=== PATIENT | female | born 1980 | race American Indian/Alaskan Native ===

== ENCOUNTER 2017-12-17 09:56 | Inpatient (IN) | payer MEDICAID, OTHER ==
[2017-12-17 09:57] VITALS: BMI 21.2
[2017-12-17] MEDS ORDERED: Sodium Chloride 0.9% 300 ML IV ONE (10:47)
[2017-12-17] MEDS ORDERED: Sodium Chloride 0.9% 500 ML IV ONE (10:58)
[2017-12-17 11:14] LABS: BASO # 0.1 K/uL (0.0-0.2); BASO % 0.4 % (0.0-2.0); EOS # 0.1 K/uL (0.0-0.7); EOS % 0.2 % (0.0-4.0); HEMOGLOBIN 7.4 g/dL (11.0-16.0); LYMPH # 1.2 K/uL (1.0-4.3); MEAN CELL VOLUME 83.6 fL (81.0-99.0); MEAN CORPUSCULAR HEMOGLOBIN 26.2 pg (27.0-31.0); MEAN CORPUSCULAR HGB CONC 31.3 g/dL (33.0-37.0); MEAN PLATELET VOLUME 7.4 fL (7.2-11.7); MONO # 1.5 K/uL (0.0-0.8); MONO % 6.4 % (0.0-10.0); NEUT # 21.1 K/uL (1.8-7.0); NRBC % 0.5 % (0.0-2.0); PLATELET COUNT 395 K/uL (130-400); RBC 2.82 Mil/uL (3.80-5.20); RED CELL DISTRIBUTION WIDTH 17.6 % (11.5-14.5)
[2017-12-17 11:23] LABS: VENOUS BLOOD GAS BASE EXCESS -26.6 mmol/L (0.0-2.0); VENOUS BLOOD GAS PCO2 14 mmHg (40-60); VENOUS BLOOD GAS PO2 75 mm/Hg (30-55); VENOUS BLOOD PH 6.98 (7.32-7.43)
[2017-12-17 11:30] LABS: ALB/GLOB RATIO 0.6 (1.0-2.1); ALBUMIN 3.5 g/dL (3.5-5.0); ALT/SGPT < 6 U/L (9-52); AST/SGOT 14 U/L (14-36); CALCIUM 8.8 mg/dl (8.6-10.4)
--- NOTE | 2017-12-17 11:33 | RAD ---
PROCEDURE: CHEST RADIOGRAPH, 1 VIEW HISTORY: SOB COMPARISON: No prior studies available FINDINGS: In situ dual-lumen dialysis catheter with tips in the SVC/RA junction. LUNGS: Poor inspiration with low lung volumes, crowded bronchovascular markings and minor bibasilar atelectasis. PLEURA: No pneumothorax or pleural fluid seen. CARDIOVASCULAR: Heart appears mildly enlarged OSSEOUS STRUCTURES: No significant abnormalities. VISUALIZED UPPER ABDOMEN: Normal. OTHER FINDINGS: None. IMPRESSION: Poor inspiration with low lung volumes, crowded bronchovascular markings and minor bibasilar atelectasis.
[2017-12-17 11:35] LABS: INR 1.2; PROTHROMBIN TIME 14.1 SECONDS (9.7-12.2)
[2017-12-17] MEDS ORDERED: Sodium Chloride 0.9% 200 ML IV ONE (11:44)
[2017-12-17 11:55] LABS: B-TYPE NATRIURETIC PEPTIDE 19600 pg/mL (0-450)
[2017-12-17 11:56] LABS: LYMPHOCYTE 4 % (20-40); MONOCYTE 3 % (0-10); NEUTROPHIL 93 % (50-75); TOTAL CELLS COUNTED 100
[2017-12-17 11:57] LABS: ANISOCYTOSIS SLIGHT; HYPOCHROMIC SLIGHT; PLATELET ESTIMATE NORMAL (NORMAL); POLYCHROMIC SLIGHT
[2017-12-17 12:13] LABS: BLOOD UREA NITROGEN 132 mg/dL (7-17)
--- NOTE | 2017-12-17 12:20 | C.PDOC ---
History Of Present Illness 37yo female, with history of ESRD currently on hemodialysis, presents to ED with complaints of weakness and states she has not had her dialysis for the past week due to insurance issues. She also states she has pressure ulcers to her buttock and right heel. She denies any chest pain, shortness of breath, fever or chills. She has no other medical complaints. Time Seen by Provider: 12/17/17 10:08 Chief Complaint (Nursing): Weakness/Neurological Deficit History Per: Patient History/Exam Limitations: no limitations Onset/Duration Of Symptoms: Days Current Symptoms Are (Timing): Still Present Past Medical History Vital Signs: Last Vital Signs Temp 97.3 F L 12/17/17 10:11 Pulse 81 12/17/17 12:43 Resp 20 12/17/17 12:43 BP 86/37 L 12/17/17 12:43 Pulse Ox 100 12/17/17 12:43 - Medical History PMH: Anemia, Diabetes, HTN, Chronic Kidney Disease Denies: Depression, Deep Vein Thrombosis Surgical History: Denies: Pacemaker - [facility] Procedures (05/05/17) DRAINAGE OF RIGHT KIDNEY, PERCUTANEOUS APPROACH, DIAGNOSTIC (05/05/17) EXCISION OF L FOOT SUBCU/FASCIA, OPEN APPROACH (05/05/17) EXCISION OF LEFT KIDNEY, PERCUTANEOUS APPROACH, DIAGNOSTIC (05/05/17) INSERT INFUSION DEV IN R INT JUGULAR VEIN, PERC (05/05/17) INSERTION OF INFUSION DEV INTO R SUBCLAV VEIN, PERC APPROACH (05/05/17) TRANSFUSE NONAUT RED BLOOD CELLS IN PERIPH VEIN, PERC (05/05/17) Family History: States: No Known Family Hx - Social History Hx Tobacco Use: No Hx Alcohol Use: No Hx Substance Use: No - Immunization History Hx Tetanus Toxoid Vaccination: No Hx Influenza Vaccination: No Hx Pneumococcal Vaccination: No Review Of Systems Except As Marked, All Systems Reviewed And Found Negative. Constitutional: Positive for: Weakness. Negative for: Fever, Chills Cardiovascular: Negative for: Chest Pain Respiratory: Negative for: Shortness of Breath Physical Exam - Physical Exam Appears: Non-toxic, Chronically Ill (cachectic) Skin: Normal Color, Warm, Dry Head: Atraumatic, Normacephalic Eye(s): bilateral: Normal Inspection, PERRL Neck: Normal ROM, Supple Chest: Symmetrical, Other (permacath right anterior chest) Cardiovascular: Rhythm Regular Respiratory: Normal Breath Sounds, Other (patient able to protect her own airway ) Gastrointestinal/Abdominal: Normal Exam, Soft, No Tenderness Extremity: Normal ROM, No Deformity, Other (5x3cm pressure ulcer to top sacral region with purulent drainage. Ulcer noted to right heel with granulation tissue ) Neurological/Psych: Oriented x3 ED Course And Treatment - Laboratory Results Result Diagrams: 12/17/17 11:01 12/17/17 11:01 ECG: Interpreted By Me, Viewed By Me ECG Rhythm: Sinus Rhythm ECG Interpretation: Normal Interpretation Of ECG: Normal intervals, normal axis, no ST/T changes Rate From EC O2 Sat by Pulse Oximetry: 100 (RA) Pulse Ox Interpretation: Normal - Other Rad CXR X-Ray: Read By Radiologist (11:30) Interpretation: FINDINGS: In situ dual-lumen dialysis catheter with tips in the SVC/RA junction. LUNGS: Poor inspiration with low lung volumes, crowded bronchovascular markings and minor bibasilar atelectasis. PLEURA: No pneumothorax or pleural fluid seen. CARDIOVASCULAR: Heart appears mildly enlarged. OSSEOUS STRUCTURES: No significant abnormalities. VISUALIZED UPPER ABDOMEN: Normal. OTHER FINDINGS: None. IMPRESSION: Poor inspiration with low lung volumes, crowded bronchovascular markings and minor bibasilar atelectasis. Critical Care Time - Critical Care Note Total Time (in mins): 75 Documented critical care: time excludes all time spent performing seperately billable procedures. Medical Decision Making Medical Decision Making: Impression: ESRD, metabolic acidosis Plan: -- Labs -- IV Fluids -- IV Cefepime 1gm in 50ml -- CXR Time: [address] Watt, ICU iron worker Page placed to Dr. Kay (patient's mechanical expert) Time: [address] Arreguin Time: [address] Kay (patient's mechanical expert) Time: [address] Arreguin, and patient to be admitted under him. time: 1154 Repeat vitals indicates improved blood pressure 90/40 Time: 1203 Dr. Ferrera who is covering for Dr. Kay is in the ER and will evaluate patient at bedside. Time: 1215 Patient seen and evaluated by Dr. Watt in the ER Disposition Discussed With DrElizabeth: Ching Arreguin Doctor Will See Patient In The: Hospital Counseled Patient/Family Regarding: Studies Performed, Diagnosis - Disposition Disposition: HOSPITALIZED Disposition Time: 13:16 Condition: FAIR - Clinical Impression Clinical Impression: ESRD (end stage renal disease), Metabolic acidosis - PA / EX ASSISTANT/PROGRAM DIRECTOR / Resident Statement MD/DO has reviewed & agrees with the documentation as recorded. - Scribe Statement The provider has reviewed the documentation as recorded by the Scribe (Erika Liu) Provider Attestation: All medical record entries made by the Scribe were at my direction and personally dictated by me. I have reviewed the chart and agree that the record accurately reflects my personal performance of the history, physical exam, medical decision making, and the department course for this patient. I have also personally directed, reviewed, and agree with the discharge instructions and disposition.
[2017-12-17 12:21] LABS: GFR AFRICAN-AMERICAN 4; GFR NON-AFRICAN AMERICAN 4
--- NOTE | 2017-12-17 12:23 | CP.PCM.CON ---
History of Present Illness - History of Present Illness History of Present Illness: 37 y/o AA female missed dilaysis over 1 week and cane to ER very weak. Found to have increased leukocytosis, severe metabolic acidosis, uremia, severe anemia. Poorly compliant in past with HD PMH: DM 2 DIABETIC NEPHROPATHY PVD PSH: PERMCATH LEFT LE ULCER REPAIR LEFT TOE #1 AMPUTATION Review of Systems - Constitutional Constitutional: Fatigue, Lethargy, Malaise, Weight Loss, Weakness - EENT Eyes: Blurred Vision Ears: absent: As Per HPI, Decreased Hearing, Ear Discharge, Ear Pain, Tinnitus, Abnormal Hearing, Disequilibrium, Dizziness, Other Nose/Mouth/Throat: absent: As Per HPI, Epistaxis, Nasal Congestion, Nasal Discharge, Nasal Obstruction, Nasal Trauma, Nose Pain, Post Nasal Drip, Sinus Pain, Sinus Pressure, Bleeding Gums, Change in Voice, Dental Pain, Dry Mouth, Dysphagia, Halitosis, Hoarsness, Lip Swelling, Mouth Lesions, Mouth Pain, Odynophagia, Sore Throat, Throat Swelling, Tongue Swelling, Facial Pain, Neck Pain, Neck Mass, Other - Cardiovascular Cardiovascular: Dyspnea on Exertion, Lightheadedness - Respiratory Respiratory: Cough, Dyspnea on Exertion - Gastrointestinal Gastrointestinal: Early Satiety, Nausea - Genitourinary Genitourinary: As Per HPI - Musculoskeletal Musculoskeletal: Muscle Cramps, Muscle Weakness, Myalgias - Integumentary Integumentary: Wounds - Neurological Neurological: Weakness Past Patient History - Infectious Disease Hx of Infectious Diseases: None - Tetanus Immunizations Tetanus Immunization: Unknown - Past Medical History & Family History Past Medical History?: Yes Past Family History: Reviewed and not pertinent - Past Social History Smoking Status: Never Smoked Chewing Tobacco Use: No Cigar Use: No Alcohol: None Drugs: Denies Home Situation {Lives}: With Family - CARDIAC Hx Pacemaker: No - PULMONARY Hx Respiratory Disorders: No - NEUROLOGICAL Other/Comment: NEUROPATHY - HEENT Hx HEENT Problems: No - RENAL Hx Chronic Kidney Disease: No - ENDOCRINE/METABOLIC Hx Diabetes Mellitus Type 2: Yes - HEMATOLOGICAL/ONCOLOGICAL Hx Anemia: Yes Hx Cancer: No - INTEGUMENTARY Hx Dermatological Problems: No - MUSCULOSKELETAL/RHEUMATOLOGICAL Hx Falls: No - GASTROINTESTINAL Hx Gastrointestinal Disorders: No - GENITOURINARY/GYNECOLOGICAL Hx Genitourinary Disorders: No - PSYCHIATRIC Hx Depression: No Hx Emotional Abuse: No Hx Physical Abuse: No Hx Substance Use: No - SURGICAL HISTORY Hx Section: Yes Hx Mastectomy: No - ANESTHESIA Hx Anesthesia: Yes Hx Anesthesia Reactions: No Meds Allergies/Adverse Reactions: Allergies Allergy/AdvReac Type Severity Reaction Status Date / Time vancomycin Allergy RASH Verified 12/17/17 10:17 - Medications Medications: Current Medications Cefepime HCl (Maxipime Iv 1 Gm Premix) 1 gm in 50 mls @ 100 mls/hr IVPB Q12H AUSTYN PRN Reason: Protocol Physical Exam - Constitutional Appears: Cachectic, Chronically Ill - Head Exam Head Exam: ATRAUMATIC, NORMAL INSPECTION - Eye Exam Eye Exam: EOMI, Normal appearance - Neck Exam Neck exam: Positive for: Normal Inspection. Negative for: Tenderness - Respiratory Exam Respiratory Exam: Clear to Auscultation Bilateral, NORMAL BREATHING PATTERN - Cardiovascular Exam Cardiovascular Exam: REGULAR RHYTHM, +S1 - GI/Abdominal Exam GI & Abdominal Exam: Soft. absent: Tenderness - Extremities Exam Extremities exam: Positive for: calf tenderness, tenderness - Neurological Exam Neurological exam: Abnormal Gait, CN II-XII Intact - Skin Skin Exam: Erythema, Pallor, Warm Results - Vital Signs Recent Vital Signs: Last Vital Signs Temp 97.3 F L 12/17/17 10:11 Pulse 83 12/17/17 11:35 Resp 20 12/17/17 11:35 BP 78/41 L 12/17/17 11:35 Pulse Ox 100 12/17/17 11:35 - Labs Result Diagrams: 12/17/17 11:01 12/17/17 11:01 Labs: Laboratory Results - last 24 hr 12/17/17 12/17/17 12/17/17 10:16 11:01 11:01 WBC 24.0 H RBC 2.82 L Hgb 7.4 L Hct 23.6 L MCV 83.6 MCH 26.2 L MCHC 31.3 L RDW 17.6 H Plt Count 395 MPV 7.4 Neut % (Auto) 88.0 H Lymph % (Auto) 5.0 L [place] % (Auto) 6.4 Eos % (Auto) 0.2 Baso % (Auto) 0.4 Neut # (Auto) 21.1 H Lymph # (Auto) 1.2 [place] # (Auto) 1.5 H Eos # (Auto) 0.1 Baso # (Auto) 0.1 Neutrophils % (Manual) 93 H Lymphocytes % (Manual) 4 L Monocytes % (Manual) 3 Platelet Estimate Normal Polychromasia Slight Hypochromasia (manual) Slight Anisocytosis (manual) Slight PT INR APTT pO2 VBG pH VBG pCO2 VBG HCO3 VBG Total CO2 VBG O2 Sat (Calc) VBG Base Excess VBG Potassium Glucose Lactate Crit Value Called To Crit Value Called By Crit Value Read Back Blood Gas Notified Time Sodium 142 Potassium 5.1 Chloride 113 H BUN 132 H* POC Glucose (mg/dL) 259 H Random Glucose 316 H Calcium 8.8 Magnesium 2.8 H Total Bilirubin 0.8 AST 14 D ALT < 6 L Alkaline Phosphatase 193 H D Total Creatine Kinase 41 Troponin I 0.0370 NT-Pro-B Natriuret Pep 90038 H Total Protein 9.6 H Albumin 3.5 Globulin 6.1 H Albumin/Globulin Ratio 0.6 L Venous Blood Potassium Serum Ketones Negative 12/17/17 12/17/17 11:01 11:18 WBC RBC Hgb Hct MCV MCH MCHC RDW Plt Count MPV Neut % (Auto) Lymph % (Auto) [place] % (Auto) Eos % (Auto) Baso % (Auto) Neut # (Auto) Lymph # (Auto) [place] # (Auto) Eos # (Auto) Baso # (Auto) Neutrophils % (Manual) Lymphocytes % (Manual) Monocytes % (Manual) Platelet Estimate Polychromasia Hypochromasia (manual) Anisocytosis (manual) PT 14.1 H INR 1.2 APTT 36 H pO2 75 H VBG pH 6.98 L* VBG pCO2 14 L* VBG HCO3 3.8 VBG Total CO2 3.7 L VBG O2 Sat (Calc) 96.6 H VBG Base Excess -26.6 L VBG Potassium 4.9 Glucose 308 H Lactate 1.4 Crit Value Called To Dr neff Crit Value Called By Mamadou arceo winemaker Crit Value Read Back Y Blood Gas Notified Time 1122 Sodium 136.0 Potassium Chloride 109.0 H BUN POC Glucose (mg/dL) Random Glucose Calcium Magnesium Total Bilirubin AST ALT Alkaline Phosphatase Total Creatine Kinase Troponin I NT-Pro-B Natriuret Pep Total Protein Albumin Globulin Albumin/Globulin Ratio Venous Blood Potassium 4.9 Serum Ketones Assessment & Plan (1) Type 2 diabetes mellitus with diabetic nephropathy Status: Acute (2) ESRD (end stage renal disease) Status: Acute (3) Metabolic acidosis Status: Acute (4) Sepsis associated with vascular access catheter Status: Acute - Assessment and Plan (Free Text) Assessment: r/o sepsis- suspect line sepsis ESRD Diabetic nephropathy dialysis non-compliance severe metabolic acidosis severe chronic anemia Plan: Immediate dialysis Blood cultures IV ABs Would recommend HD AV access
[2017-12-17] MEDS ORDERED: DOPamine 400mg/250ml D5W 400 MG/250 ML BAG IV ONE (12:39)
[2017-12-17] MEDS: DOPamine 400mg/250ml D5W 400 MG/250 ML BAG IV PRN (12:43)
[2017-12-17] MEDS: Cefepime IV 1 gm in Dextrose 1 GM/50 ML BAG IVPB SCH ×2 (12:52→23:52)
--- NOTE | 2017-12-17 13:00 | CP.PCM.CON ---
History of Present Illness - History of Present Illness History of Present Illness: Critical Care consult note for Dr. Watt This is a 37 year old female with PMHx ESRD on HD (non-compliant), DM 1, HTN, Anemia, DVT who presents complaining of general malaise and weakness. Patient has history of medical non-compliance which extends to her hemodialysis sessions. Patient has not had dialysis in 1 week. Patient today presents with metabolic acidosis similar to prior presentation in [facility] in April 2017. She was fluid resuscitated with 500 cc of NS in the ED today. Patient denies fever, chills, chest pain, dyspnea. Patient's primary complaint at time of encounter was difficulty sleeping. PMHx: HTN, DM2, Anemia, Rt leg DVT PSHx: , Rt leg vasc surgery Allergies: Vancomycin--rash Social: Denied tobacco/etoh/illicit drugs, pt is wheelchair bound Review of Systems - Constitutional Constitutional: absent: Chills, Fever - EENT Eyes: absent: Change in Vision Ears: absent: Decreased Hearing Nose/Mouth/Throat: absent: Nasal Congestion - Cardiovascular Cardiovascular: absent: Chest Pain - Respiratory Respiratory: absent: Dyspnea - Gastrointestinal Gastrointestinal: absent: Abdominal Pain - Genitourinary Genitourinary: absent: Dysuria - Musculoskeletal Musculoskeletal: Other (chronic leg weakness) - Integumentary Integumentary: Other (chronic diabetic foot ulcers) - Neurological Neurological: Weakness - Psychiatric Psychiatric: Other (poor sleep). absent: Change in Appetite - Endocrine Endocrine: absent: Palpitations Past Patient History - Infectious Disease Hx of Infectious Diseases: None - Tetanus Immunizations Tetanus Immunization: Unknown - Past Medical History & Family History Past Medical History?: Yes Past Family History: Reviewed and not pertinent - Past Social History Smoking Status: Never Smoked Chewing Tobacco Use: No Cigar Use: No Alcohol: None Drugs: Denies Home Situation {Lives}: With Family - CARDIAC Hx Hypertension: Yes Hx Pacemaker: No - PULMONARY Hx Respiratory Disorders: No - NEUROLOGICAL Other/Comment: NEUROPATHY - HEENT Hx HEENT Problems: No - RENAL Hx Chronic Kidney Disease: Yes - ENDOCRINE/METABOLIC Hx Diabetes Mellitus Type 2: Yes - HEMATOLOGICAL/ONCOLOGICAL Hx Anemia: Yes - INTEGUMENTARY Hx Dermatological Problems: No - MUSCULOSKELETAL/RHEUMATOLOGICAL Hx Falls: No - GASTROINTESTINAL Hx Gastrointestinal Disorders: No - GENITOURINARY/GYNECOLOGICAL Hx Genitourinary Disorders: No - PSYCHIATRIC Hx Depression: No Hx Substance Use: No - SURGICAL HISTORY Hx Section: Yes Hx Mastectomy: No - ANESTHESIA Hx Anesthesia: Yes Hx Anesthesia Reactions: No Meds Allergies/Adverse Reactions: Allergies Allergy/AdvReac Type Severity Reaction Status Date / Time vancomycin Allergy RASH Verified 12/17/17 10:17 - Medications Medications: Current Medications Cefepime HCl (Maxipime Iv 1 Gm Premix) 1 gm in 50 mls @ 100 mls/hr IVPB Q12H AUSTYN PRN Reason: Protocol Last Admin: 12/17/17 12:52 Dose: 100 mls/hr Dopamine HCl/Dextrose (Dopamine 400mg/250ml D5w) 400 mg in 250 mls @ 3.912 mls/ hr IV .Q24H PRN; Protocol; 2 MCG/KG/MIN PRN Reason: TITRATE PER MD ORDER Last Admin: 12/17/17 12:43 Dose: 2 mcg/kg/min, 3.912 mls/hr Insulin Aspart (Novolog) 0 unit SC ACHS AUSTYN PRN Reason: Protocol Physical Exam - Constitutional Appears: No Acute Distress, Cachectic, Chronically Ill - Head Exam Head Exam: ATRAUMATIC, NORMOCEPHALIC - Eye Exam Eye Exam: EOMI, PERRL - ENT Exam ENT Exam: Mucous Membranes Moist - Respiratory Exam Respiratory Exam: Decreased Breath Sounds. absent: Rales, Rhonchi, Wheezes - Cardiovascular Exam Cardiovascular Exam: REGULAR RHYTHM, +S1, +S2 - GI/Abdominal Exam GI & Abdominal Exam: Normal Bowel Sounds, Soft. absent: Tenderness - Extremities Exam Extremities exam: Negative for: pedal edema Additional comments: Multiple leg/foot ulcers in different stages of healing - Neurological Exam Neurological exam: Alert, Oriented x3 - Psychiatric Exam Psychiatric exam: Flat Affect, Normal Mood - Skin Skin Exam: Dry, Warm Additional comments: Right sided subclavian dialysis access Results - Vital Signs Recent Vital Signs: Last Vital Signs Temp 97.3 F L 12/17/17 10:11 Pulse 81 12/17/17 12:43 Resp 20 12/17/17 12:43 BP 86/37 L 12/17/17 12:43 Pulse Ox 100 12/17/17 12:43 - Labs Result Diagrams: 12/17/17 11:01 12/17/17 11:01 Labs: Laboratory Results - last 24 hr 12/17/17 12/17/17 12/17/17 10:16 11:01 11:01 WBC 24.0 H RBC 2.82 L Hgb 7.4 L Hct 23.6 L MCV 83.6 MCH 26.2 L MCHC 31.3 L RDW 17.6 H Plt Count 395 MPV 7.4 Neut % (Auto) 88.0 H Lymph % (Auto) 5.0 L [place] % (Auto) 6.4 Eos % (Auto) 0.2 Baso % (Auto) 0.4 Neut # (Auto) 21.1 H Lymph # (Auto) 1.2 [place] # (Auto) 1.5 H Eos # (Auto) 0.1 Baso # (Auto) 0.1 Neutrophils % (Manual) 93 H Lymphocytes % (Manual) 4 L Monocytes % (Manual) 3 Platelet Estimate Normal Polychromasia Slight Hypochromasia (manual) Slight Anisocytosis (manual) Slight PT INR APTT pO2 VBG pH VBG pCO2 VBG HCO3 VBG Total CO2 VBG O2 Sat (Calc) VBG Base Excess VBG Potassium Glucose Lactate Crit Value Called To Crit Value Called By Crit Value Read Back Blood Gas Notified Time Sodium 142 Potassium 5.1 Chloride 113 H Carbon Dioxide < 5 L* Anion Gap 29 H BUN 132 H* Creatinine 11.8 H* D Est GFR ( Amer) 4 Est GFR (Non-Af Amer) 4 POC Glucose (mg/dL) 259 H Random Glucose 316 H Calcium 8.8 Magnesium 2.8 H Total Bilirubin 0.8 AST 14 D ALT < 6 L Alkaline Phosphatase 193 H D Total Creatine Kinase 41 Troponin I 0.0370 NT-Pro-B Natriuret Pep 44029 H Total Protein 9.6 H Albumin 3.5 Globulin 6.1 H Albumin/Globulin Ratio 0.6 L Beta HCG, Quant < 2.39 Venous Blood Potassium Serum Ketones Negative 12/17/17 12/17/17 11:01 11:18 WBC RBC Hgb Hct MCV MCH MCHC RDW Plt Count MPV Neut % (Auto) Lymph % (Auto) [place] % (Auto) Eos % (Auto) Baso % (Auto) Neut # (Auto) Lymph # (Auto) [place] # (Auto) Eos # (Auto) Baso # (Auto) Neutrophils % (Manual) Lymphocytes % (Manual) Monocytes % (Manual) Platelet Estimate Polychromasia Hypochromasia (manual) Anisocytosis (manual) PT 14.1 H INR 1.2 APTT 36 H pO2 75 H VBG pH 6.98 L* VBG pCO2 14 L* VBG HCO3 3.8 VBG Total CO2 3.7 L VBG O2 Sat (Calc) 96.6 H VBG Base Excess -26.6 L VBG Potassium 4.9 Glucose 308 H Lactate 1.4 Crit Value Called To Dr neff Crit Value Called By Mamadou arceo glue reel operator Crit Value Read Back Y Blood Gas Notified Time 1122 Sodium 136.0 Potassium Chloride 109.0 H Carbon Dioxide Anion Gap BUN Creatinine Est GFR ( Amer) Est GFR (Non-Af Amer) POC Glucose (mg/dL) Random Glucose Calcium Magnesium Total Bilirubin AST ALT Alkaline Phosphatase Total Creatine Kinase Troponin I NT-Pro-B Natriuret Pep Total Protein Albumin Globulin Albumin/Globulin Ratio Beta HCG, Quant Venous Blood Potassium 4.9 Serum Ketones Assessment & Plan - Assessment and Plan (Free Text) Assessment: This is a 37 year old female with PMHx ESRD on HD (non-compliant), DM 1, HTN, Anemia, DVT who presented with general malaise. She has not had dialysis in 1 week. Admitted to the ICU in need of urgent dialysis and found with metabolic acidosis. Neuro Awake, verbal Cardio Assessment: Hypotension Dopamine drip Pulm Saturating well on room air GI Renal dialysis diet Endocrine Assessment: DM 1 Aspart ISS Renal Assessment: ESRD on HD, non-compliant with HD Urgent dialysis today--will transfuse 2 units pRBCs with dialysis per nephro Dialysis MWF ordered Infectious Disease Cefepime 1 gm Q12H Prophylaxis Heparin SC Q12H GI ppx not indicated Discussed with Dr. Watt
--- NOTE | 2017-12-17 13:35 | CP.PCM.HP ---
History of Present Illness - History of Present Illness History of Present Illness: admitted to icu in severe metabolic acidosis with sepsis PT WAS ADMITTED IN [facility] IN 2017. HAD RENAL FAILURE ON PERMA CATH , AND FUNGAL INFECTION IN KIDNEY BY BIOPSY. SHE WAS ON IV MICAFUNGIN . SHE LEFT HOSPITAL AMA CURRENTLY ON DIALYSIS VIA SAME CATHER NOT GONE FOR DIALYSIS FOR 1 WEEK HAS VASCULAR SURGERY IN LEG RASH WITH IV VANCO NO SMOKING ILLICIT DRUGS ALERT AWAKE BP 90'S LUNGS CLEAR HEART N LOWER EXT MULTIPLE ULCERS ASS SEPTIC SHOCK ACUTE ON CH RENAL FAILURE T2DM Present on Admission - Present on Admission Any Indicators Present on Admission: No Past Patient History - Infectious Disease Hx of Infectious Diseases: None - Tetanus Immunizations Tetanus Immunization: Unknown - Past Medical History & Family History Past Medical History?: Yes Past Family History: Reviewed and not pertinent - Past Social History Smoking Status: Never Smoked Chewing Tobacco Use: No Cigar Use: No Alcohol: None Drugs: Denies Home Situation {Lives}: With Family - CARDIAC Hx Hypertension: Yes Hx Pacemaker: No - PULMONARY Hx Respiratory Disorders: No - NEUROLOGICAL Other/Comment: NEUROPATHY - HEENT Hx HEENT Problems: No - RENAL Hx Chronic Kidney Disease: Yes - ENDOCRINE/METABOLIC Hx Diabetes Mellitus Type 2: Yes - HEMATOLOGICAL/ONCOLOGICAL Hx Anemia: Yes - INTEGUMENTARY Hx Dermatological Problems: No - MUSCULOSKELETAL/RHEUMATOLOGICAL Hx Falls: No - GASTROINTESTINAL Hx Gastrointestinal Disorders: No - GENITOURINARY/GYNECOLOGICAL Hx Genitourinary Disorders: No - PSYCHIATRIC Hx Depression: No Hx Substance Use: No - SURGICAL HISTORY Hx Section: Yes Hx Mastectomy: No - ANESTHESIA Hx Anesthesia: Yes Hx Anesthesia Reactions: No Meds Allergies/Adverse Reactions: Allergies Allergy/AdvReac Type Severity Reaction Status Date / Time vancomycin Allergy RASH Verified 12/17/17 10:17 Results - Vital Signs Recent Vital Signs: Last Vital Signs Temp 97.3 F L 12/17/17 10:11 Pulse 81 12/17/17 12:43 Resp 20 12/17/17 12:43 BP 86/37 L 12/17/17 12:43 Pulse Ox 100 12/17/17 13:16 - Labs Result Diagrams: 12/17/17 11:01 12/17/17 11:01 Labs: Laboratory Results - last 24 hr 12/17/17 12/17/17 12/17/17 10:16 11:01 11:01 WBC 24.0 H RBC 2.82 L Hgb 7.4 L Hct 23.6 L MCV 83.6 MCH 26.2 L MCHC 31.3 L RDW 17.6 H Plt Count 395 MPV 7.4 Neut % (Auto) 88.0 H Lymph % (Auto) 5.0 L [place] % (Auto) 6.4 Eos % (Auto) 0.2 Baso % (Auto) 0.4 Neut # (Auto) 21.1 H Lymph # (Auto) 1.2 [place] # (Auto) 1.5 H Eos # (Auto) 0.1 Baso # (Auto) 0.1 Neutrophils % (Manual) 93 H Lymphocytes % (Manual) 4 L Monocytes % (Manual) 3 Platelet Estimate Normal Polychromasia Slight Hypochromasia (manual) Slight Anisocytosis (manual) Slight PT INR APTT pO2 VBG pH VBG pCO2 VBG HCO3 VBG Total CO2 VBG O2 Sat (Calc) VBG Base Excess VBG Potassium Glucose Lactate Crit Value Called To Crit Value Called By Crit Value Read Back Blood Gas Notified Time Sodium 142 Potassium 5.1 Chloride 113 H Carbon Dioxide < 5 L* Anion Gap 29 H BUN 132 H* Creatinine 11.8 H* D Est GFR ( Amer) 4 Est GFR (Non-Af Amer) 4 POC Glucose (mg/dL) 259 H Random Glucose 316 H Calcium 8.8 Magnesium 2.8 H Total Bilirubin 0.8 AST 14 D ALT < 6 L Alkaline Phosphatase 193 H D Total Creatine Kinase 41 Troponin I 0.0370 NT-Pro-B Natriuret Pep 35600 H Total Protein 9.6 H Albumin 3.5 Globulin 6.1 H Albumin/Globulin Ratio 0.6 L Beta HCG, Quant < 2.39 Venous Blood Potassium Serum Ketones Negative 12/17/17 12/17/17 11:01 11:18 WBC RBC Hgb Hct MCV MCH MCHC RDW Plt Count MPV Neut % (Auto) Lymph % (Auto) [place] % (Auto) Eos % (Auto) Baso % (Auto) Neut # (Auto) Lymph # (Auto) [place] # (Auto) Eos # (Auto) Baso # (Auto) Neutrophils % (Manual) Lymphocytes % (Manual) Monocytes % (Manual) Platelet Estimate Polychromasia Hypochromasia (manual) Anisocytosis (manual) PT 14.1 H INR 1.2 APTT 36 H pO2 75 H VBG pH 6.98 L* VBG pCO2 14 L* VBG HCO3 3.8 VBG Total CO2 3.7 L VBG O2 Sat (Calc) 96.6 H VBG Base Excess -26.6 L VBG Potassium 4.9 Glucose 308 H Lactate 1.4 Crit Value Called To Dr neff Crit Value Called By Mamadou arceo aircraft sheet metal mechanic Crit Value Read Back Y Blood Gas Notified Time 1122 Sodium 136.0 Potassium Chloride 109.0 H Carbon Dioxide Anion Gap BUN Creatinine Est GFR ( Amer) Est GFR (Non-Af Amer) POC Glucose (mg/dL) Random Glucose Calcium Magnesium Total Bilirubin AST ALT Alkaline Phosphatase Total Creatine Kinase Troponin I NT-Pro-B Natriuret Pep Total Protein Albumin Globulin Albumin/Globulin Ratio Beta HCG, Quant Venous Blood Potassium 4.9 Serum Ketones
[2017-12-17] MEDS: (Novolog) Insulin Aspart, Recombinant 100 u/ml 10 ml vial SC SCH ×2 (17:19→21:46)
--- NOTE | 2017-12-17 18:08 | CP.PCM.CON ---
History of Present Illness - History of Present Illness History of Present Illness: INFECTIOUS DISEASE CONSULT; HPI;. This is a 37 year old female with PMHx ESRD on HD (non-compliant), DM 1, HTN, Anemia, DVT who presents complaining of general malaise and weakness. Patient has history of medical non-compliance which extends to her hemodialysis sessions. Patient has not had dialysis in 1 week. Patient today presents with metabolic acidosis similar to prior presentation in [facility] in April 2017. She was fluid resuscitated with 500 cc of NS in the ED today. Patient denies fever, chills, chest pain, dyspnea. Patient's primary complaint at time of encounter was difficulty sleeping. INFECTIOUS DISEASE CONSULTATION REQUESTED BY PMD FOR BILATERAL LOWER EXTREMITY ULCERS AND DECUBITUS ULCER SACRUM DRAINING PURULENT DRAINAGE. HISTORY IS SKETCHY.PATIENT UNDERGOING EMERGENCY HEMODIALYSIS PRESENTLY. PATIENT ALLERGIC TO VANCOMYCIN AND STATES SHE GETS A RASH. PMHx: HTN, DM2, Anemia, Rt leg DVT PSHx: , Rt leg vasc surgery Allergies: Vancomycin--rash Social: Denied tobacco/etoh/illicit drugs, pt is wheelchair bound Review of Systems - Review of Systems All systems: reviewed and no additional remarkable complaints except (PATIENT WHEELCHAIR-BOUND/AND HAS CHRONIC ULCERS BOTH LOWER EXTREMITIES.) Past Patient History - Infectious Disease Hx of Infectious Diseases: None - Tetanus Immunizations Tetanus Immunization: Unknown - Past Medical History & Family History Past Medical History?: Yes Past Family History: Reviewed and not pertinent - Past Social History Smoking Status: Never Smoked Chewing Tobacco Use: No Cigar Use: No Alcohol: None Drugs: Denies Home Situation {Lives}: With Family - CARDIAC Hx Hypertension: Yes Hx Pacemaker: No - PULMONARY Hx Respiratory Disorders: No - NEUROLOGICAL Other/Comment: NEUROPATHY - HEENT Hx HEENT Problems: No - RENAL Hx Chronic Kidney Disease: Yes - ENDOCRINE/METABOLIC Hx Diabetes Mellitus Type 2: Yes - HEMATOLOGICAL/ONCOLOGICAL Hx Anemia: Yes - INTEGUMENTARY Hx Dermatological Problems: No - MUSCULOSKELETAL/RHEUMATOLOGICAL Hx Falls: No - GASTROINTESTINAL Hx Gastrointestinal Disorders: No - GENITOURINARY/GYNECOLOGICAL Hx Genitourinary Disorders: No - PSYCHIATRIC Hx Depression: No Hx Substance Use: No - SURGICAL HISTORY Hx Section: Yes Hx Mastectomy: No - ANESTHESIA Hx Anesthesia: Yes Hx Anesthesia Reactions: No Meds Allergies/Adverse Reactions: Allergies Allergy/AdvReac Type Severity Reaction Status Date / Time vancomycin Allergy RASH Verified 12/17/17 10:17 - Medications Medications: Current Medications Heparin Sodium (Porcine) (Heparin) 5,000 units SC Q12H AUSTYN Cefepime HCl (Maxipime Iv 1 Gm Premix) 1 gm in 50 mls @ 100 mls/hr IVPB Q12H AUSTYN PRN Reason: Protocol Last Admin: 12/17/17 12:52 Dose: 100 mls/hr Dopamine HCl/Dextrose (Dopamine 400mg/250ml D5w) 400 mg in 250 mls @ 3.912 mls/ hr IV .Q24H PRN; Protocol; 2 MCG/KG/MIN PRN Reason: TITRATE PER MD ORDER Last Admin: 12/17/17 12:43 Dose: 2 mcg/kg/min, 3.912 mls/hr Insulin Aspart (Novolog) 0 unit SC ACHS AUSTYN PRN Reason: Protocol Last Admin: 12/17/17 17:19 Dose: 4 unit Physical Exam - Constitutional Appears: No Acute Distress, Unkempt - Head Exam Head Exam: NORMAL INSPECTION - Eye Exam Eye Exam: EOMI, PERRL - ENT Exam ENT Exam: Normal Oropharynx - Neck Exam Neck exam: Positive for: Normal Inspection - Respiratory Exam Respiratory Exam: Clear to Auscultation Bilateral - Cardiovascular Exam Cardiovascular Exam: REGULAR RHYTHM, +S1, +S2 - GI/Abdominal Exam GI & Abdominal Exam: Normal Bowel Sounds, Soft - Extremities Exam Extremities exam: Negative for: calf tenderness, pedal edema (BI- LATERAL LOWER EXTREMITY ULCERS ON LEGS AND FEET.) - Neurological Exam Neurological exam: Alert, Oriented x3 - Skin Skin Exam: Normal Color (THERE IS ALSO SACRAL DECUBITUS ULCER DRAINING SEROPURULENT DRAINAGE) Results - Vital Signs Recent Vital Signs: Last Vital Signs Temp 97.3 F L 12/17/17 17:51 Pulse 107 H 12/17/17 17:51 Resp 25 H 12/17/17 17:51 BP 123/81 12/17/17 17:51 Pulse Ox 100 12/17/17 13:16 - Labs Result Diagrams: 12/17/17 11:01 12/17/17 11:01 Labs: Laboratory Results - last 24 hr 12/17/17 12/17/17 12/17/17 10:16 11:01 11:01 WBC 24.0 H RBC 2.82 L Hgb 7.4 L Hct 23.6 L MCV 83.6 MCH 26.2 L MCHC 31.3 L RDW 17.6 H Plt Count 395 MPV 7.4 Neut % (Auto) 88.0 H Lymph % (Auto) 5.0 L [place] % (Auto) 6.4 Eos % (Auto) 0.2 Baso % (Auto) 0.4 Neut # (Auto) 21.1 H Lymph # (Auto) 1.2 [place] # (Auto) 1.5 H Eos # (Auto) 0.1 Baso # (Auto) 0.1 Neutrophils % (Manual) 93 H Lymphocytes % (Manual) 4 L Monocytes % (Manual) 3 Platelet Estimate Normal Polychromasia Slight Hypochromasia (manual) Slight Anisocytosis (manual) Slight PT INR APTT pO2 VBG pH VBG pCO2 VBG HCO3 VBG Total CO2 VBG O2 Sat (Calc) VBG Base Excess VBG Potassium Glucose Lactate Crit Value Called To Crit Value Called By Crit Value Read Back Blood Gas Notified Time Sodium 142 Potassium 5.1 Chloride 113 H Carbon Dioxide < 5 L* Anion Gap 29 H BUN 132 H* Creatinine 11.8 H* D Est GFR ( Amer) 4 Est GFR (Non-Af Amer) 4 POC Glucose (mg/dL) 259 H Random Glucose 316 H Calcium 8.8 Magnesium 2.8 H Total Bilirubin 0.8 AST 14 D ALT < 6 L Alkaline Phosphatase 193 H D Total Creatine Kinase 41 Troponin I 0.0370 NT-Pro-B Natriuret Pep 06116 H Total Protein 9.6 H Albumin 3.5 Globulin 6.1 H Albumin/Globulin Ratio 0.6 L Beta HCG, Quant < 2.39 Venous Blood Potassium Serum Ketones Negative Blood Type Antibody Screen 12/17/17 12/17/17 12/17/17 11:01 11:18 13:53 WBC RBC Hgb Hct MCV MCH MCHC RDW Plt Count MPV Neut % (Auto) Lymph % (Auto) [place] % (Auto) Eos % (Auto) Baso % (Auto) Neut # (Auto) Lymph # (Auto) [place] # (Auto) Eos # (Auto) Baso # (Auto) Neutrophils % (Manual) Lymphocytes % (Manual) Monocytes % (Manual) Platelet Estimate Polychromasia Hypochromasia (manual) Anisocytosis (manual) PT 14.1 H INR 1.2 APTT 36 H pO2 75 H VBG pH 6.98 L* VBG pCO2 14 L* VBG HCO3 3.8 VBG Total CO2 3.7 L VBG O2 Sat (Calc) 96.6 H VBG Base Excess -26.6 L VBG Potassium 4.9 Glucose 308 H Lactate 1.4 Crit Value Called To Dr neff Crit Value Called By Mamadou arceo ammonium nitrate neutralizer Crit Value Read Back Y Blood Gas Notified Time 1122 Sodium 136.0 Potassium Chloride 109.0 H Carbon Dioxide Anion Gap BUN Creatinine Est GFR ( Amer) Est GFR (Non-Af Amer) POC Glucose (mg/dL) Random Glucose Calcium Magnesium Total Bilirubin AST ALT Alkaline Phosphatase Total Creatine Kinase Troponin I NT-Pro-B Natriuret Pep Total Protein Albumin Globulin Albumin/Globulin Ratio Beta HCG, Quant Venous Blood Potassium 4.9 Serum Ketones Blood Type B POSITIVE Antibody Screen Negative 12/17/17 15:56 WBC RBC Hgb Hct MCV MCH MCHC RDW Plt Count MPV Neut % (Auto) Lymph % (Auto) [place] % (Auto) Eos % (Auto) Baso % (Auto) Neut # (Auto) Lymph # (Auto) [place] # (Auto) Eos # (Auto) Baso # (Auto) Neutrophils % (Manual) Lymphocytes % (Manual) Monocytes % (Manual) Platelet Estimate Polychromasia Hypochromasia (manual) Anisocytosis (manual) PT INR APTT pO2 VBG pH VBG pCO2 VBG HCO3 VBG Total CO2 VBG O2 Sat (Calc) VBG Base Excess VBG Potassium Glucose Lactate Crit Value Called To Crit Value Called By Crit Value Read Back Blood Gas Notified Time Sodium Potassium Chloride Carbon Dioxide Anion Gap BUN Creatinine Est GFR ( Amer) Est GFR (Non-Af Amer) POC Glucose (mg/dL) 263 H Random Glucose Calcium Magnesium Total Bilirubin AST ALT Alkaline Phosphatase Total Creatine Kinase Troponin I NT-Pro-B Natriuret Pep Total Protein Albumin Globulin Albumin/Globulin Ratio Beta HCG, Quant Venous Blood Potassium Serum Ketones Blood Type Antibody Screen - Imaging and Cardiology Chest x-ray Status: Report reviewed by me (POOR INSPIRATION. BIBASILAR ATELECTASIS.) Assessment & Plan (1) Sepsis Status: Acute Priority: Medium (2) Decubitus ulcers Status: Acute (3) Metabolic acidosis Status: Acute (4) ESRD (end stage renal disease) Status: Acute (5) Type 2 diabetes mellitus with diabetic nephropathy Status: Acute (6) PVD (peripheral vascular disease) Status: Acute - Assessment and Plan (Free Text) Plan: PLAN; PANCULTURES. UA/ URINE CULTURE SACRAL DECUBITUS ULCER CULTURE. X-RAY LUMBOSACRAL SPINE RULE OUT OSTEOMYELITIS MRSA SCREEN. CONTINUE iv CEFEPIME 1 G EVERY 12 HOURLY 12/17/17 ADD iv DAPTOMYCIN 6 MG/KG iv PIGGYBAG Q 48 HOURLY FOR MRSA COVERAGE, WHILE AWAITING BLOOD CULTURES AND WOUND CULTURES.12/17 17. PODIATRY CONSULT/WOUND CARE. MONITOR LFTS/CPK PATIENT ON DAPTOMYCIN. WILL FOLLOW ALONG WITH YOU AND MAKE RECOMMENDATIONS NEEDED.
[2017-12-17] MEDS ORDERED: DAPTOmycin 500 mg Inj (Cubicin) IV SCH (18:15)
[2017-12-17 22:28] LABS: BASO # 0.1 K/uL (0.0-0.2); BASO % 0.4 % (0.0-2.0); EOS # 0.1 K/uL (0.0-0.7); EOS % 0.4 % (0.0-4.0); HEMOGLOBIN 10.7 g/dL (11.0-16.0); LYMPH % 4.1 % (20.0-40.0); MEAN CORPUSCULAR HEMOGLOBIN 27.3 pg (27.0-31.0); MEAN CORPUSCULAR HGB CONC 34.5 g/dL (33.0-37.0); MEAN PLATELET VOLUME 7.1 fL (7.2-11.7); MONO # 1.2 K/uL (0.0-0.8); MONO % 5.4 % (0.0-10.0); NEUT # 20.6 K/uL (1.8-7.0); NEUT % 89.7 % (50.0-75.0); NRBC % 1.7 % (0.0-2.0); PLATELET COUNT 400 K/uL (130-400); RBC 3.93 Mil/uL (3.80-5.20); RED CELL DISTRIBUTION WIDTH 16.7 % (11.5-14.5)
[2017-12-17 23:21] LABS: LYMPHOCYTE 3 % (20-40); MONOCYTE 8 % (0-10); NEUTROPHIL 89 % (50-75); NUCLEATED RED BLOOD CELL 2 % (0-0); TOTAL CELLS COUNTED 100
[2017-12-17 23:22] LABS: ANISOCYTOSIS SLIGHT; MICROCYTOSIS SLIGHT; PLATELET ESTIMATE NORMAL (NORMAL)
[2017-12-17] MEDS ORDERED: Acetaminophen 650mg/20.3ml solution UD PO ONE (23:45)
[2017-12-18] MEDS: DOPamine 400mg/250ml D5W 400 MG/250 ML BAG IV PRN (03:10)
[2017-12-18 05:04] LABS: BASO # 0.1 K/uL (0.0-0.2); BASO % 0.5 % (0.0-2.0); EOS # 0.1 K/uL (0.0-0.7); EOS % 0.2 % (0.0-4.0); HEMOGLOBIN 10.7 g/dL (11.0-16.0); LYMPH % 3.9 % (20.0-40.0); MEAN CORPUSCULAR HEMOGLOBIN 26.7 pg (27.0-31.0); MEAN CORPUSCULAR HGB CONC 33.3 g/dL (33.0-37.0); MEAN PLATELET VOLUME 6.8 fL (7.2-11.7); MONO # 1.6 K/uL (0.0-0.8); MONO % 6.3 % (0.0-10.0); NEUT # 21.9 K/uL (1.8-7.0); NEUT % 89.1 % (50.0-75.0); NRBC % 1.2 % (0.0-2.0); PLATELET COUNT 375 K/uL (130-400); RBC 4.01 Mil/uL (3.80-5.20); RED CELL DISTRIBUTION WIDTH 16.3 % (11.5-14.5); WHITE BLOOD COUNT 24.6 K/uL (4.8-10.8)
[2017-12-18 05:35] LABS: ALB/GLOB RATIO 0.6 (1.0-2.1); ALBUMIN 3.6 g/dL (3.5-5.0); ALT/SGPT < 6 U/L (9-52); AST/SGOT 13 U/L (14-36); BLOOD UREA NITROGEN 57 mg/dL (7-17); CALCIUM 8.6 mg/dl (8.6-10.4); GFR AFRICAN-AMERICAN 10; GFR NON-AFRICAN AMERICAN 8
[2017-12-18] MEDS: (Novolog) Insulin Aspart, Recombinant 100 u/ml 10 ml vial SC SCH ×4 (08:15→21:30)
[2017-12-18 08:20] LABS: LYMPHOCYTE 5 % (20-40); MONOCYTE 5 % (0-10); NEUTROPHIL 90 % (50-75); NUCLEATED RED BLOOD CELL 1 % (0-0); TOTAL CELLS COUNTED 100
[2017-12-18 08:21] LABS: ANISOCYTOSIS SLIGHT; HYPOCHROMIC SLIGHT; PLATELET ESTIMATE NORMAL (NORMAL); POLYCHROMIC SLIGHT; TARGET CELLS SLIGHT
--- NOTE | 2017-12-18 08:26 | CP.CCUPN ---
<Teddy Koo - Last Filed: 12/18/17 09:54> CCU Subjective - Physician Review Subjective (Free Text): 12/18/17 08:22 Patient seen and examined. Patient's blood pressure is labile. Overnight the dopamine was turned off; however, she became hypotensive and needed it restarted. CCU Objective - Vital Signs / Intake & Output Vital Signs (Last 4 hours): Vital Signs Pulse Resp BP Pulse Ox 12/18/17 07:00 116 H 18 98 12/18/17 06:58 106 H 15 134/87 100 12/18/17 06:28 105 H 17 112/68 98 12/18/17 06:00 108 H 20 98 12/18/17 05:58 103/63 12/18/17 05:28 108 H 19 108/67 99 12/18/17 04:58 119/75 12/18/17 04:28 101 H 23 144/85 99 Intake and Output (Last 8hrs): Intake & Output 12/17/17 12/18/17 12/18/17 22:59 06:59 14:59 Intake Total 1035.8 572.6 105.9 Output Total 0 0 0 Balance 1035.8 572.6 105.9 Weight 100 lb 4.965 oz Intake: IV 32 253 0 Intake, IV Amount 103.8 169.6 105.9 Left Hand 3.8 69.6 105.9 Right Antecubital 100 100 Oral 200 150 Blood Product 650 Red Blood Cells Cpd As1 325 Lr Unit [id number] Red Blood Cells Cpd As1 325 Lr Unit [id number] Other 50 Red Blood Cells Cpd As1 50 Lr Unit [id number] Output: Urine 0 0 0 Urine, Voided 0 0 0 Other: # Bowel Movements 0 - Physical Exam Head: Positive for: Atraumatic, Normocephalic Pupils: Positive for: PERRL Extroacular Muscles: Positive for: EOMI Conjunctiva: Positive for: Normal Mouth: Positive for: Moist Mucous Membranes Respiratory/Chest: Positive for: Decreased Breath Sounds Cardiovascular: Positive for: Regular Rate and Rhythm, Normal S1, S2 Abdomen: Positive for: Normal Bowel Sounds. Negative for: Tenderness Back: Positive for: Other (sacral wound) Upper Extremity: Negative for: Edema Lower Extremity: Positive for: Other (multiple leg/foot ulcers) Neurological: Positive for: GCS=15 Skin: Positive for: Warm, Dry Psychiatric: Positive for: Alert, Oriented x 3 - Medications Active Medications: Active Medications Generic Name Dose Route Start Last Admin Trade Name Freq PRN Reason Stop Dose Admin Heparin Sodium (Porcine) 5,000 units 12/17/17 22:00 12/17/17 21:15 Heparin SC 5,000 units Q12H AUSTYN Administration Cefepime HCl 1 gm in 50 mls @ 100 mls/hr 12/17/17 11:45 12/17/17 23:52 Maxipime Iv 1 Gm Premix IVPB 100 mls/hr Q12H AUSTYN Administration Protocol Dopamine HCl/Dextrose 400 mg in 250 mls @ 3.912 mls/hr 12/17/17 12:26 07:25 Dopamine 400mg/250ml D5w IV 1 mcg/kg/min .Q24H PRN 1.956 mls/hr TITRATE PER MD ORDER Titration Protocol 2 MCG/KG/MIN Daptomycin 310 mg/ Sodium 100 mls @ 100 mls/hr 12/17/17 20:30 12/17/17 21:08 Chloride IV 12/27/17 20:31 100 mls/hr Q48H AUSTYN Administration Insulin Aspart 0 unit 12/17/17 16:30 12/18/17 08:15 Novolog SC 3 unit ACHS AUSTYN Administration Protocol Pneumococcal Polyvalent Vaccine 0.5 ml 12/19/17 10:00 Pneumovax 23 Vaccine IM 12/19/17 10:01 .ONCE ONE - Patient Studies Lab Studies: Microbiology Studies 12/17/17 12:30 Gram Stain - Final Buttock Lab Studies 12/18/17 12/18/17 12/18/17 Range/Units 08:02 04:59 04:59 WBC 24.6 H (4.8-10.8) K/uL RBC 4.01 (3.80-5.20) Mil/uL Hgb 10.7 L (11.0-16.0) g/dL Hct 32.1 L (34.0-47.0) % MCV 80.0 L (81.0-99.0) fL MCH 26.7 L (27.0-31.0) pg MCHC 33.3 (33.0-37.0) g/dL RDW 16.3 H (11.5-14.5) % Plt Count 375 (130-400) K/uL MPV 6.8 L (7.2-11.7) fL Neut % (Auto) 89.1 H (50.0-75.0) % Lymph % (Auto) 3.9 L (20.0-40.0) % [place] % (Auto) 6.3 (0.0-10.0) % Eos % (Auto) 0.2 (0.0-4.0) % Baso % (Auto) 0.5 (0.0-2.0) % Neut # (Auto) 21.9 H (1.8-7.0) K/uL Lymph # (Auto) 1.0 (1.0-4.3) K/uL [place] # (Auto) 1.6 H (0.0-0.8) K/uL Eos # (Auto) 0.1 (0.0-0.7) K/uL Baso # (Auto) 0.1 (0.0-0.2) K/uL Neutrophils % (Manual) 90 H (50-75) % Lymphocytes % (Manual) 5 L (20-40) % Monocytes % (Manual) 5 (0-10) % Nucleated RBC % 1 H (0-0) % Platelet Estimate Normal (NORMAL) Polychromasia Slight Hypochromasia (manual) Slight Anisocytosis (manual) Slight Microcytosis (manual) Target Cells Slight PT (9.7-12.2) SECONDS INR APTT (21-34) SECONDS pO2 (30-55) mm/Hg VBG pH (7.32-7.43) VBG pCO2 (40-60) mmHg VBG HCO3 mmol/L VBG Total CO2 (22-28) mmol/L VBG O2 Sat (Calc) (40-65) % VBG Base Excess (0.0-2.0) mmol/L VBG Potassium (3.6-5.2) mmol/L Glucose (65-105) mg/dl Lactate (0.7-2.1) mmol/L Crit Value Called To Crit Value Called By Crit Value Read Back Blood Gas Notified Time Sodium 143 (132-148) mmol/L Potassium 3.1 L (3.6-5.2) mmol/L Chloride 105 (98-107) mmol/L Carbon Dioxide 16 L (22-30) mmol/L Anion Gap 25 H (10-20) BUN 57 H (7-17) mg/dL Creatinine 5.6 H (0.7-1.2) mg/dL Est GFR ( Amer) 10 Est GFR (Non-Af Amer) 8 POC Glucose (mg/dL) 222 H (65-110) mg/dL Random Glucose 231 H (65-105) mg/dL Calcium 8.6 (8.6-10.4) mg/dl Phosphorus 3.4 (2.5-4.5) mg/dL Magnesium 2.1 (1.6-2.3) mg/dL Total Bilirubin 1.9 H (0.2-1.3) mg/dL AST 13 L (14-36) U/L ALT < 6 L (9-52) U/L Alkaline Phosphatase 211 H (38-126) U/L Total Creatine Kinase (30-135) U/L Troponin I (0.00-0.120) ng/mL NT-Pro-B Natriuret Pep (0-450) pg/mL Total Protein 10.0 H (6.3-8.3) g/dL Albumin 3.6 (3.5-5.0) g/dL Globulin 6.3 H (2.2-3.9) gm/dL Albumin/Globulin Ratio 0.6 L (1.0-2.1) Beta HCG, Quant mIU/ML Venous Blood Potassium (3.6-5.2) mmol/L Serum Ketones (NEGATIVE) Hep Bs Antigen (NEGATIVE) Blood Type Antibody Screen 12/18/17 12/17/17 12/17/17 Range/Units 04:59 22:09 22:09 WBC 23.0 H (4.8-10.8) K/uL RBC 3.93 (3.80-5.20) Mil/uL Hgb 10.7 L D (11.0-16.0) g/dL Hct 31.0 L (34.0-47.0) % MCV 79.0 L D (81.0-99.0) fL MCH 27.3 (27.0-31.0) pg MCHC 34.5 (33.0-37.0) g/dL RDW 16.7 H (11.5-14.5) % Plt Count 400 (130-400) K/uL MPV 7.1 L (7.2-11.7) fL Neut % (Auto) 89.7 H (50.0-75.0) % Lymph % (Auto) 4.1 L (20.0-40.0) % [place] % (Auto) 5.4 (0.0-10.0) % Eos % (Auto) 0.4 (0.0-4.0) % Baso % (Auto) 0.4 (0.0-2.0) % Neut # (Auto) 20.6 H (1.8-7.0) K/uL Lymph # (Auto) 1.0 (1.0-4.3) K/uL [place] # (Auto) 1.2 H (0.0-0.8) K/uL Eos # (Auto) 0.1 (0.0-0.7) K/uL Baso # (Auto) 0.1 (0.0-0.2) K/uL Neutrophils % (Manual) 89 H (50-75) % Lymphocytes % (Manual) 3 L (20-40) % Monocytes % (Manual) 8 (0-10) % Nucleated RBC % 2 H (0-0) % Platelet Estimate Normal (NORMAL) Polychromasia Hypochromasia (manual) Anisocytosis (manual) Slight Microcytosis (manual) Slight Target Cells PT (9.7-12.2) SECONDS INR APTT 32 (21-34) SECONDS pO2 (30-55) mm/Hg VBG pH (7.32-7.43) VBG pCO2 (40-60) mmHg VBG HCO3 mmol/L VBG Total CO2 (22-28) mmol/L VBG O2 Sat (Calc) (40-65) % VBG Base Excess (0.0-2.0) mmol/L VBG Potassium (3.6-5.2) mmol/L Glucose (65-105) mg/dl Lactate (0.7-2.1) mmol/L Crit Value Called To Crit Value Called By Crit Value Read Back Blood Gas Notified Time Sodium 143 (132-148) mmol/L Potassium 2.8 L (3.6-5.2) mmol/L Chloride 104 (98-107) mmol/L Carbon Dioxide 14 L (22-30) mmol/L Anion Gap 28 H (10-20) BUN 48 H (7-17) mg/dL Creatinine 5.4 H (0.7-1.2) mg/dL Est GFR ( Amer) 11 Est GFR (Non-Af Amer) 9 POC Glucose (mg/dL) (65-110) mg/dL Random Glucose 108 H (65-105) mg/dL Calcium 9.0 (8.6-10.4) mg/dl Phosphorus 2.2 L (2.5-4.5) mg/dL Magnesium 2.1 (1.6-2.3) mg/dL Total Bilirubin (0.2-1.3) mg/dL AST (14-36) U/L ALT (9-52) U/L Alkaline Phosphatase (38-126) U/L Total Creatine Kinase (30-135) U/L Troponin I (0.00-0.120) ng/mL NT-Pro-B Natriuret Pep (0-450) pg/mL Total Protein (6.3-8.3) g/dL Albumin (3.5-5.0) g/dL Globulin (2.2-3.9) gm/dL Albumin/Globulin Ratio (1.0-2.1) Beta HCG, Quant mIU/ML Venous Blood Potassium (3.6-5.2) mmol/L Serum Ketones (NEGATIVE) Hep Bs Antigen (NEGATIVE) Blood Type Antibody Screen 12/17/17 12/17/17 12/17/17 Range/Units 21:38 18:53 15:56 WBC (4.8-10.8) K/uL RBC (3.80-5.20) Mil/uL Hgb (11.0-16.0) g/dL Hct (34.0-47.0) % MCV (81.0-99.0) fL MCH (27.0-31.0) pg MCHC (33.0-37.0) g/dL RDW (11.5-14.5) % Plt Count (130-400) K/uL MPV (7.2-11.7) fL Neut % (Auto) (50.0-75.0) % Lymph % (Auto) (20.0-40.0) % [place] % (Auto) (0.0-10.0) % Eos % (Auto) (0.0-4.0) % Baso % (Auto) (0.0-2.0) % Neut # (Auto) (1.8-7.0) K/uL Lymph # (Auto) (1.0-4.3) K/uL [place] # (Auto) (0.0-0.8) K/uL Eos # (Auto) (0.0-0.7) K/uL Baso # (Auto) (0.0-0.2) K/uL Neutrophils % (Manual) (50-75) % Lymphocytes % (Manual) (20-40) % Monocytes % (Manual) (0-10) % Nucleated RBC % (0-0) % Platelet Estimate (NORMAL) Polychromasia Hypochromasia (manual) Anisocytosis (manual) Microcytosis (manual) Target Cells PT (9.7-12.2) SECONDS INR APTT (21-34) SECONDS pO2 (30-55) mm/Hg VBG pH (7.32-7.43) VBG pCO2 (40-60) mmHg VBG HCO3 mmol/L VBG Total CO2 (22-28) mmol/L VBG O2 Sat (Calc) (40-65) % VBG Base Excess (0.0-2.0) mmol/L VBG Potassium (3.6-5.2) mmol/L Glucose (65-105) mg/dl Lactate (0.7-2.1) mmol/L Crit Value Called To Crit Value Called By Crit Value Read Back Blood Gas Notified Time Sodium (132-148) mmol/L Potassium (3.6-5.2) mmol/L Chloride (98-107) mmol/L Carbon Dioxide (22-30) mmol/L Anion Gap (10-20) BUN (7-17) mg/dL Creatinine (0.7-1.2) mg/dL Est GFR ( Amer) Est GFR (Non-Af Amer) POC Glucose (mg/dL) 95 263 H (65-110) mg/dL Random Glucose (65-105) mg/dL Calcium (8.6-10.4) mg/dl Phosphorus (2.5-4.5) mg/dL Magnesium (1.6-2.3) mg/dL Total Bilirubin (0.2-1.3) mg/dL AST (14-36) U/L ALT (9-52) U/L Alkaline Phosphatase (38-126) U/L Total Creatine Kinase (30-135) U/L Troponin I (0.00-0.120) ng/mL NT-Pro-B Natriuret Pep (0-450) pg/mL Total Protein (6.3-8.3) g/dL Albumin (3.5-5.0) g/dL Globulin (2.2-3.9) gm/dL Albumin/Globulin Ratio (1.0-2.1) Beta HCG, Quant mIU/ML Venous Blood Potassium (3.6-5.2) mmol/L Serum Ketones (NEGATIVE) Hep Bs Antigen Negative (NEGATIVE) Blood Type Antibody Screen 12/17/17 12/17/17 12/17/17 Range/Units 13:53 11:18 11:01 WBC (4.8-10.8) K/uL RBC (3.80-5.20) Mil/uL Hgb (11.0-16.0) g/dL Hct (34.0-47.0) % MCV (81.0-99.0) fL MCH (27.0-31.0) pg MCHC (33.0-37.0) g/dL RDW (11.5-14.5) % Plt Count (130-400) K/uL MPV (7.2-11.7) fL Neut % (Auto) (50.0-75.0) % Lymph % (Auto) (20.0-40.0) % [place] % (Auto) (0.0-10.0) % Eos % (Auto) (0.0-4.0) % Baso % (Auto) (0.0-2.0) % Neut # (Auto) (1.8-7.0) K/uL Lymph # (Auto) (1.0-4.3) K/uL [place] # (Auto) (0.0-0.8) K/uL Eos # (Auto) (0.0-0.7) K/uL Baso # (Auto) (0.0-0.2) K/uL Neutrophils % (Manual) (50-75) % Lymphocytes % (Manual) (20-40) % Monocytes % (Manual) (0-10) % Nucleated RBC % (0-0) % Platelet Estimate (NORMAL) Polychromasia Hypochromasia (manual) Anisocytosis (manual) Microcytosis (manual) Target Cells PT 14.1 H (9.7-12.2) SECONDS INR 1.2 APTT 36 H (21-34) SECONDS pO2 75 H (30-55) mm/Hg VBG pH 6.98 L* (7.32-7.43) VBG pCO2 14 L* (40-60) mmHg VBG HCO3 3.8 mmol/L VBG Total CO2 3.7 L (22-28) mmol/L VBG O2 Sat (Calc) 96.6 H (40-65) % VBG Base Excess -26.6 L (0.0-2.0) mmol/L VBG Potassium 4.9 (3.6-5.2) mmol/L Glucose 308 H (65-105) mg/dl Lactate 1.4 (0.7-2.1) mmol/L Crit Value Called To Dr neff Crit Value Called By Mamadou arceo invasive manager Crit Value Read Back Y Blood Gas Notified Time 1122 Sodium 136.0 (132-148) mmol/L Potassium (3.6-5.2) mmol/L Chloride 109.0 H (98-107) mmol/L Carbon Dioxide (22-30) mmol/L Anion Gap (10-20) BUN (7-17) mg/dL Creatinine (0.7-1.2) mg/dL Est GFR ( Amer) Est GFR (Non-Af Amer) POC Glucose (mg/dL) (65-110) mg/dL Random Glucose (65-105) mg/dL Calcium (8.6-10.4) mg/dl Phosphorus (2.5-4.5) mg/dL Magnesium (1.6-2.3) mg/dL Total Bilirubin (0.2-1.3) mg/dL AST (14-36) U/L ALT (9-52) U/L Alkaline Phosphatase (38-126) U/L Total Creatine Kinase (30-135) U/L Troponin I (0.00-0.120) ng/mL NT-Pro-B Natriuret Pep (0-450) pg/mL Total Protein (6.3-8.3) g/dL Albumin (3.5-5.0) g/dL Globulin (2.2-3.9) gm/dL Albumin/Globulin Ratio (1.0-2.1) Beta HCG, Quant mIU/ML Venous Blood Potassium 4.9 (3.6-5.2) mmol/L Serum Ketones (NEGATIVE) Hep Bs Antigen (NEGATIVE) Blood Type B POSITIVE Antibody Screen Negative 12/17/17 12/17/17 12/17/17 Range/Units 11:01 11:01 10:16 WBC 24.0 H (4.8-10.8) K/uL RBC 2.82 L (3.80-5.20) Mil/uL Hgb 7.4 L (11.0-16.0) g/dL Hct 23.6 L (34.0-47.0) % MCV 83.6 (81.0-99.0) fL MCH 26.2 L (27.0-31.0) pg MCHC 31.3 L (33.0-37.0) g/dL RDW 17.6 H (11.5-14.5) % Plt Count 395 (130-400) K/uL MPV 7.4 (7.2-11.7) fL Neut % (Auto) 88.0 H (50.0-75.0) % Lymph % (Auto) 5.0 L (20.0-40.0) % [place] % (Auto) 6.4 (0.0-10.0) % Eos % (Auto) 0.2 (0.0-4.0) % Baso % (Auto) 0.4 (0.0-2.0) % Neut # (Auto) 21.1 H (1.8-7.0) K/uL Lymph # (Auto) 1.2 (1.0-4.3) K/uL [place] # (Auto) 1.5 H (0.0-0.8) K/uL Eos # (Auto) 0.1 (0.0-0.7) K/uL Baso # (Auto) 0.1 (0.0-0.2) K/uL Neutrophils % (Manual) 93 H (50-75) % Lymphocytes % (Manual) 4 L (20-40) % Monocytes % (Manual) 3 (0-10) % Nucleated RBC % (0-0) % Platelet Estimate Normal (NORMAL) Polychromasia Slight Hypochromasia (manual) Slight Anisocytosis (manual) Slight Microcytosis (manual) Target Cells PT (9.7-12.2) SECONDS INR APTT (21-34) SECONDS pO2 (30-55) mm/Hg VBG pH (7.32-7.43) VBG pCO2 (40-60) mmHg VBG HCO3 mmol/L VBG Total CO2 (22-28) mmol/L VBG O2 Sat (Calc) (40-65) % VBG Base Excess (0.0-2.0) mmol/L VBG Potassium (3.6-5.2) mmol/L Glucose (65-105) mg/dl Lactate (0.7-2.1) mmol/L Crit Value Called To Crit Value Called By Crit Value Read Back Blood Gas Notified Time Sodium 142 (132-148) mmol/L Potassium 5.1 (3.6-5.2) mmol/L Chloride 113 H (98-107) mmol/L Carbon Dioxide < 5 L* (22-30) mmol/L Anion Gap 29 H (10-20) BUN 132 H* (7-17) mg/dL Creatinine 11.8 H* D (0.7-1.2) mg/dL Est GFR ( Amer) 4 Est GFR (Non-Af Amer) 4 POC Glucose (mg/dL) 259 H (65-110) mg/dL Random Glucose 316 H (65-105) mg/dL Calcium 8.8 (8.6-10.4) mg/dl Phosphorus (2.5-4.5) mg/dL Magnesium 2.8 H (1.6-2.3) mg/dL Total Bilirubin 0.8 (0.2-1.3) mg/dL AST 14 D (14-36) U/L ALT < 6 L (9-52) U/L Alkaline Phosphatase 193 H D (38-126) U/L Total Creatine Kinase 41 (30-135) U/L Troponin I 0.0370 (0.00-0.120) ng/mL NT-Pro-B Natriuret Pep H (0-450) pg/mL Total Protein 9.6 H (6.3-8.3) g/dL Albumin 3.5 (3.5-5.0) g/dL Globulin 6.1 H (2.2-3.9) gm/dL Albumin/Globulin Ratio 0.6 L (1.0-2.1) Beta HCG, Quant < 2.39 mIU/ML Venous Blood Potassium (3.6-5.2) mmol/L Serum Ketones Negative (NEGATIVE) Hep Bs Antigen (NEGATIVE) Blood Type Antibody Screen Laboratory Results - last 24 hr 12/17/17 12/17/17 12/17/17 10:16 11:01 11:01 WBC 24.0 H RBC 2.82 L Hgb 7.4 L Hct 23.6 L MCV 83.6 MCH 26.2 L MCHC 31.3 L RDW 17.6 H Plt Count 395 MPV 7.4 Neut % (Auto) 88.0 H Lymph % (Auto) 5.0 L [place] % (Auto) 6.4 Eos % (Auto) 0.2 Baso % (Auto) 0.4 Neut # (Auto) 21.1 H Lymph # (Auto) 1.2 [place] # (Auto) 1.5 H Eos # (Auto) 0.1 Baso # (Auto) 0.1 Neutrophils % (Manual) 93 H Lymphocytes % (Manual) 4 L Monocytes % (Manual) 3 Nucleated RBC % Platelet Estimate Normal Polychromasia Slight Hypochromasia (manual) Slight Anisocytosis (manual) Slight Microcytosis (manual) Target Cells PT INR APTT pO2 VBG pH VBG pCO2 VBG HCO3 VBG Total CO2 VBG O2 Sat (Calc) VBG Base Excess VBG Potassium Glucose Lactate Crit Value Called To Crit Value Called By Crit Value Read Back Blood Gas Notified Time Sodium 142 Potassium 5.1 Chloride 113 H Carbon Dioxide < 5 L* Anion Gap 29 H BUN 132 H* Creatinine 11.8 H* D Est GFR ( Amer) 4 Est GFR (Non-Af Amer) 4 POC Glucose (mg/dL) 259 H Random Glucose 316 H Calcium 8.8 Phosphorus Magnesium 2.8 H Total Bilirubin 0.8 AST 14 D ALT < 6 L Alkaline Phosphatase 193 H D Total Creatine Kinase 41 Troponin I 0.0370 NT-Pro-B Natriuret Pep 88734 H Total Protein 9.6 H Albumin 3.5 Globulin 6.1 H Albumin/Globulin Ratio 0.6 L Beta HCG, Quant < 2.39 Venous Blood Potassium Serum Ketones Negative Hep Bs Antigen Blood Type Antibody Screen 12/17/17 12/17/17 12/17/17 11:01 11:18 13:53 WBC RBC Hgb Hct MCV MCH MCHC RDW Plt Count MPV Neut % (Auto) Lymph % (Auto) [place] % (Auto) Eos % (Auto) Baso % (Auto) Neut # (Auto) Lymph # (Auto) [place] # (Auto) Eos # (Auto) Baso # (Auto) Neutrophils % (Manual) Lymphocytes % (Manual) Monocytes % (Manual) Nucleated RBC % Platelet Estimate Polychromasia Hypochromasia (manual) Anisocytosis (manual) Microcytosis (manual) Target Cells PT 14.1 H INR 1.2 APTT 36 H pO2 75 H VBG pH 6.98 L* VBG pCO2 14 L* VBG HCO3 3.8 VBG Total CO2 3.7 L VBG O2 Sat (Calc) 96.6 H VBG Base Excess -26.6 L VBG Potassium 4.9 Glucose 308 H Lactate 1.4 Crit Value Called To Dr neff Crit Value Called By Mamadou arceo invasive manager Crit Value Read Back Y Blood Gas Notified Time 1122 Sodium 136.0 Potassium Chloride 109.0 H Carbon Dioxide Anion Gap BUN Creatinine Est GFR ( Amer) Est GFR (Non-Af Amer) POC Glucose (mg/dL) Random Glucose Calcium Phosphorus Magnesium Total Bilirubin AST ALT Alkaline Phosphatase Total Creatine Kinase Troponin I NT-Pro-B Natriuret Pep Total Protein Albumin Globulin Albumin/Globulin Ratio Beta HCG, Quant Venous Blood Potassium 4.9 Serum Ketones Hep Bs Antigen Blood Type B POSITIVE Antibody Screen Negative 12/17/17 12/17/17 12/17/17 15:56 18:53 21:38 WBC RBC Hgb Hct MCV MCH MCHC RDW Plt Count MPV Neut % (Auto) Lymph % (Auto) [place] % (Auto) Eos % (Auto) Baso % (Auto) Neut # (Auto) Lymph # (Auto) [place] # (Auto) Eos # (Auto) Baso # (Auto) Neutrophils % (Manual) Lymphocytes % (Manual) Monocytes % (Manual) Nucleated RBC % Platelet Estimate Polychromasia Hypochromasia (manual) Anisocytosis (manual) Microcytosis (manual) Target Cells PT INR APTT pO2 VBG pH VBG pCO2 VBG HCO3 VBG Total CO2 VBG O2 Sat (Calc) VBG Base Excess VBG Potassium Glucose Lactate Crit Value Called To Crit Value Called By Crit Value Read Back Blood Gas Notified Time Sodium Potassium Chloride Carbon Dioxide Anion Gap BUN Creatinine Est GFR ( Amer) Est GFR (Non-Af Amer) POC Glucose (mg/dL) 263 H 95 Random Glucose Calcium Phosphorus Magnesium Total Bilirubin AST ALT Alkaline Phosphatase Total Creatine Kinase Troponin I NT-Pro-B Natriuret Pep Total Protein Albumin Globulin Albumin/Globulin Ratio Beta HCG, Quant Venous Blood Potassium Serum Ketones Hep Bs Antigen Negative Blood Type Antibody Screen 12/17/17 12/17/17 12/18/17 22:09 22:09 04:59 WBC 23.0 H RBC 3.93 Hgb 10.7 L D Hct 31.0 L MCV 79.0 L D MCH 27.3 MCHC 34.5 RDW 16.7 H Plt Count 400 MPV 7.1 L Neut % (Auto) 89.7 H Lymph % (Auto) 4.1 L [place] % (Auto) 5.4 Eos % (Auto) 0.4 Baso % (Auto) 0.4 Neut # (Auto) 20.6 H Lymph # (Auto) 1.0 [place] # (Auto) 1.2 H Eos # (Auto) 0.1 Baso # (Auto) 0.1 Neutrophils % (Manual) 89 H Lymphocytes % (Manual) 3 L Monocytes % (Manual) 8 Nucleated RBC % 2 H Platelet Estimate Normal Polychromasia Hypochromasia (manual) Anisocytosis (manual) Slight Microcytosis (manual) Slight Target Cells PT INR APTT 32 pO2 VBG pH VBG pCO2 VBG HCO3 VBG Total CO2 VBG O2 Sat (Calc) VBG Base Excess VBG Potassium Glucose Lactate Crit Value Called To Crit Value Called By Crit Value Read Back Blood Gas Notified Time Sodium 143 Potassium 2.8 L Chloride 104 Carbon Dioxide 14 L Anion Gap 28 H BUN 48 H Creatinine 5.4 H Est GFR ( Amer) 11 Est GFR (Non-Af Amer) 9 POC Glucose (mg/dL) Random Glucose 108 H Calcium 9.0 Phosphorus 2.2 L Magnesium 2.1 Total Bilirubin AST ALT Alkaline Phosphatase Total Creatine Kinase Troponin I NT-Pro-B Natriuret Pep Total Protein Albumin Globulin Albumin/Globulin Ratio Beta HCG, Quant Venous Blood Potassium Serum Ketones Hep Bs Antigen Blood Type Antibody Screen 12/18/17 12/18/17 12/18/17 04:59 04:59 08:02 WBC 24.6 H RBC 4.01 Hgb 10.7 L Hct 32.1 L MCV 80.0 L MCH 26.7 L MCHC 33.3 RDW 16.3 H Plt Count 375 MPV 6.8 L Neut % (Auto) 89.1 H Lymph % (Auto) 3.9 L [place] % (Auto) 6.3 Eos % (Auto) 0.2 Baso % (Auto) 0.5 Neut # (Auto) 21.9 H Lymph # (Auto) 1.0 [place] # (Auto) 1.6 H Eos # (Auto) 0.1 Baso # (Auto) 0.1 Neutrophils % (Manual) 90 H Lymphocytes % (Manual) 5 L Monocytes % (Manual) 5 Nucleated RBC % 1 H Platelet Estimate Normal Polychromasia Slight Hypochromasia (manual) Slight Anisocytosis (manual) Slight Microcytosis (manual) Target Cells Slight PT INR APTT pO2 VBG pH VBG pCO2 VBG HCO3 VBG Total CO2 VBG O2 Sat (Calc) VBG Base Excess VBG Potassium Glucose Lactate Crit Value Called To Crit Value Called By Crit Value Read Back Blood Gas Notified Time Sodium 143 Potassium 3.1 L Chloride 105 Carbon Dioxide 16 L Anion Gap 25 H BUN 57 H Creatinine 5.6 H Est GFR ( Amer) 10 Est GFR (Non-Af Amer) 8 POC Glucose (mg/dL) 222 H Random Glucose 231 H Calcium 8.6 Phosphorus 3.4 Magnesium 2.1 Total Bilirubin 1.9 H AST 13 L ALT < 6 L Alkaline Phosphatase 211 H Total Creatine Kinase Troponin I NT-Pro-B Natriuret Pep Total Protein 10.0 H Albumin 3.6 Globulin 6.3 H Albumin/Globulin Ratio 0.6 L Beta HCG, Quant Venous Blood Potassium Serum Ketones Hep Bs Antigen Blood Type Antibody Screen EKG/Cardiology Studies: Cardiology / EKG Studies 12/17/17 10:19 EKG [ELECTROCARDIOGRAM] Stat Comment: Mode Of Transportation: PORTABLE Reason For Exam: Weakness Fingerstick Blood Sugar Results: 222 Critical Care Progress Note - Nutrition Nutrition: Nutrition Category Date Time Status Renal Diet [DIET] Diets 12/17/17 Dinner Active Assessment/Plan - Assessment and Plan (Free Text) Assessment: This is a 37 year old female with PMHx ESRD on HD (non-compliant), DM 1, HTN, Anemia, DVT who presented with general malaise. She has not had dialysis in 1 week. Admitted to the ICU in need of urgent dialysis and found with metabolic acidosis. The acidosis is improving after the session of hemodialysis. Neuro Awake, verbal Cardio Assessment: Hypotension Will wean off of Dopamine drip as tolerated Pulm Saturating well on room air GI Renal dialysis diet Endocrine Assessment: DM 1 Aspart ISS Renal Assessment: ESRD on HD, non-compliant with HD, Metabolic acidosis Nephro on consult Dialysis MWF ordered acidosis improving after dialysis Infectious Disease Assessment: Leg and sacral wounds Cefepime 1 gm Q12H Daptomycin 310 mg Q48H ID on consult Prophylaxis Heparin SC Q12H Protonix 40 mg IV daily Discussed with Dr. Smith <Dayo Smith S - Last Filed: 12/18/17 17:24> CCU Objective - Vital Signs / Intake & Output Vital Signs (Last 4 hours): Vital Signs Temp Pulse Resp BP 12/18/17 16:30 92 H 19 108/67 12/18/17 16:00 98.3 F 100 H 15 99/63 L 12/18/17 15:30 95 H 18 95/53 L 12/18/17 15:00 93 H 17 105/51 L 12/18/17 14:30 98 H 18 117/73 12/18/17 14:00 96 H 22 84/36 L 12/18/17 13:30 94 H 19 99/60 L Intake and Output (Last 8hrs): Intake & Output 12/18/17 12/18/17 12/18/17 06:59 14:59 22:59 Intake Total 572.6 795.9 0 Output Total 0 100 Balance 572.6 695.9 0 Weight 100 lb 4.965 oz Intake: IV 253 0 Intake, IV Amount 169.6 155.9 Left Hand 69.6 155.9 Right Antecubital 100 Oral 150 640 0 Output: Urine 0 0 Urine, Voided 0 0 Stool 100 Other: # Bowel Movements 0 1 - Medications Active Medications: Active Medications Generic Name Dose Route Start Last Admin Trade Name Freq PRN Reason Stop Dose Admin Dextrose 25 ml 12/18/17 09:56 Dextrose 50% Inj IV Q3H PRN Hypoglycemia Heparin Sodium (Porcine) 5,000 units 12/17/17 22:00 12/18/17 10:30 Heparin SC Not Given Q12H [facility] Cefepime HCl 1 gm in 50 mls @ 100 mls/hr 12/17/17 11:45 12/18/17 11:36 Maxipime Iv 1 Gm Premix IVPB 100 mls/hr Q12H [facility] Administration Protocol Dopamine HCl/Dextrose 400 mg in 250 mls @ 3.912 mls/hr 12/17/17 12:26 09:30 Dopamine 400mg/250ml D5w IV 0 mcg/kg/min .Q24H PRN 0 mls/hr TITRATE PER MD ORDER Titration Protocol 2 MCG/KG/MIN Daptomycin 310 mg/ Sodium 100 mls @ 100 mls/hr 12/17/17 20:30 12/17/17 21:08 Chloride IV 12/27/17 20:31 100 mls/hr Q48H [facility] Administration Insulin Aspart 0 unit 12/18/17 09:55 12/18/17 16:48 Novolog SC 4 unit ACHS [facility] Administration Protocol Pneumococcal Polyvalent Vaccine 0.5 ml 12/19/17 10:00 Pneumovax 23 Vaccine IM 12/19/17 10:01 .ONCE ONE - Patient Studies Lab Studies: Microbiology Studies 12/17/17 15:00 MRSA Culture (Admit) - Final Nose MRSA NOT DETECTED 12/17/17 12:30 Gram Stain - Final Buttock Wound Culture - Preliminary Gram Negative Hiram Beta Hemolytic Strep Group B Lab Studies 12/18/17 12/18/17 12/18/17 Range/Units 16:30 12:08 11:06 WBC (4.8-10.8) K/uL RBC (3.80-5.20) Mil/uL Hgb (11.0-16.0) g/dL Hct (34.0-47.0) % MCV (81.0-99.0) fL MCH (27.0-31.0) pg MCHC (33.0-37.0) g/dL RDW (11.5-14.5) % Plt Count (130-400) K/uL MPV (7.2-11.7) fL Neut % (Auto) (50.0-75.0) % Lymph % (Auto) (20.0-40.0) % [place] % (Auto) (0.0-10.0) % Eos % (Auto) (0.0-4.0) % Baso % (Auto) (0.0-2.0) % Neut # (Auto) (1.8-7.0) K/uL Lymph # (Auto) (1.0-4.3) K/uL [place] # (Auto) (0.0-0.8) K/uL Eos # (Auto) (0.0-0.7) K/uL Baso # (Auto) (0.0-0.2) K/uL Neutrophils % (Manual) (50-75) % Lymphocytes % (Manual) (20-40) % Monocytes % (Manual) (0-10) % Nucleated RBC % (0-0) % Platelet Estimate (NORMAL) Polychromasia Hypochromasia (manual) Anisocytosis (manual) Microcytosis (manual) Target Cells APTT (21-34) SECONDS Sodium (132-148) mmol/L Potassium (3.6-5.2) mmol/L Chloride (98-107) mmol/L Carbon Dioxide (22-30) mmol/L Anion Gap (10-20) BUN (7-17) mg/dL Creatinine (0.7-1.2) mg/dL Est GFR ( Amer) Est GFR (Non-Af Amer) POC Glucose (mg/dL) 200 H 153 H (65-110) mg/dL Random Glucose (65-105) mg/dL Calcium (8.6-10.4) mg/dl Phosphorus (2.5-4.5) mg/dL Magnesium (1.6-2.3) mg/dL Total Bilirubin (0.2-1.3) mg/dL AST (14-36) U/L ALT (9-52) U/L Alkaline Phosphatase (38-126) U/L Total Protein (6.3-8.3) g/dL Albumin (3.5-5.0) g/dL Globulin (2.2-3.9) gm/dL Albumin/Globulin Ratio (1.0-2.1) Procalcitonin (0.19-0.49) NG/ML C. difficile Ag & Toxin Negative (NEGATIVE) Hep Bs Antigen (NEGATIVE) Blood Type Antibody Screen 12/18/17 12/18/17 12/18/17 Range/Units 09:57 08:02 04:59 WBC (4.8-10.8) K/uL RBC (3.80-5.20) Mil/uL Hgb (11.0-16.0) g/dL Hct (34.0-47.0) % MCV (81.0-99.0) fL MCH (27.0-31.0) pg MCHC (33.0-37.0) g/dL RDW (11.5-14.5) % Plt Count (130-400) K/uL MPV (7.2-11.7) fL Neut % (Auto) (50.0-75.0) % Lymph % (Auto) (20.0-40.0) % [place] % (Auto) (0.0-10.0) % Eos % (Auto) (0.0-4.0) % Baso % (Auto) (0.0-2.0) % Neut # (Auto) (1.8-7.0) K/uL Lymph # (Auto) (1.0-4.3) K/uL [place] # (Auto) (0.0-0.8) K/uL Eos # (Auto) (0.0-0.7) K/uL Baso # (Auto) (0.0-0.2) K/uL Neutrophils % (Manual) (50-75) % Lymphocytes % (Manual) (20-40) % Monocytes % (Manual) (0-10) % Nucleated RBC % (0-0) % Platelet Estimate (NORMAL) Polychromasia Hypochromasia (manual) Anisocytosis (manual) Microcytosis (manual) Target Cells APTT (21-34) SECONDS Sodium 143 (132-148) mmol/L Potassium 3.1 L (3.6-5.2) mmol/L Chloride 105 (98-107) mmol/L Carbon Dioxide 16 L (22-30) mmol/L Anion Gap 25 H (10-20) BUN 57 H (7-17) mg/dL Creatinine 5.6 H (0.7-1.2) mg/dL Est GFR ( Amer) 10 Est GFR (Non-Af Amer) 8 POC Glucose (mg/dL) 222 H (65-110) mg/dL Random Glucose 231 H (65-105) mg/dL Calcium 8.6 (8.6-10.4) mg/dl Phosphorus 3.4 (2.5-4.5) mg/dL Magnesium 2.1 (1.6-2.3) mg/dL Total Bilirubin 1.9 H (0.2-1.3) mg/dL AST 13 L (14-36) U/L ALT < 6 L (9-52) U/L Alkaline Phosphatase 211 H (38-126) U/L Total Protein 10.0 H (6.3-8.3) g/dL Albumin 3.6 (3.5-5.0) g/dL Globulin 6.3 H (2.2-3.9) gm/dL Albumin/Globulin Ratio 0.6 L (1.0-2.1) Procalcitonin 5.71 H (0.19-0.49) NG/ML C. difficile Ag & Toxin (NEGATIVE) Hep Bs Antigen (NEGATIVE) Blood Type Antibody Screen 12/18/17 12/18/17 12/17/17 Range/Units 04:59 04:59 22:09 WBC 24.6 H (4.8-10.8) K/uL RBC 4.01 (3.80-5.20) Mil/uL Hgb 10.7 L (11.0-16.0) g/dL Hct 32.1 L (34.0-47.0) % MCV 80.0 L (81.0-99.0) fL MCH 26.7 L (27.0-31.0) pg MCHC 33.3 (33.0-37.0) g/dL RDW 16.3 H (11.5-14.5) % Plt Count 375 (130-400) K/uL MPV 6.8 L (7.2-11.7) fL Neut % (Auto) 89.1 H (50.0-75.0) % Lymph % (Auto) 3.9 L (20.0-40.0) % [place] % (Auto) 6.3 (0.0-10.0) % Eos % (Auto) 0.2 (0.0-4.0) % Baso % (Auto) 0.5 (0.0-2.0) % Neut # (Auto) 21.9 H (1.8-7.0) K/uL Lymph # (Auto) 1.0 (1.0-4.3) K/uL [place] # (Auto) 1.6 H (0.0-0.8) K/uL Eos # (Auto) 0.1 (0.0-0.7) K/uL Baso # (Auto) 0.1 (0.0-0.2) K/uL Neutrophils % (Manual) 90 H (50-75) % Lymphocytes % (Manual) 5 L (20-40) % Monocytes % (Manual) 5 (0-10) % Nucleated RBC % 1 H (0-0) % Platelet Estimate Normal (NORMAL) Polychromasia Slight Hypochromasia (manual) Slight Anisocytosis (manual) Slight Microcytosis (manual) Target Cells Slight APTT 32 (21-34) SECONDS Sodium 143 (132-148) mmol/L Potassium 2.8 L (3.6-5.2) mmol/L Chloride 104 (98-107) mmol/L Carbon Dioxide 14 L (22-30) mmol/L Anion Gap 28 H (10-20) BUN 48 H (7-17) mg/dL Creatinine 5.4 H (0.7-1.2) mg/dL Est GFR ( Amer) 11 Est GFR (Non-Af Amer) 9 POC Glucose (mg/dL) (65-110) mg/dL Random Glucose 108 H (65-105) mg/dL Calcium 9.0 (8.6-10.4) mg/dl Phosphorus 2.2 L (2.5-4.5) mg/dL Magnesium 2.1 (1.6-2.3) mg/dL Total Bilirubin (0.2-1.3) mg/dL AST (14-36) U/L ALT (9-52) U/L Alkaline Phosphatase (38-126) U/L Total Protein (6.3-8.3) g/dL Albumin (3.5-5.0) g/dL Globulin (2.2-3.9) gm/dL Albumin/Globulin Ratio (1.0-2.1) Procalcitonin (0.19-0.49) NG/ML C. difficile Ag & Toxin (NEGATIVE) Hep Bs Antigen (NEGATIVE) Blood Type Antibody Screen 12/17/17 12/17/17 12/17/17 Range/Units 22:09 21:38 18:53 WBC 23.0 H (4.8-10.8) K/uL RBC 3.93 (3.80-5.20) Mil/uL Hgb 10.7 L D (11.0-16.0) g/dL Hct 31.0 L (34.0-47.0) % MCV 79.0 L D (81.0-99.0) fL MCH 27.3 (27.0-31.0) pg MCHC 34.5 (33.0-37.0) g/dL RDW 16.7 H (11.5-14.5) % Plt Count 400 (130-400) K/uL MPV 7.1 L (7.2-11.7) fL Neut % (Auto) 89.7 H (50.0-75.0) % Lymph % (Auto) 4.1 L (20.0-40.0) % [place] % (Auto) 5.4 (0.0-10.0) % Eos % (Auto) 0.4 (0.0-4.0) % Baso % (Auto) 0.4 (0.0-2.0) % Neut # (Auto) 20.6 H (1.8-7.0) K/uL Lymph # (Auto) 1.0 (1.0-4.3) K/uL [place] # (Auto) 1.2 H (0.0-0.8) K/uL Eos # (Auto) 0.1 (0.0-0.7) K/uL Baso # (Auto) 0.1 (0.0-0.2) K/uL Neutrophils % (Manual) 89 H (50-75) % Lymphocytes % (Manual) 3 L (20-40) % Monocytes % (Manual) 8 (0-10) % Nucleated RBC % 2 H (0-0) % Platelet Estimate Normal (NORMAL) Polychromasia Hypochromasia (manual) Anisocytosis (manual) Slight Microcytosis (manual) Slight Target Cells APTT (21-34) SECONDS Sodium (132-148) mmol/L Potassium (3.6-5.2) mmol/L Chloride (98-107) mmol/L Carbon Dioxide (22-30) mmol/L Anion Gap (10-20) BUN (7-17) mg/dL Creatinine (0.7-1.2) mg/dL Est GFR ( Amer) Est GFR (Non-Af Amer) POC Glucose (mg/dL) 95 (65-110) mg/dL Random Glucose (65-105) mg/dL Calcium (8.6-10.4) mg/dl Phosphorus (2.5-4.5) mg/dL Magnesium (1.6-2.3) mg/dL Total Bilirubin (0.2-1.3) mg/dL AST (14-36) U/L ALT (9-52) U/L Alkaline Phosphatase (38-126) U/L Total Protein (6.3-8.3) g/dL Albumin (3.5-5.0) g/dL Globulin (2.2-3.9) gm/dL Albumin/Globulin Ratio (1.0-2.1) Procalcitonin (0.19-0.49) NG/ML C. difficile Ag & Toxin (NEGATIVE) Hep Bs Antigen Negative (NEGATIVE) Blood Type Antibody Screen 12/17/17 Range/Units 13:53 WBC (4.8-10.8) K/uL RBC (3.80-5.20) Mil/uL Hgb (11.0-16.0) g/dL Hct (34.0-47.0) % MCV (81.0-99.0) fL MCH (27.0-31.0) pg MCHC (33.0-37.0) g/dL RDW (11.5-14.5) % Plt Count (130-400) K/uL MPV (7.2-11.7) fL Neut % (Auto) (50.0-75.0) % Lymph % (Auto) (20.0-40.0) % [place] % (Auto) (0.0-10.0) % Eos % (Auto) (0.0-4.0) % Baso % (Auto) (0.0-2.0) % Neut # (Auto) (1.8-7.0) K/uL Lymph # (Auto) (1.0-4.3) K/uL [place] # (Auto) (0.0-0.8) K/uL Eos # (Auto) (0.0-0.7) K/uL Baso # (Auto) (0.0-0.2) K/uL Neutrophils % (Manual) (50-75) % Lymphocytes % (Manual) (20-40) % Monocytes % (Manual) (0-10) % Nucleated RBC % (0-0) % Platelet Estimate (NORMAL) Polychromasia Hypochromasia (manual) Anisocytosis (manual) Microcytosis (manual) Target Cells APTT (21-34) SECONDS Sodium (132-148) mmol/L Potassium (3.6-5.2) mmol/L Chloride (98-107) mmol/L Carbon Dioxide (22-30) mmol/L Anion Gap (10-20) BUN (7-17) mg/dL Creatinine (0.7-1.2) mg/dL Est GFR ( Amer) Est GFR (Non-Af Amer) POC Glucose (mg/dL) (65-110) mg/dL Random Glucose (65-105) mg/dL Calcium (8.6-10.4) mg/dl Phosphorus (2.5-4.5) mg/dL Magnesium (1.6-2.3) mg/dL Total Bilirubin (0.2-1.3) mg/dL AST (14-36) U/L ALT (9-52) U/L Alkaline Phosphatase (38-126) U/L Total Protein (6.3-8.3) g/dL Albumin (3.5-5.0) g/dL Globulin (2.2-3.9) gm/dL Albumin/Globulin Ratio (1.0-2.1) Procalcitonin (0.19-0.49) NG/ML C. difficile Ag & Toxin (NEGATIVE) Hep Bs Antigen (NEGATIVE) Blood Type B POSITIVE Antibody Screen Negative Laboratory Results - last 24 hr 12/17/17 12/17/17 12/17/17 13:53 18:53 21:38 WBC RBC Hgb Hct MCV MCH MCHC RDW Plt Count MPV Neut % (Auto) Lymph % (Auto) [place] % (Auto) Eos % (Auto) Baso % (Auto) Neut # (Auto) Lymph # (Auto) [place] # (Auto) Eos # (Auto) Baso # (Auto) Neutrophils % (Manual) Lymphocytes % (Manual) Monocytes % (Manual) Nucleated RBC % Platelet Estimate Polychromasia Hypochromasia (manual) Anisocytosis (manual) Microcytosis (manual) Target Cells APTT Sodium Potassium Chloride Carbon Dioxide Anion Gap BUN Creatinine Est GFR ( Amer) Est GFR (Non-Af Amer) POC Glucose (mg/dL) 95 Random Glucose Calcium Phosphorus Magnesium Total Bilirubin AST ALT Alkaline Phosphatase Total Protein Albumin Globulin Albumin/Globulin Ratio Procalcitonin C. difficile Ag & Toxin Hep Bs Antigen Negative Blood Type B POSITIVE Antibody Screen Negative 12/17/17 12/17/17 12/18/17 22:09 22:09 04:59 WBC 23.0 H RBC 3.93 Hgb 10.7 L D Hct 31.0 L MCV 79.0 L D MCH 27.3 MCHC 34.5 RDW 16.7 H Plt Count 400 MPV 7.1 L Neut % (Auto) 89.7 H Lymph % (Auto) 4.1 L [place] % (Auto) 5.4 Eos % (Auto) 0.4 Baso % (Auto) 0.4 Neut # (Auto) 20.6 H Lymph # (Auto) 1.0 [place] # (Auto) 1.2 H Eos # (Auto) 0.1 Baso # (Auto) 0.1 Neutrophils % (Manual) 89 H Lymphocytes % (Manual) 3 L Monocytes % (Manual) 8 Nucleated RBC % 2 H Platelet Estimate Normal Polychromasia Hypochromasia (manual) Anisocytosis (manual) Slight Microcytosis (manual) Slight Target Cells APTT 32 Sodium 143 Potassium 2.8 L Chloride 104 Carbon Dioxide 14 L Anion Gap 28 H BUN 48 H Creatinine 5.4 H Est GFR ( Amer) 11 Est GFR (Non-Af Amer) 9 POC Glucose (mg/dL) Random Glucose 108 H Calcium 9.0 Phosphorus 2.2 L Magnesium 2.1 Total Bilirubin AST ALT Alkaline Phosphatase Total Protein Albumin Globulin Albumin/Globulin Ratio Procalcitonin C. difficile Ag & Toxin Hep Bs Antigen Blood Type Antibody Screen 12/18/17 12/18/17 12/18/17 04:59 04:59 08:02 WBC 24.6 H RBC 4.01 Hgb 10.7 L Hct 32.1 L MCV 80.0 L MCH 26.7 L MCHC 33.3 RDW 16.3 H Plt Count 375 MPV 6.8 L Neut % (Auto) 89.1 H Lymph % (Auto) 3.9 L [place] % (Auto) 6.3 Eos % (Auto) 0.2 Baso % (Auto) 0.5 Neut # (Auto) 21.9 H Lymph # (Auto) 1.0 [place] # (Auto) 1.6 H Eos # (Auto) 0.1 Baso # (Auto) 0.1 Neutrophils % (Manual) 90 H Lymphocytes % (Manual) 5 L Monocytes % (Manual) 5 Nucleated RBC % 1 H Platelet Estimate Normal Polychromasia Slight Hypochromasia (manual) Slight Anisocytosis (manual) Slight Microcytosis (manual) Target Cells Slight APTT Sodium 143 Potassium 3.1 L Chloride 105 Carbon Dioxide 16 L Anion Gap 25 H BUN 57 H Creatinine 5.6 H Est GFR ( Amer) 10 Est GFR (Non-Af Amer) 8 POC Glucose (mg/dL) 222 H Random Glucose 231 H Calcium 8.6 Phosphorus 3.4 Magnesium 2.1 Total Bilirubin 1.9 H AST 13 L ALT < 6 L Alkaline Phosphatase 211 H Total Protein 10.0 H Albumin 3.6 Globulin 6.3 H Albumin/Globulin Ratio 0.6 L Procalcitonin C. difficile Ag & Toxin Hep Bs Antigen Blood Type Antibody Screen 12/18/17 12/18/17 12/18/17 09:57 11:06 12:08 WBC RBC Hgb Hct MCV MCH MCHC RDW Plt Count MPV Neut % (Auto) Lymph % (Auto) [place] % (Auto) Eos % (Auto) Baso % (Auto) Neut # (Auto) Lymph # (Auto) [place] # (Auto) Eos # (Auto) Baso # (Auto) Neutrophils % (Manual) Lymphocytes % (Manual) Monocytes % (Manual) Nucleated RBC % Platelet Estimate Polychromasia Hypochromasia (manual) Anisocytosis (manual) Microcytosis (manual) Target Cells APTT Sodium Potassium Chloride Carbon Dioxide Anion Gap BUN Creatinine Est GFR ( Amer) Est GFR (Non-Af Amer) POC Glucose (mg/dL) 153 H Random Glucose Calcium Phosphorus Magnesium Total Bilirubin AST ALT Alkaline Phosphatase Total Protein Albumin Globulin Albumin/Globulin Ratio Procalcitonin 5.71 H C. difficile Ag & Toxin Negative Hep Bs Antigen Blood Type Antibody Screen 12/18/17 16:30 WBC RBC Hgb Hct MCV MCH MCHC RDW Plt Count MPV Neut % (Auto) Lymph % (Auto) [place] % (Auto) Eos % (Auto) Baso % (Auto) Neut # (Auto) Lymph # (Auto) [place] # (Auto) Eos # (Auto) Baso # (Auto) Neutrophils % (Manual) Lymphocytes % (Manual) Monocytes % (Manual) Nucleated RBC % Platelet Estimate Polychromasia Hypochromasia (manual) Anisocytosis (manual) Microcytosis (manual) Target Cells APTT Sodium Potassium Chloride Carbon Dioxide Anion Gap BUN Creatinine Est GFR ( Amer) Est GFR (Non-Af Amer) POC Glucose (mg/dL) 200 H Random Glucose Calcium Phosphorus Magnesium Total Bilirubin AST ALT Alkaline Phosphatase Total Protein Albumin Globulin Albumin/Globulin Ratio Procalcitonin C. difficile Ag & Toxin Hep Bs Antigen Blood Type Antibody Screen Critical Care Progress Note - Nutrition Nutrition: Nutrition Category Date Time Status Renal Diet [DIET] Diets 12/17/17 Dinner Active Attending/Attestation - Attestation I have personally seen and examined this patient.: Yes I have fully participated in the care of the patient.: Yes I have reviewed all pertinent clinical information: Yes Notes (Text): 12/18/17 17:23 patient seen and examined in the intensive care unit. 37-year-old female with end-stage renal disease admitted with severe metabolic acidosis after she missed 1 week of dialysis Acidosis improving Continue IV antibiotics for leg ulcers Follow-up culture and sensitivity Continue hemodialysis Taper off dopamine as tolerated
--- NOTE | 2017-12-18 10:15 | RAD ---
PROCEDURE: Radiographs of the Lumbar Spine. HISTORY: r/o osteomylitis COMPARISON: No prior. FINDINGS: BONES: Normal alignment. No listhesis. No fracture. DISC SPACES: Unremarkable. OTHER FINDINGS: None. IMPRESSION: Unremarkable radiographs of the lumbar spine.
--- NOTE | 2017-12-18 10:58 | CP.PCM.PN ---
Subjective - Date & Time of Evaluation Date of Evaluation: 12/18/17 Time of Evaluation: 10:55 - Subjective Subjective: seen and examined in icu denies any feveres/chills/sob/v/n/d/dizziness/chestpain on iv antibiotics, dopamine being weaned off pt reports having permcath in since may 2017. hd yesterday Objective - Vital Signs/Intake and Output Vital Signs (last 24 hours): Temp Pulse Resp BP Pulse Ox 98.4 F 106 H 18 128/84 98 12/18/17 08:00 12/18/17 09:40 12/18/17 09:40 12/18/17 09:40 12/18/17 09:40 Intake and Output: 12/18/17 12/18/17 06:59 18:59 Intake Total 874.6 525.9 Output Total 0 0 Balance 874.6 525.9 - Medications Medications: Current Medications Dextrose (Dextrose 50% Inj) 25 ml IV Q3H PRN PRN Reason: Hypoglycemia Heparin Sodium (Porcine) (Heparin) 5,000 units SC Q12H [facility] Last Admin: 12/17/17 21:15 Dose: 5,000 units Cefepime HCl (Maxipime Iv 1 Gm Premix) 1 gm in 50 mls @ 100 mls/hr IVPB Q12H [facility] PRN Reason: Protocol Last Admin: 12/17/17 23:52 Dose: 100 mls/hr Dopamine HCl/Dextrose (Dopamine 400mg/250ml D5w) 400 mg in 250 mls @ 3.912 mls/ hr IV .Q24H PRN; Protocol; 2 MCG/KG/MIN PRN Reason: TITRATE PER MD ORDER Last Titration: 12/18/17 07:25 Dose: 1 mcg/kg/min, 1.956 mls/hr Daptomycin 310 mg/ Sodium (Chloride) 100 mls @ 100 mls/hr IV Q48H [facility] Stop: 12/27/17 20:31 Last Admin: 12/17/17 21:08 Dose: 100 mls/hr Insulin Aspart (Novolog) 0 unit SC ACHS [facility] PRN Reason: Protocol Pneumococcal Polyvalent Vaccine (Pneumovax 23 Vaccine) 0.5 ml IM .ONCE ONE Stop: 12/19/17 10:01 - Labs Labs: 12/18/17 04:59 12/18/17 04:59 PT 14.1 SECONDS (9.7-12.2) H 12/17/17 11:01 INR 1.2 12/17/17 11:01 APTT 32 SECONDS (21-34) 12/18/17 04:59 - Constitutional Appears: Older Than Stated Age, Cachectic, Chronically Ill - Head Exam Head Exam: NORMAL INSPECTION, NORMOCEPHALIC - Eye Exam Eye Exam: Normal appearance, PERRL Pupil Exam: PERRL - ENT Exam ENT Exam: Mucous Membranes Dry - Neck Exam Neck Exam: Full ROM (rt chest permcath,), Normal Inspection - Respiratory Exam Respiratory Exam: Clear to Ausculation Bilateral, NORMAL BREATHING PATTERN - Cardiovascular Exam Cardiovascular Exam: REGULAR RHYTHM, RRR - GI/Abdominal Exam GI & Abdominal Exam: Soft, Normal Bowel Sounds - Extremities Exam Extremities Exam: Full ROM, Normal Inspection - Neurological Exam Neurological Exam: Alert, Awake, Oriented x3 - Psychiatric Exam Psychiatric exam: Normal Affect, Normal Mood - Skin Skin Exam: Dry, Intact Assessment and Plan (1) Decubitus ulcers Status: Acute (2) ESRD (end stage renal disease) Status: Acute (3) Metabolic acidosis Status: Acute (4) Type 2 diabetes mellitus with diabetic nephropathy Status: Acute - Assessment and Plan (Free Text) Assessment: r/o cathetr related infection, pending cultures antibiotics per ID wound care hd tomorrow 3K bath
[2017-12-18] MEDS: Cefepime IV 1 gm in Dextrose 1 GM/50 ML BAG IVPB SCH ×2 (11:36→23:03)
--- NOTE | 2017-12-18 14:04 | CP.PCM.PN ---
Subjective - Date & Time of Evaluation Date of Evaluation: 12/18/17 Time of Evaluation: 14:03 - Subjective Subjective: AFEBRILE BP , OFF DOPAMINE WBS 24 K X RAY POSSIBLE OM OF SPINE GEN CACHEXIA IV AB Objective - Vital Signs/Intake and Output Vital Signs (last 24 hours): Temp Pulse Resp BP Pulse Ox 98.3 F 100 H 19 132/83 100 12/18/17 13:00 12/18/17 13:01 12/18/17 13:01 12/18/17 13:01 12/18/17 12:30 Intake and Output: 12/18/17 12/18/17 11:59 23:59 Intake Total 1048.5 270 Output Total 100 0 Balance 948.5 270 - Medications Medications: Current Medications Dextrose (Dextrose 50% Inj) 25 ml IV Q3H PRN PRN Reason: Hypoglycemia Heparin Sodium (Porcine) (Heparin) 5,000 units SC Q12H [facility] Last Admin: 12/18/17 10:30 Dose: Not Given Cefepime HCl (Maxipime Iv 1 Gm Premix) 1 gm in 50 mls @ 100 mls/hr IVPB Q12H [facility] PRN Reason: Protocol Last Admin: 12/18/17 11:36 Dose: 100 mls/hr Dopamine HCl/Dextrose (Dopamine 400mg/250ml D5w) 400 mg in 250 mls @ 3.912 mls/ hr IV .Q24H PRN; Protocol; 2 MCG/KG/MIN PRN Reason: TITRATE PER MD ORDER Last Titration: 12/18/17 07:25 Dose: 1 mcg/kg/min, 1.956 mls/hr Daptomycin 310 mg/ Sodium (Chloride) 100 mls @ 100 mls/hr IV Q48H [facility] Stop: 12/27/17 20:31 Last Admin: 12/17/17 21:08 Dose: 100 mls/hr Insulin Aspart (Novolog) 0 unit SC ACHS [facility] PRN Reason: Protocol Last Admin: 12/18/17 13:06 Dose: 2 unit Pneumococcal Polyvalent Vaccine (Pneumovax 23 Vaccine) 0.5 ml IM .ONCE ONE Stop: 12/19/17 10:01 - Labs Labs: 12/18/17 04:59 12/18/17 04:59 PT 14.1 SECONDS (9.7-12.2) H 12/17/17 11:01 INR 1.2 12/17/17 11:01 APTT 32 SECONDS (21-34) 12/18/17 04:59
--- NOTE | 2017-12-18 14:59 | CARD ---
APPROVED REPORT EKG Measurement Heart [id number] <Conclusion> Normal sinus rhythm Normal ECG
--- NOTE | 2017-12-18 23:47 | CP.PCM.PN ---
Subjective - Date & Time of Evaluation Date of Evaluation: 12/18/17 Time of Evaluation: 23:47 - Subjective Subjective: AFEBRILE, AWAKE. BP -LABILE. PT RESTARTED ON DOPAMINE. WEAK/ CAHECTIC TACHYCARDIA AT TIMES. XRAYS L-SACRAL SPINE -VE OSSEOUS CHANGES. BUTTOCK CULTURES +VE GRPB BETA HEMOLYTIC STREPT/ & GNR Objective - Vital Signs/Intake and Output Vital Signs (last 24 hours): Temp Pulse Resp BP Pulse Ox 98.3 F 91 H 20 127/82 100 12/18/17 20:00 12/18/17 22:00 12/18/17 22:00 12/18/17 22:00 12/18/17 12:30 Intake and Output: 12/18/17 12/19/17 18:59 06:59 Intake Total 955.9 150 Output Total 280 0 Balance 675.9 150 - Medications Medications: Current Medications Dextrose (Dextrose 50% Inj) 25 ml IV Q3H PRN PRN Reason: Hypoglycemia Heparin Sodium (Porcine) (Heparin) 5,000 units SC Q12H [facility] Last Admin: 12/18/17 21:30 Dose: Not Given Cefepime HCl (Maxipime Iv 1 Gm Premix) 1 gm in 50 mls @ 100 mls/hr IVPB Q12H [facility] PRN Reason: Protocol Last Admin: 12/18/17 23:03 Dose: 100 mls/hr Dopamine HCl/Dextrose (Dopamine 400mg/250ml D5w) 400 mg in 250 mls @ 3.912 mls/ hr IV .Q24H PRN; Protocol; 2 MCG/KG/MIN PRN Reason: TITRATE PER MD ORDER Last Titration: 12/18/17 09:30 Dose: 0 mcg/kg/min, 0 mls/hr Daptomycin 310 mg/ Sodium (Chloride) 100 mls @ 100 mls/hr IV Q48H [facility] Stop: 12/27/17 20:31 Last Admin: 12/17/17 21:08 Dose: 100 mls/hr Insulin Aspart (Novolog) 0 unit SC ACHS [facility] PRN Reason: Protocol Last Admin: 12/18/17 21:30 Dose: Not Given Pneumococcal Polyvalent Vaccine (Pneumovax 23 Vaccine) 0.5 ml IM .ONCE ONE Stop: 12/19/17 10:01 - Labs Labs: 12/18/17 04:59 12/18/17 04:59 PT 14.1 SECONDS (9.7-12.2) H 12/17/17 11:01 INR 1.2 12/17/17 11:01 APTT 32 SECONDS (21-34) 12/18/17 04:59 - Constitutional Appears: No Acute Distress, Cachectic, Chronically Ill - Head Exam Head Exam: NORMAL INSPECTION - Eye Exam Eye Exam: EOMI, PERRL. absent: Scleral icterus - ENT Exam ENT Exam: Normal Oropharynx - Neck Exam Neck Exam: Normal Inspection - Respiratory Exam Respiratory Exam: Decreased Breath Sounds - Cardiovascular Exam Cardiovascular Exam: Tachycardia, REGULAR RHYTHM, +S1, +S2 - GI/Abdominal Exam GI & Abdominal Exam: Soft, Normal Bowel Sounds - Extremities Exam Extremities Exam: Normal Capillary Refill. absent: Calf Tenderness, Pedal Edema - Neurological Exam Neurological Exam: Awake, CN II-XII Intact, Oriented x3 - Psychiatric Exam Psychiatric exam: Normal Mood - Skin Skin Exam: Pallor, Warm Assessment and Plan (1) Sepsis Assessment & Plan: WOUND CULTURES NOTED. CONTINUE iv CEFEPIME 1 G EVERY 12 HOURLY. CONTINUE iv DAPTOMYCIN 4 BETA-HEMOLYTIC GROUP B STREPTOCOCCUS. LOCAL WOUND CARE FREQUENT POSITIONING OF THE PATIENT ON LATERAL SIDE EVERY 4 HOURLY. Status: Acute (2) Decubitus ulcers Status: Acute (3) Metabolic acidosis Status: Acute (4) ESRD (end stage renal disease) Assessment & Plan: ON HEMODIALYSIS MWF. Status: Acute (5) Type 2 diabetes mellitus with diabetic nephropathy Status: Acute (6) PVD (peripheral vascular disease) Status: Acute
[2017-12-19 06:34] LABS: BASO # 0.1 K/uL (0.0-0.2); BASO % 0.3 % (0.0-2.0); EOS # 0.2 K/uL (0.0-0.7); EOS % 0.8 % (0.0-4.0); LYMPH # 1.6 K/uL (1.0-4.3); LYMPH % 7.3 % (20.0-40.0); MEAN CELL VOLUME 81.2 fL (81.0-99.0); MEAN CORPUSCULAR HEMOGLOBIN 27.3 pg (27.0-31.0); MEAN CORPUSCULAR HGB CONC 33.6 g/dL (33.0-37.0); MEAN PLATELET VOLUME 7.3 fL (7.2-11.7); MONO # 1.7 K/uL (0.0-0.8); NEUT # 17.8 K/uL (1.8-7.0); NEUT % 83.6 % (50.0-75.0); NRBC % 0.6 % (0.0-2.0); PLATELET COUNT 347 K/uL (130-400); RBC 3.29 Mil/uL (3.80-5.20); RED CELL DISTRIBUTION WIDTH 16.6 % (11.5-14.5); WHITE BLOOD COUNT 21.3 K/uL (4.8-10.8)
[2017-12-19 07:07] LABS: ALB/GLOB RATIO 0.6 (1.0-2.1); ALBUMIN 3.2 g/dL (3.5-5.0); ALT/SGPT < 6 U/L (9-52); AST/SGOT 20 U/L (14-36); BLOOD UREA NITROGEN 74 mg/dL (7-17); CALCIUM 8.7 mg/dl (8.6-10.4); GFR AFRICAN-AMERICAN 9; GFR NON-AFRICAN AMERICAN 8
[2017-12-19] MEDS: (Novolog) Insulin Aspart, Recombinant 100 u/ml 10 ml vial SC SCH ×4 (07:30→22:00)
[2017-12-19 08:14] LABS: EOSINOPHIL 2 % (0-4); LYMPHOCYTE 11 % (20-40); MONOCYTE 7 % (0-10); NEUTROPHIL 80 % (50-75); TOTAL CELLS COUNTED 100
[2017-12-19 08:15] LABS: ANISOCYTOSIS SLIGHT; HYPOCHROMIC SLIGHT; PLATELET ESTIMATE NORMAL (NORMAL); POLYCHROMIC SLIGHT; TARGET CELLS SLIGHT
--- NOTE | 2017-12-19 08:53 | CP.CCUPN ---
<Teddy Koo - Last Filed: 12/19/17 11:35> CCU Subjective - Physician Review Subjective (Free Text): 12/18/17 08:22 Patient seen and examined. Patient's blood pressure is labile. Overnight the dopamine was turned off; however, she became hypotensive and needed it restarted. 12/19/17 08:51 Patient seen and examined. Patient slept well and has no acute complaints at this time. CCU Objective - Vital Signs / Intake & Output Vital Signs (Last 4 hours): Vital Signs Temp Pulse Resp BP 12/19/17 08:00 98.9 F 91 H 19 106/69 12/19/17 07:00 92 H 16 116/75 12/19/17 06:30 95 H 15 126/83 12/19/17 06:00 93 H 19 110/69 12/19/17 05:30 95 H 16 103/64 12/19/17 05:00 101 H 17 126/84 12/19/17 04:59 101 H 16 Intake and Output (Last 8hrs): Intake & Output 12/18/17 12/19/17 12/19/17 22:59 06:59 14:59 Intake Total 310 250 0 Output Total 180 0 Balance 130 250 0 Weight 99 lb 3.328 oz Intake: Intake, IV Amount 50 Left Hand 50 Oral 310 200 0 Output: Urine 0 0 Urine, Voided 0 0 Stool 180 Other: # Bowel Movements 1 0 - Physical Exam Head: Positive for: Atraumatic, Normocephalic Pupils: Positive for: PERRL Extroacular Muscles: Positive for: EOMI Conjunctiva: Positive for: Normal Mouth: Positive for: Moist Mucous Membranes Respiratory/Chest: Positive for: Decreased Breath Sounds Cardiovascular: Positive for: Regular Rate and Rhythm, Normal S1, S2 Abdomen: Positive for: Normal Bowel Sounds. Negative for: Tenderness Back: Positive for: Other (sacral wound) Upper Extremity: Negative for: Edema Lower Extremity: Positive for: Other (multiple leg/foot ulcers) Neurological: Positive for: GCS=15 Skin: Positive for: Warm, Dry Psychiatric: Positive for: Alert, Oriented x 3 - Medications Active Medications: Active Medications Generic Name Dose Route Start Last Admin Trade Name Freq PRN Reason Stop Dose Admin Dextrose 25 ml 12/18/17 09:56 Dextrose 50% Inj IV Q3H PRN Hypoglycemia Heparin Sodium (Porcine) 5,000 units 12/17/17 22:00 12/18/17 21:30 Heparin SC Not Given Q12H [facility] Cefepime HCl 1 gm in 50 mls @ 100 mls/hr 12/17/17 11:45 12/18/17 23:03 Maxipime Iv 1 Gm Premix IVPB 100 mls/hr Q12H [facility] Administration Protocol Dopamine HCl/Dextrose 400 mg in 250 mls @ 3.912 mls/hr 12/17/17 12:26 09:30 Dopamine 400mg/250ml D5w IV 0 mcg/kg/min .Q24H PRN 0 mls/hr TITRATE PER MD ORDER Titration Protocol 2 MCG/KG/MIN Daptomycin 310 mg/ Sodium 100 mls @ 100 mls/hr 12/17/17 20:30 12/17/17 21:08 Chloride IV 12/27/17 20:31 100 mls/hr Q48H [facility] Administration Insulin Aspart 0 unit 12/18/17 09:55 12/18/17 21:30 Novolog SC Not Given ACHS [facility] Protocol Pneumococcal Polyvalent Vaccine 0.5 ml 12/19/17 10:00 Pneumovax 23 Vaccine IM 12/19/17 10:01 .ONCE ONE - Patient Studies Lab Studies: Microbiology Studies 12/17/17 12:30 Gram Stain - Final Buttock Wound Culture - Final Escherichia Coli Beta Hemolytic Strep Group B 12/17/17 10:40 Blood Culture - Preliminary Blood NO GROWTH AFTER 24 HOURS 12/17/17 11:00 Blood Culture - Preliminary Blood NO GROWTH AFTER 24 HOURS 12/17/17 15:00 MRSA Culture (Admit) - Final Nose MRSA NOT DETECTED Lab Studies 12/19/17 12/19/17 12/19/17 Range/Units 07:22 06:26 06:25 WBC 21.3 H (4.8-10.8) K/uL RBC 3.29 L (3.80-5.20) Mil/uL Hgb 9.0 L (11.0-16.0) g/dL Hct 26.7 L (34.0-47.0) % MCV 81.2 (81.0-99.0) fL MCH 27.3 (27.0-31.0) pg MCHC 33.6 (33.0-37.0) g/dL RDW 16.6 H (11.5-14.5) % Plt Count 347 (130-400) K/uL MPV 7.3 (7.2-11.7) fL Neut % (Auto) 83.6 H (50.0-75.0) % Lymph % (Auto) 7.3 L (20.0-40.0) % Callahan % (Auto) 8.0 (0.0-10.0) % Eos % (Auto) 0.8 (0.0-4.0) % Baso % (Auto) 0.3 (0.0-2.0) % Neut # (Auto) 17.8 H (1.8-7.0) K/uL Lymph # (Auto) 1.6 (1.0-4.3) K/uL Callahan # (Auto) 1.7 H (0.0-0.8) K/uL Eos # (Auto) 0.2 (0.0-0.7) K/uL Baso # (Auto) 0.1 (0.0-0.2) K/uL Neutrophils % (Manual) 80 H (50-75) % Lymphocytes % (Manual) 11 L (20-40) % Monocytes % (Manual) 7 (0-10) % Eosinophils % (Manual) 2 (0-4) % Platelet Estimate Normal (NORMAL) Polychromasia Slight Hypochromasia (manual) Slight Anisocytosis (manual) Slight Target Cells Slight Sodium 136 (132-148) mmol/L Potassium 3.9 (3.6-5.2) mmol/L Chloride 101 (98-107) mmol/L Carbon Dioxide 13 L (22-30) mmol/L Anion Gap 26 H (10-20) BUN 74 H (7-17) mg/dL Creatinine 6.0 H (0.7-1.2) mg/dL Est GFR ( Amer) 9 Est GFR (Non-Af Amer) 8 POC Glucose (mg/dL) 142 H (65-110) mg/dL Random Glucose 138 H (65-105) mg/dL Calcium 8.7 (8.6-10.4) mg/dl Phosphorus 5.0 H (2.5-4.5) mg/dL Magnesium 2.2 (1.6-2.3) mg/dL Total Bilirubin 1.3 (0.2-1.3) mg/dL AST 20 (14-36) U/L ALT < 6 L (9-52) U/L Alkaline Phosphatase 157 H D (38-126) U/L Total Protein 9.1 H (6.3-8.3) g/dL Albumin 3.2 L (3.5-5.0) g/dL Globulin 5.8 H (2.2-3.9) gm/dL Albumin/Globulin Ratio 0.6 L (1.0-2.1) Procalcitonin (0.19-0.49) NG/ML C. difficile Ag & Toxin (NEGATIVE) 12/18/17 12/18/17 12/18/17 Range/Units 21:20 16:30 12:08 WBC (4.8-10.8) K/uL RBC (3.80-5.20) Mil/uL Hgb (11.0-16.0) g/dL Hct (34.0-47.0) % MCV (81.0-99.0) fL MCH (27.0-31.0) pg MCHC (33.0-37.0) g/dL RDW (11.5-14.5) % Plt Count (130-400) K/uL MPV (7.2-11.7) fL Neut % (Auto) (50.0-75.0) % Lymph % (Auto) (20.0-40.0) % Callahan % (Auto) (0.0-10.0) % Eos % (Auto) (0.0-4.0) % Baso % (Auto) (0.0-2.0) % Neut # (Auto) (1.8-7.0) K/uL Lymph # (Auto) (1.0-4.3) K/uL Callahan # (Auto) (0.0-0.8) K/uL Eos # (Auto) (0.0-0.7) K/uL Baso # (Auto) (0.0-0.2) K/uL Neutrophils % (Manual) (50-75) % Lymphocytes % (Manual) (20-40) % Monocytes % (Manual) (0-10) % Eosinophils % (Manual) (0-4) % Platelet Estimate (NORMAL) Polychromasia Hypochromasia (manual) Anisocytosis (manual) Target Cells Sodium (132-148) mmol/L Potassium (3.6-5.2) mmol/L Chloride (98-107) mmol/L Carbon Dioxide (22-30) mmol/L Anion Gap (10-20) BUN (7-17) mg/dL Creatinine (0.7-1.2) mg/dL Est GFR ( Amer) Est GFR (Non-Af Amer) POC Glucose (mg/dL) 125 H 200 H 153 H (65-110) mg/dL Random Glucose (65-105) mg/dL Calcium (8.6-10.4) mg/dl Phosphorus (2.5-4.5) mg/dL Magnesium (1.6-2.3) mg/dL Total Bilirubin (0.2-1.3) mg/dL AST (14-36) U/L ALT (9-52) U/L Alkaline Phosphatase (38-126) U/L Total Protein (6.3-8.3) g/dL Albumin (3.5-5.0) g/dL Globulin (2.2-3.9) gm/dL Albumin/Globulin Ratio (1.0-2.1) Procalcitonin (0.19-0.49) NG/ML C. difficile Ag & Toxin (NEGATIVE) 12/18/17 12/18/17 Range/Units 11:06 09:57 WBC (4.8-10.8) K/uL RBC (3.80-5.20) Mil/uL Hgb (11.0-16.0) g/dL Hct (34.0-47.0) % MCV (81.0-99.0) fL MCH (27.0-31.0) pg MCHC (33.0-37.0) g/dL RDW (11.5-14.5) % Plt Count (130-400) K/uL MPV (7.2-11.7) fL Neut % (Auto) (50.0-75.0) % Lymph % (Auto) (20.0-40.0) % Callahan % (Auto) (0.0-10.0) % Eos % (Auto) (0.0-4.0) % Baso % (Auto) (0.0-2.0) % Neut # (Auto) (1.8-7.0) K/uL Lymph # (Auto) (1.0-4.3) K/uL Callahan # (Auto) (0.0-0.8) K/uL Eos # (Auto) (0.0-0.7) K/uL Baso # (Auto) (0.0-0.2) K/uL Neutrophils % (Manual) (50-75) % Lymphocytes % (Manual) (20-40) % Monocytes % (Manual) (0-10) % Eosinophils % (Manual) (0-4) % Platelet Estimate (NORMAL) Polychromasia Hypochromasia (manual) Anisocytosis (manual) Target Cells Sodium (132-148) mmol/L Potassium (3.6-5.2) mmol/L Chloride (98-107) mmol/L Carbon Dioxide (22-30) mmol/L Anion Gap (10-20) BUN (7-17) mg/dL Creatinine (0.7-1.2) mg/dL Est GFR ( Amer) Est GFR (Non-Af Amer) POC Glucose (mg/dL) (65-110) mg/dL Random Glucose (65-105) mg/dL Calcium (8.6-10.4) mg/dl Phosphorus (2.5-4.5) mg/dL Magnesium (1.6-2.3) mg/dL Total Bilirubin (0.2-1.3) mg/dL AST (14-36) U/L ALT (9-52) U/L Alkaline Phosphatase (38-126) U/L Total Protein (6.3-8.3) g/dL Albumin (3.5-5.0) g/dL Globulin (2.2-3.9) gm/dL Albumin/Globulin Ratio (1.0-2.1) Procalcitonin 5.71 H (0.19-0.49) NG/ML C. difficile Ag & Toxin Negative (NEGATIVE) Laboratory Results - last 24 hr 12/18/17 12/18/17 12/18/17 09:57 11:06 12:08 WBC RBC Hgb Hct MCV MCH MCHC RDW Plt Count MPV Neut % (Auto) Lymph % (Auto) Callahan % (Auto) Eos % (Auto) Baso % (Auto) Neut # (Auto) Lymph # (Auto) Callahan # (Auto) Eos # (Auto) Baso # (Auto) Neutrophils % (Manual) Lymphocytes % (Manual) Monocytes % (Manual) Eosinophils % (Manual) Platelet Estimate Polychromasia Hypochromasia (manual) Anisocytosis (manual) Target Cells Sodium Potassium Chloride Carbon Dioxide Anion Gap BUN Creatinine Est GFR ( Amer) Est GFR (Non-Af Amer) POC Glucose (mg/dL) 153 H Random Glucose Calcium Phosphorus Magnesium Total Bilirubin AST ALT Alkaline Phosphatase Total Protein Albumin Globulin Albumin/Globulin Ratio Procalcitonin 5.71 H C. difficile Ag & Toxin Negative 12/18/17 12/18/17 12/19/17 16:30 21:20 06:25 WBC 21.3 H RBC 3.29 L Hgb 9.0 L Hct 26.7 L MCV 81.2 MCH 27.3 MCHC 33.6 RDW 16.6 H Plt Count 347 MPV 7.3 Neut % (Auto) 83.6 H Lymph % (Auto) 7.3 L Callahan % (Auto) 8.0 Eos % (Auto) 0.8 Baso % (Auto) 0.3 Neut # (Auto) 17.8 H Lymph # (Auto) 1.6 Callahan # (Auto) 1.7 H Eos # (Auto) 0.2 Baso # (Auto) 0.1 Neutrophils % (Manual) 80 H Lymphocytes % (Manual) 11 L Monocytes % (Manual) 7 Eosinophils % (Manual) 2 Platelet Estimate Normal Polychromasia Slight Hypochromasia (manual) Slight Anisocytosis (manual) Slight Target Cells Slight Sodium Potassium Chloride Carbon Dioxide Anion Gap BUN Creatinine Est GFR ( Amer) Est GFR (Non-Af Amer) POC Glucose (mg/dL) 200 H 125 H Random Glucose Calcium Phosphorus Magnesium Total Bilirubin AST ALT Alkaline Phosphatase Total Protein Albumin Globulin Albumin/Globulin Ratio Procalcitonin C. difficile Ag & Toxin 12/19/17 12/19/17 06:26 07:22 WBC RBC Hgb Hct MCV MCH MCHC RDW Plt Count MPV Neut % (Auto) Lymph % (Auto) Callahan % (Auto) Eos % (Auto) Baso % (Auto) Neut # (Auto) Lymph # (Auto) Callahan # (Auto) Eos # (Auto) Baso # (Auto) Neutrophils % (Manual) Lymphocytes % (Manual) Monocytes % (Manual) Eosinophils % (Manual) Platelet Estimate Polychromasia Hypochromasia (manual) Anisocytosis (manual) Target Cells Sodium 136 Potassium 3.9 Chloride 101 Carbon Dioxide 13 L Anion Gap 26 H BUN 74 H Creatinine 6.0 H Est GFR ( Amer) 9 Est GFR (Non-Af Amer) 8 POC Glucose (mg/dL) 142 H Random Glucose 138 H Calcium 8.7 Phosphorus 5.0 H Magnesium 2.2 Total Bilirubin 1.3 AST 20 ALT < 6 L Alkaline Phosphatase 157 H D Total Protein 9.1 H Albumin 3.2 L Globulin 5.8 H Albumin/Globulin Ratio 0.6 L Procalcitonin C. difficile Ag & Toxin Fingerstick Blood Sugar Results: 142 Critical Care Progress Note - Nutrition Nutrition: Nutrition Category Date Time Status Renal Diet [DIET] Diets 12/17/17 Dinner Active Assessment/Plan - Assessment and Plan (Free Text) Assessment: This is a 37 year old female with PMHx ESRD on HD (non-compliant), DM 1, HTN, Anemia, DVT who presented with general malaise. She has not had dialysis in 1 week. Admitted to the ICU in need of urgent dialysis and found with metabolic acidosis. The acidosis is improving after the first session of hemodialysis. Patient is due for another session of dialysis today. Patient has not been on the dopamine drip. Will reassess the patient after dialysis, and if the patient' s blood pressure is normal, she may be downgraded to med-surg. Neuro Awake, verbal Cardio Assessment: Hypotension Will wean off of Dopamine drip as tolerated Pulm Saturating well on room air GI Renal dialysis diet Endocrine Assessment: DM 1 Aspart ISS Renal Assessment: ESRD on HD, non-compliant with HD, Metabolic acidosis Nephro on consult Dialysis MWF ordered acidosis improving after dialysis Infectious Disease Assessment: Sacral wounds (E.coli & Group B Strep) Cefepime 1 gm Q12H Daptomycin 310 mg Q48H ID on consult Prophylaxis Heparin SC Q12H Protonix 40 mg IV daily Disposition: Will downgrade to med-surg if stable later today Discussed with Dr. Smith <Dayo Smith - Last Filed: 12/19/17 17:12> CCU Objective - Vital Signs / Intake & Output Vital Signs (Last 4 hours): Vital Signs Temp Pulse Pulse Resp BP BP Pulse Ox 12/19/17 17:05 137/90 12/19/17 16:50 131/90 12/19/17 16:35 131/89 12/19/17 16:20 140/90 12/19/17 16:05 139/95 H 12/19/17 15:50 135/86 12/19/17 15:35 124/85 12/19/17 15:20 85/49 L 12/19/17 15:05 93/42 L 12/19/17 15:00 91 H 17 109/70 12/19/17 14:50 89/52 L 12/19/17 14:35 95/54 L 12/19/17 14:20 98.5 F 91 H 17 109/70 99 12/19/17 14:15 98.5 F 91 H 17 133/88 Intake and Output (Last 8hrs): Intake & Output 12/19/17 12/19/17 12/19/17 06:59 14:59 22:59 Intake Total 250 480 Output Total 0 400 Balance 250 80 Weight 99 lb 3.328 oz 99 lb 7.914 oz Intake: Intake, IV Amount 50 Left Hand 50 Oral 200 480 Output: Urine 0 Urine, Voided 0 Stool 400 Other: # Bowel Movements 0 1 - Medications Active Medications: Active Medications Generic Name Dose Route Start Last Admin Trade Name Freq PRN Reason Stop Dose Admin Dextrose 25 ml 12/18/17 09:56 Dextrose 50% Inj IV Q3H PRN Hypoglycemia Epoetin Landon 10,000 unit 12/21/17 09:00 Procrit IV MWF [facility] Heparin Sodium (Porcine) 5,000 units 12/17/17 22:00 12/19/17 10:25 Heparin SC Not Given Q12H [facility] Cefepime HCl 1 gm in 50 mls @ 100 mls/hr 12/17/17 11:45 12/19/17 12:02 Maxipime Iv 1 Gm Premix IVPB 100 mls/hr Q12H [facility] Administration Protocol Dopamine HCl/Dextrose 400 mg in 250 mls @ 3.912 mls/hr 12/17/17 12:26 09:30 Dopamine 400mg/250ml D5w IV 0 mcg/kg/min .Q24H PRN 0 mls/hr TITRATE PER MD ORDER Titration Protocol 2 MCG/KG/MIN Daptomycin 310 mg/ Sodium 100 mls @ 100 mls/hr 12/17/17 20:30 12/17/17 21:08 Chloride IV 12/27/17 20:31 100 mls/hr Q48H [facility] Administration Insulin Aspart 0 unit 12/18/17 09:55 12/19/17 12:02 Novolog SC 4 unit ACHS [facility] Administration Protocol - Patient Studies Lab Studies: Microbiology Studies 12/17/17 12:30 Gram Stain - Final Buttock Wound Culture - Final Escherichia Coli Beta Hemolytic Strep Group B 12/17/17 10:40 Blood Culture - Preliminary Blood NO GROWTH AFTER 24 HOURS 12/17/17 11:00 Blood Culture - Preliminary Blood NO GROWTH AFTER 24 HOURS Lab Studies 12/19/17 12/19/17 12/19/17 Range/Units 16:29 15:52 15:52 WBC (4.8-10.8) K/uL RBC (3.80-5.20) Mil/uL Hgb (11.0-16.0) g/dL Hct (34.0-47.0) % MCV (81.0-99.0) fL MCH (27.0-31.0) pg MCHC (33.0-37.0) g/dL RDW (11.5-14.5) % Plt Count (130-400) K/uL MPV (7.2-11.7) fL Neut % (Auto) (50.0-75.0) % Lymph % (Auto) (20.0-40.0) % Callahan % (Auto) (0.0-10.0) % Eos % (Auto) (0.0-4.0) % Baso % (Auto) (0.0-2.0) % Neut # (Auto) (1.8-7.0) K/uL Lymph # (Auto) (1.0-4.3) K/uL Callahan # (Auto) (0.0-0.8) K/uL Eos # (Auto) (0.0-0.7) K/uL Baso # (Auto) (0.0-0.2) K/uL Neutrophils % (Manual) (50-75) % Lymphocytes % (Manual) (20-40) % Monocytes % (Manual) (0-10) % Eosinophils % (Manual) (0-4) % Platelet Estimate (NORMAL) Polychromasia Hypochromasia (manual) Anisocytosis (manual) Target Cells Sodium (132-148) mmol/L Potassium (3.6-5.2) mmol/L Chloride (98-107) mmol/L Carbon Dioxide (22-30) mmol/L Anion Gap (10-20) BUN (7-17) mg/dL Creatinine (0.7-1.2) mg/dL Est GFR ( Amer) Est GFR (Non-Af Amer) POC Glucose (mg/dL) 130 H (65-110) mg/dL Random Glucose (65-105) mg/dL Calcium (8.6-10.4) mg/dl Phosphorus 2.5 (2.5-4.5) mg/dL Magnesium (1.6-2.3) mg/dL % Saturation 89 H (20-55) Total Bilirubin (0.2-1.3) mg/dL AST (14-36) U/L ALT (9-52) U/L Alkaline Phosphatase (38-126) U/L Total Protein (6.3-8.3) g/dL Albumin (3.5-5.0) g/dL Globulin (2.2-3.9) gm/dL Albumin/Globulin Ratio (1.0-2.1) 12/19/17 12/19/17 12/19/17 Range/Units 11:38 07:22 06:26 WBC (4.8-10.8) K/uL RBC (3.80-5.20) Mil/uL Hgb (11.0-16.0) g/dL Hct (34.0-47.0) % MCV (81.0-99.0) fL MCH (27.0-31.0) pg MCHC (33.0-37.0) g/dL RDW (11.5-14.5) % Plt Count (130-400) K/uL MPV (7.2-11.7) fL Neut % (Auto) (50.0-75.0) % Lymph % (Auto) (20.0-40.0) % Callahan % (Auto) (0.0-10.0) % Eos % (Auto) (0.0-4.0) % Baso % (Auto) (0.0-2.0) % Neut # (Auto) (1.8-7.0) K/uL Lymph # (Auto) (1.0-4.3) K/uL Callahan # (Auto) (0.0-0.8) K/uL Eos # (Auto) (0.0-0.7) K/uL Baso # (Auto) (0.0-0.2) K/uL Neutrophils % (Manual) (50-75) % Lymphocytes % (Manual) (20-40) % Monocytes % (Manual) (0-10) % Eosinophils % (Manual) (0-4) % Platelet Estimate (NORMAL) Polychromasia Hypochromasia (manual) Anisocytosis (manual) Target Cells Sodium 136 (132-148) mmol/L Potassium 3.9 (3.6-5.2) mmol/L Chloride 101 (98-107) mmol/L Carbon Dioxide 13 L (22-30) mmol/L Anion Gap 26 H (10-20) BUN 74 H (7-17) mg/dL Creatinine 6.0 H (0.7-1.2) mg/dL Est GFR ( Amer) 9 Est GFR (Non-Af Amer) 8 POC Glucose (mg/dL) 231 H 142 H (65-110) mg/dL Random Glucose 138 H (65-105) mg/dL Calcium 8.7 (8.6-10.4) mg/dl Phosphorus 5.0 H (2.5-4.5) mg/dL Magnesium 2.2 (1.6-2.3) mg/dL % Saturation (20-55) Total Bilirubin 1.3 (0.2-1.3) mg/dL AST 20 (14-36) U/L ALT < 6 L (9-52) U/L Alkaline Phosphatase 157 H D (38-126) U/L Total Protein 9.1 H (6.3-8.3) g/dL Albumin 3.2 L (3.5-5.0) g/dL Globulin 5.8 H (2.2-3.9) gm/dL Albumin/Globulin Ratio 0.6 L (1.0-2.1) 12/19/17 12/18/17 Range/Units 06:25 21:20 WBC 21.3 H (4.8-10.8) K/uL RBC 3.29 L (3.80-5.20) Mil/uL Hgb 9.0 L (11.0-16.0) g/dL Hct 26.7 L (34.0-47.0) % MCV 81.2 (81.0-99.0) fL MCH 27.3 (27.0-31.0) pg MCHC 33.6 (33.0-37.0) g/dL RDW 16.6 H (11.5-14.5) % Plt Count 347 (130-400) K/uL MPV 7.3 (7.2-11.7) fL Neut % (Auto) 83.6 H (50.0-75.0) % Lymph % (Auto) 7.3 L (20.0-40.0) % Callahan % (Auto) 8.0 (0.0-10.0) % Eos % (Auto) 0.8 (0.0-4.0) % Baso % (Auto) 0.3 (0.0-2.0) % Neut # (Auto) 17.8 H (1.8-7.0) K/uL Lymph # (Auto) 1.6 (1.0-4.3) K/uL Callahan # (Auto) 1.7 H (0.0-0.8) K/uL Eos # (Auto) 0.2 (0.0-0.7) K/uL Baso # (Auto) 0.1 (0.0-0.2) K/uL Neutrophils % (Manual) 80 H (50-75) % Lymphocytes % (Manual) 11 L (20-40) % Monocytes % (Manual) 7 (0-10) % Eosinophils % (Manual) 2 (0-4) % Platelet Estimate Normal (NORMAL) Polychromasia Slight Hypochromasia (manual) Slight Anisocytosis (manual) Slight Target Cells Slight Sodium (132-148) mmol/L Potassium (3.6-5.2) mmol/L Chloride (98-107) mmol/L Carbon Dioxide (22-30) mmol/L Anion Gap (10-20) BUN (7-17) mg/dL Creatinine (0.7-1.2) mg/dL Est GFR ( Amer) Est GFR (Non-Af Amer) POC Glucose (mg/dL) 125 H (65-110) mg/dL Random Glucose (65-105) mg/dL Calcium (8.6-10.4) mg/dl Phosphorus (2.5-4.5) mg/dL Magnesium (1.6-2.3) mg/dL % Saturation (20-55) Total Bilirubin (0.2-1.3) mg/dL AST (14-36) U/L ALT (9-52) U/L Alkaline Phosphatase (38-126) U/L Total Protein (6.3-8.3) g/dL Albumin (3.5-5.0) g/dL Globulin (2.2-3.9) gm/dL Albumin/Globulin Ratio (1.0-2.1) Laboratory Results - last 24 hr 12/18/17 12/19/17 12/19/17 21:20 06:25 06:26 WBC 21.3 H RBC 3.29 L Hgb 9.0 L Hct 26.7 L MCV 81.2 MCH 27.3 MCHC 33.6 RDW 16.6 H Plt Count 347 MPV 7.3 Neut % (Auto) 83.6 H Lymph % (Auto) 7.3 L Callahan % (Auto) 8.0 Eos % (Auto) 0.8 Baso % (Auto) 0.3 Neut # (Auto) 17.8 H Lymph # (Auto) 1.6 Callahan # (Auto) 1.7 H Eos # (Auto) 0.2 Baso # (Auto) 0.1 Neutrophils % (Manual) 80 H Lymphocytes % (Manual) 11 L Monocytes % (Manual) 7 Eosinophils % (Manual) 2 Platelet Estimate Normal Polychromasia Slight Hypochromasia (manual) Slight Anisocytosis (manual) Slight Target Cells Slight Sodium 136 Potassium 3.9 Chloride 101 Carbon Dioxide 13 L Anion Gap 26 H BUN 74 H Creatinine 6.0 H Est GFR ( Amer) 9 Est GFR (Non-Af Amer) 8 POC Glucose (mg/dL) 125 H Random Glucose 138 H Calcium 8.7 Phosphorus 5.0 H Magnesium 2.2 % Saturation Total Bilirubin 1.3 AST 20 ALT < 6 L Alkaline Phosphatase 157 H D Total Protein 9.1 H Albumin 3.2 L Globulin 5.8 H Albumin/Globulin Ratio 0.6 L 12/19/17 12/19/17 12/19/17 07:22 11:38 15:52 WBC RBC Hgb Hct MCV MCH MCHC RDW Plt Count MPV Neut % (Auto) Lymph % (Auto) Callahan % (Auto) Eos % (Auto) Baso % (Auto) Neut # (Auto) Lymph # (Auto) Callahan # (Auto) Eos # (Auto) Baso # (Auto) Neutrophils % (Manual) Lymphocytes % (Manual) Monocytes % (Manual) Eosinophils % (Manual) Platelet Estimate Polychromasia Hypochromasia (manual) Anisocytosis (manual) Target Cells Sodium Potassium Chloride Carbon Dioxide Anion Gap BUN Creatinine Est GFR ( Amer) Est GFR (Non-Af Amer) POC Glucose (mg/dL) 142 H 231 H Random Glucose Calcium Phosphorus 2.5 Magnesium % Saturation Total Bilirubin AST ALT Alkaline Phosphatase Total Protein Albumin Globulin Albumin/Globulin Ratio 12/19/17 12/19/17 15:52 16:29 WBC RBC Hgb Hct MCV MCH MCHC RDW Plt Count MPV Neut % (Auto) Lymph % (Auto) Callahan % (Auto) Eos % (Auto) Baso % (Auto) Neut # (Auto) Lymph # (Auto) Callahan # (Auto) Eos # (Auto) Baso # (Auto) Neutrophils % (Manual) Lymphocytes % (Manual) Monocytes % (Manual) Eosinophils % (Manual) Platelet Estimate Polychromasia Hypochromasia (manual) Anisocytosis (manual) Target Cells Sodium Potassium Chloride Carbon Dioxide Anion Gap BUN Creatinine Est GFR ( Amer) Est GFR (Non-Af Amer) POC Glucose (mg/dL) 130 H Random Glucose Calcium Phosphorus Magnesium % Saturation 89 H Total Bilirubin AST ALT Alkaline Phosphatase Total Protein Albumin Globulin Albumin/Globulin Ratio Critical Care Progress Note - Nutrition Nutrition: Nutrition Category Date Time Status NPO Diet [DIET] Diets 12/21/17 Breakfast Active Renal Diet [DIET] Diets 12/17/17 Dinner Active Attending/Attestation - Attestation I have personally seen and examined this patient.: Yes I have fully participated in the care of the patient.: Yes I have reviewed all pertinent clinical information: Yes Notes (Text): 12/19/17 17:11 patient seen and examined in the intensive care unit. Continue hemodialysis Continue IV antibiotics Follow-up culture and sensitivity Stable for transfer to floor
[2017-12-19] MEDS ORDERED: Pneumococcal 23-Valent Vaccine IM ONE (10:00)
[2017-12-19] MEDS: Cefepime IV 1 gm in Dextrose 1 GM/50 ML BAG IVPB SCH ×2 (12:02→23:45)
--- NOTE | 2017-12-19 13:35 | CP.PCM.PN ---
Subjective - Date & Time of Evaluation Date of Evaluation: 12/19/17 Time of Evaluation: 13:32 - Subjective Subjective: s/p dialysis 12/17; repeat pending s/p 2 units prbcs blood transfusions eating well; afebrile on IV ABs- has wound infection no n,v, f, chills,; less SOB Objective - Vital Signs/Intake and Output Vital Signs (last 24 hours): Temp Pulse Resp BP Pulse Ox 98.5 F 91 H 18 108/67 98 12/19/17 12:00 12/19/17 13:00 12/19/17 13:00 12/19/17 13:00 12/19/17 13:00 Intake and Output: 12/19/17 12/19/17 06:59 18:59 Intake Total 400 480 Output Total 0 400 Balance 400 80 - Medications Medications: Current Medications Dextrose (Dextrose 50% Inj) 25 ml IV Q3H PRN PRN Reason: Hypoglycemia Heparin Sodium (Porcine) (Heparin) 5,000 units SC Q12H [facility] Last Admin: 12/19/17 10:25 Dose: Not Given Cefepime HCl (Maxipime Iv 1 Gm Premix) 1 gm in 50 mls @ 100 mls/hr IVPB Q12H AUSTYN PRN Reason: Protocol Last Admin: 12/19/17 12:02 Dose: 100 mls/hr Dopamine HCl/Dextrose (Dopamine 400mg/250ml D5w) 400 mg in 250 mls @ 3.912 mls/ hr IV .Q24H PRN; Protocol; 2 MCG/KG/MIN PRN Reason: TITRATE PER MD ORDER Last Titration: 12/18/17 09:30 Dose: 0 mcg/kg/min, 0 mls/hr Daptomycin 310 mg/ Sodium (Chloride) 100 mls @ 100 mls/hr IV Q48H [facility] Stop: 12/27/17 20:31 Last Admin: 12/17/17 21:08 Dose: 100 mls/hr Insulin Aspart (Novolog) 0 unit SC ACHS AUSTYN PRN Reason: Protocol Last Admin: 12/19/17 12:02 Dose: 4 unit - Labs Labs: 12/19/17 06:25 12/19/17 06:26 PT 14.1 SECONDS (9.7-12.2) H 12/17/17 11:01 INR 1.2 12/17/17 11:01 APTT 32 SECONDS (21-34) 12/18/17 04:59 - Constitutional Appears: No Acute Distress, Older Than Stated Age, Chronically Ill - Head Exam Head Exam: ATRAUMATIC, NORMAL INSPECTION - Eye Exam Eye Exam: EOMI, Normal appearance - Neck Exam Neck Exam: Normal Inspection. absent: Tenderness - Respiratory Exam Respiratory Exam: Clear to Ausculation Bilateral, NORMAL BREATHING PATTERN - Cardiovascular Exam Cardiovascular Exam: REGULAR RHYTHM, +S1 - GI/Abdominal Exam GI & Abdominal Exam: Soft. absent: Tenderness - Extremities Exam Extremities Exam: Normal Inspection. absent: Tenderness - Neurological Exam Neurological Exam: Alert, CN II-XII Intact - Skin Skin Exam: Dry, Warm Assessment and Plan (1) Type 2 diabetes mellitus with diabetic nephropathy Status: Acute (2) ESRD (end stage renal disease) Status: Acute (3) Metabolic acidosis Status: Acute (4) Sepsis associated with vascular access catheter Status: Acute - Assessment and Plan (Free Text) Plan: Dialysis now and MWF Add EPO; check iron stores IV ABs discuss access with patient
--- NOTE | 2017-12-19 14:07 | CP.PCM.PN ---
Subjective - Date & Time of Evaluation Date of Evaluation: 12/19/17 Time of Evaluation: 14:06 - Subjective Subjective: AFEBRILE LOW BP ON SMALL DOSE DOPAMINE SEPSIS SEC TO DECUBITUS ULCER ON DIALYSIS CONT IV AB Objective - Vital Signs/Intake and Output Vital Signs (last 24 hours): Temp Pulse Resp BP Pulse Ox 98.5 F 91 H 18 108/67 98 12/19/17 12:00 12/19/17 13:00 12/19/17 13:00 12/19/17 13:00 12/19/17 13:00 Intake and Output: 12/19/17 12/19/17 11:59 23:59 Intake Total 480 200 Output Total 400 0 Balance 80 200 - Medications Medications: Current Medications Dextrose (Dextrose 50% Inj) 25 ml IV Q3H PRN PRN Reason: Hypoglycemia Epoetin Landon (Procrit) 10,000 unit IV MWF [facility] Heparin Sodium (Porcine) (Heparin) 5,000 units SC Q12H [facility] Last Admin: 12/19/17 10:25 Dose: Not Given Cefepime HCl (Maxipime Iv 1 Gm Premix) 1 gm in 50 mls @ 100 mls/hr IVPB Q12H [facility] PRN Reason: Protocol Last Admin: 12/19/17 12:02 Dose: 100 mls/hr Dopamine HCl/Dextrose (Dopamine 400mg/250ml D5w) 400 mg in 250 mls @ 3.912 mls/ hr IV .Q24H PRN; Protocol; 2 MCG/KG/MIN PRN Reason: TITRATE PER MD ORDER Last Titration: 12/18/17 09:30 Dose: 0 mcg/kg/min, 0 mls/hr Daptomycin 310 mg/ Sodium (Chloride) 100 mls @ 100 mls/hr IV Q48H [facility] Stop: 12/27/17 20:31 Last Admin: 12/17/17 21:08 Dose: 100 mls/hr Insulin Aspart (Novolog) 0 unit SC ACHS [facility] PRN Reason: Protocol Last Admin: 12/19/17 12:02 Dose: 4 unit - Labs Labs: 12/19/17 06:25 12/19/17 06:26 PT 14.1 SECONDS (9.7-12.2) H 12/17/17 11:01 INR 1.2 12/17/17 11:01 APTT 32 SECONDS (21-34) 12/18/17 04:59
--- NOTE | 2017-12-19 16:53 | CP.PCM.CON ---
History of Present Illness - History of Present Illness History of Present Illness: Surgery: Dr. Villalba Reason for consult: AVF creation HPI: Patient is a 37 y/o female pmhx of DM2, HTN, Sepsis, fungemia, ESRD on HD who presents to [facility] admitted to ICU for sepsis. Patient had similar symptoms back in April of 2017 where [place] [facility] [place] severe metabolic acidosis and kidney failure requiring HD. Patient had HD port placed during that time by IR. Patient has been receiving regular HD sinc then. PMH: HTN, DM2, Anemia, Rt leg DVT, ESRD on HD, fungemia PSH: , Rt leg vasc surgery, foot debridement and I&D, Right IJ permacath insertion Social: Denied tobacco, ETOH, srug abuse, pt is wheelchair bound Review of Systems - Review of Systems All systems: reviewed and no additional remarkable complaints except Review of Systems: ROS obtained and otherwise negative - Constitutional Constitutional: absent: Weight Loss - EENT Eyes: absent: Blurred Vision, Change in Vision - Cardiovascular Cardiovascular: absent: Diaphoresis, Dyspnea, Leg Edema - Respiratory Respiratory: absent: Cough, Wheezing - Gastrointestinal Gastrointestinal: absent: Abdominal Pain, Belching, Bloating - Genitourinary Genitourinary: absent: Hematuria, Pyuria - Musculoskeletal Musculoskeletal: absent: Joint Swelling, Muscle Cramps - Integumentary Integumentary: absent: Acne, New Lesions - Neurological Neurological: absent: Dizziness, Numbness - Endocrine Endocrine: absent: Polydipsia, Polyphagia - Hematologic/Lymphatic Hematologic: absent: Easy Bleeding, Easy Bruising Past Patient History - Infectious Disease Hx of Infectious Diseases: None - Tetanus Immunizations Tetanus Immunization: Unknown - Past Medical History & Family History Past Medical History?: Yes Past Family History: Reviewed and not pertinent - Past Social History Smoking Status: Never Smoked Chewing Tobacco Use: No Cigar Use: No Alcohol: None Drugs: Denies Home Situation {Lives}: With Family - CARDIAC Hx Hypertension: Yes - PULMONARY Hx Respiratory Disorders: No - NEUROLOGICAL Other/Comment: NEUROPATHY - HEENT Hx HEENT Problems: No - RENAL Hx Chronic Kidney Disease: Yes - ENDOCRINE/METABOLIC Hx Diabetes Mellitus Type 2: Yes - HEMATOLOGICAL/ONCOLOGICAL Hx Anemia: Yes - INTEGUMENTARY Hx Dermatological Problems: No - MUSCULOSKELETAL/RHEUMATOLOGICAL Hx Falls: No - GASTROINTESTINAL Hx Gastrointestinal Disorders: No - GENITOURINARY/GYNECOLOGICAL Hx Genitourinary Disorders: No - PSYCHIATRIC Hx Depression: No Hx Substance Use: No - SURGICAL HISTORY Hx Section: Yes Hx Mastectomy: No - ANESTHESIA Hx Anesthesia: Yes Hx Anesthesia Reactions: No Meds Allergies/Adverse Reactions: Allergies Allergy/AdvReac Type Severity Reaction Status Date / Time vancomycin Allergy RASH Verified 12/17/17 10:17 - Medications Medications: Current Medications Dextrose (Dextrose 50% Inj) 25 ml IV Q3H PRN PRN Reason: Hypoglycemia Epoetin Landon (Procrit) 10,000 unit IV MWF [facility] Heparin Sodium (Porcine) (Heparin) 5,000 units SC Q12H [facility] Last Admin: 12/19/17 10:25 Dose: Not Given Cefepime HCl (Maxipime Iv 1 Gm Premix) 1 gm in 50 mls @ 100 mls/hr IVPB Q12H [facility] PRN Reason: Protocol Last Admin: 12/19/17 12:02 Dose: 100 mls/hr Dopamine HCl/Dextrose (Dopamine 400mg/250ml D5w) 400 mg in 250 mls @ 3.912 mls/ hr IV .Q24H PRN; Protocol; 2 MCG/KG/MIN PRN Reason: TITRATE PER MD ORDER Last Titration: 12/18/17 09:30 Dose: 0 mcg/kg/min, 0 mls/hr Daptomycin 310 mg/ Sodium (Chloride) 100 mls @ 100 mls/hr IV Q48H [facility] Stop: 12/27/17 20:31 Last Admin: 12/17/17 21:08 Dose: 100 mls/hr Insulin Aspart (Novolog) 0 unit SC ACHS [facility] PRN Reason: Protocol Last Admin: 12/19/17 12:02 Dose: 4 unit Physical Exam - Constitutional Appears: Cachectic, Chronically Ill - Head Exam Head Exam: ATRAUMATIC, NORMOCEPHALIC - Eye Exam Eye Exam: EOMI, Normal appearance - ENT Exam ENT Exam: Mucous Membranes Moist - Neck Exam Additional comments: right IJ permacath - Respiratory Exam Respiratory Exam: NORMAL BREATHING PATTERN. absent: Respiratory Distress - Cardiovascular Exam Cardiovascular Exam: REGULAR RHYTHM. absent: Tachycardia - GI/Abdominal Exam GI & Abdominal Exam: Soft. absent: Distended, Tenderness - Extremities Exam Extremities exam: Positive for: normal inspection. Negative for: calf tenderness - Neurological Exam Neurological exam: Alert, Oriented x3 - Psychiatric Exam Psychiatric exam: Normal Affect, Normal Mood - Skin Skin Exam: Dry, Normal Color, Warm Results - Vital Signs Recent Vital Signs: Last Vital Signs Temp 98.5 F 12/19/17 14:15 Pulse 91 H 12/19/17 15:00 Resp 17 12/19/17 15:00 BP 131/89 12/19/17 16:35 Pulse Ox 99 12/19/17 14:20 - Labs Result Diagrams: 12/19/17 06:25 12/19/17 06:26 Labs: Laboratory Results - last 24 hr 12/18/17 12/19/17 12/19/17 21:20 06:25 06:26 WBC 21.3 H RBC 3.29 L Hgb 9.0 L Hct 26.7 L MCV 81.2 MCH 27.3 MCHC 33.6 RDW 16.6 H Plt Count 347 MPV 7.3 Neut % (Auto) 83.6 H Lymph % (Auto) 7.3 L [place] % (Auto) 8.0 Eos % (Auto) 0.8 Baso % (Auto) 0.3 Neut # (Auto) 17.8 H Lymph # (Auto) 1.6 [place] # (Auto) 1.7 H Eos # (Auto) 0.2 Baso # (Auto) 0.1 Neutrophils % (Manual) 80 H Lymphocytes % (Manual) 11 L Monocytes % (Manual) 7 Eosinophils % (Manual) 2 Platelet Estimate Normal Polychromasia Slight Hypochromasia (manual) Slight Anisocytosis (manual) Slight Target Cells Slight Sodium 136 Potassium 3.9 Chloride 101 Carbon Dioxide 13 L Anion Gap 26 H BUN 74 H Creatinine 6.0 H Est GFR ( Amer) 9 Est GFR (Non-Af Amer) 8 POC Glucose (mg/dL) 125 H Random Glucose 138 H Calcium 8.7 Phosphorus 5.0 H Magnesium 2.2 Total Bilirubin 1.3 AST 20 ALT < 6 L Alkaline Phosphatase 157 H D Total Protein 9.1 H Albumin 3.2 L Globulin 5.8 H Albumin/Globulin Ratio 0.6 L 12/19/17 12/19/17 12/19/17 07:22 11:38 16:29 WBC RBC Hgb Hct MCV MCH MCHC RDW Plt Count MPV Neut % (Auto) Lymph % (Auto) [place] % (Auto) Eos % (Auto) Baso % (Auto) Neut # (Auto) Lymph # (Auto) [place] # (Auto) Eos # (Auto) Baso # (Auto) Neutrophils % (Manual) Lymphocytes % (Manual) Monocytes % (Manual) Eosinophils % (Manual) Platelet Estimate Polychromasia Hypochromasia (manual) Anisocytosis (manual) Target Cells Sodium Potassium Chloride Carbon Dioxide Anion Gap BUN Creatinine Est GFR ( Amer) Est GFR (Non-Af Amer) POC Glucose (mg/dL) 142 H 231 H 130 H Random Glucose Calcium Phosphorus Magnesium Total Bilirubin AST ALT Alkaline Phosphatase Total Protein Albumin Globulin Albumin/Globulin Ratio Assessment & Plan - Assessment and Plan (Free Text) Assessment: 37 y/o female w/ ESRD on HD in need of AVF creation Plan: -Left arm precautions -vein mapping bilaterally -plan for AVF on Sunday this week -d/w Dr. Deejay Figueroa PGY3
--- NOTE | 2017-12-19 23:12 | CP.PCM.PN ---
Subjective - Date & Time of Evaluation Date of Evaluation: 12/19/17 Time of Evaluation: 23:12 - Subjective Subjective: AFEBRILE, AWAKE. OFF DOPAMINE. WEAK/ CAHECTIC TACHYCARDIA AT TIMES. BUTTOCK CULTURES +VE GRPB BETA HEMOLYTIC STREPT/ & E. COLI -PANSENSITIVE Objective - Vital Signs/Intake and Output Vital Signs (last 24 hours): Temp Pulse Resp BP Pulse Ox 98.6 F 92 H 16 139/87 100 12/19/17 20:00 12/19/17 17:24 12/19/17 17:24 12/19/17 17:25 12/19/17 16:40 Intake and Output: 12/19/17 12/20/17 18:59 06:59 Intake Total 660 0 Output Total 400 0 Balance 260 0 - Medications Medications: Current Medications Dextrose (Dextrose 50% Inj) 25 ml IV Q3H PRN PRN Reason: Hypoglycemia Epoetin Landon (Procrit) 10,000 unit IV MWF [facility] Heparin Sodium (Porcine) (Heparin) 5,000 units SC Q12H [facility] Last Admin: 12/19/17 22:17 Dose: Not Given Cefepime HCl (Maxipime Iv 1 Gm Premix) 1 gm in 50 mls @ 100 mls/hr IVPB Q12H [facility] PRN Reason: Protocol Last Admin: 12/19/17 12:02 Dose: 100 mls/hr Daptomycin 310 mg/ Sodium (Chloride) 100 mls @ 100 mls/hr IV Q48H [facility] Stop: 12/27/17 20:31 Last Admin: 12/19/17 20:30 Dose: 100 mls/hr Insulin Aspart (Novolog) 0 unit SC ACHS [facility] PRN Reason: Protocol Last Admin: 12/19/17 22:00 Dose: Not Given - Labs Labs: 12/19/17 06:25 12/19/17 06:26 PT 14.1 SECONDS (9.7-12.2) H 12/17/17 11:01 INR 1.2 12/17/17 11:01 APTT 32 SECONDS (21-34) 12/18/17 04:59 - Constitutional Appears: No Acute Distress, Cachectic, Chronically Ill - Head Exam Head Exam: NORMAL INSPECTION - Eye Exam Eye Exam: EOMI, PERRL - ENT Exam ENT Exam: Normal Oropharynx - Neck Exam Neck Exam: Normal Inspection - Respiratory Exam Respiratory Exam: Clear to Ausculation Bilateral, NORMAL BREATHING PATTERN - Cardiovascular Exam Cardiovascular Exam: Tachycardia, REGULAR RHYTHM, +S1, +S2 - GI/Abdominal Exam GI & Abdominal Exam: Soft, Normal Bowel Sounds - Extremities Exam Extremities Exam: absent: Calf Tenderness, Pedal Edema (OLD HEALING SCARS AND DEPIGMENTED LEISION.) - Neurological Exam Neurological Exam: Awake, CN II-XII Intact, Oriented x3 - Skin Skin Exam: Normal Color, Warm Assessment and Plan (1) Sepsis Assessment & Plan: DECUBITUS WOUND CULTURES NOTED. CONTINUE iv CEFEPIME 1 G EVERY 12 HOURLY. 12/17/17 CONTINUE iv DAPTOMYCIN 4 BETA-HEMOLYTIC GROUP B STREPTOCOCCUS.12/17/17 LOCAL WOUND CARE FREQUENT POSITIONING OF THE PATIENT ON LATERAL SIDE EVERY 4 HOURLY. Status: Acute (2) Decubitus ulcers Assessment & Plan: 3-PHASE BONE SCAN SACRUM R/O OSTEOMYLITIS CONTINUE ANTIBIOTICS Status: Acute (3) Metabolic acidosis Status: Acute (4) ESRD (end stage renal disease) Assessment & Plan: ON HEMODIALYSIS MWF. Status: Acute (5) Type 2 diabetes mellitus with diabetic nephropathy Status: Acute (6) PVD (peripheral vascular disease) Status: Acute
[2017-12-20] MEDS: (Novolog) Insulin Aspart, Recombinant 100 u/ml 10 ml vial SC SCH ×4 (08:33→22:10)
--- NOTE | 2017-12-20 09:36 | CP.PCM.PN ---
Subjective - Date & Time of Evaluation Date of Evaluation: 12/20/17 Time of Evaluation: 09:34 - Subjective Subjective: stable dialysis 5/2 alert; seen by vascular- for AV access eval pt wants PD- told pt this is not realistic- no training facility willing to train pt less dyspneic, no new complaint Objective - Vital Signs/Intake and Output Vital Signs (last 24 hours): Temp Pulse Resp BP Pulse Ox 98.7 F 92 H 16 139/87 100 12/20/17 07:55 12/19/17 17:24 12/19/17 17:24 12/19/17 17:25 12/19/17 16:40 Intake and Output: 12/20/17 12/20/17 06:59 18:59 Intake Total 0 0 Output Total 0 Balance 0 0 - Medications Medications: Current Medications Dextrose (Dextrose 50% Inj) 25 ml IV Q3H PRN PRN Reason: Hypoglycemia Epoetin Landon (Procrit) 10,000 unit IV MWF [facility] Heparin Sodium (Porcine) (Heparin) 5,000 units SC Q12H [facility] Last Admin: 12/20/17 09:06 Dose: Not Given Cefepime HCl (Maxipime Iv 1 Gm Premix) 1 gm in 50 mls @ 100 mls/hr IVPB Q12H [facility] PRN Reason: Protocol Last Admin: 12/19/17 23:45 Dose: 100 mls/hr Daptomycin 310 mg/ Sodium (Chloride) 100 mls @ 100 mls/hr IV Q48H [facility] Stop: 12/27/17 20:31 Last Admin: 12/19/17 20:30 Dose: 100 mls/hr Insulin Aspart (Novolog) 0 unit SC ACHS [facility] PRN Reason: Protocol Last Admin: 12/20/17 08:33 Dose: 4 unit - Labs Labs: 12/19/17 06:25 12/19/17 06:26 PT 14.1 SECONDS (9.7-12.2) H 12/17/17 11:01 INR 1.2 12/17/17 11:01 APTT 32 SECONDS (21-34) 12/18/17 04:59 - Constitutional Appears: No Acute Distress, Chronically Ill - Head Exam Head Exam: ATRAUMATIC, NORMAL INSPECTION - Eye Exam Eye Exam: EOMI, Normal appearance - Neck Exam Neck Exam: Normal Inspection. absent: Tenderness - Respiratory Exam Respiratory Exam: Clear to Ausculation Bilateral, NORMAL BREATHING PATTERN - Cardiovascular Exam Cardiovascular Exam: REGULAR RHYTHM, +S1 - GI/Abdominal Exam GI & Abdominal Exam: Soft. absent: Tenderness - Extremities Exam Extremities Exam: Normal Inspection. absent: Tenderness - Neurological Exam Neurological Exam: Awake, CN II-XII Intact - Skin Skin Exam: Dry, Warm Assessment and Plan (1) Type 2 diabetes mellitus with diabetic nephropathy Status: Acute (2) ESRD (end stage renal disease) Status: Acute (3) Metabolic acidosis Status: Acute (4) Sepsis associated with vascular access catheter Status: Acute - Assessment and Plan (Free Text) Plan: dialysis MWF Recommended AV access; pt considering Will have to return to [facility] for maintenance HD
[2017-12-20] MEDS: Cefepime IV 1 gm in Dextrose 1 GM/50 ML BAG IVPB SCH ×2 (12:26→23:11)
--- NOTE | 2017-12-20 13:53 | CP.PCM.PN ---
Subjective - Date & Time of Evaluation Date of Evaluation: 12/20/17 Time of Evaluation: 13:52 - Subjective Subjective: AFEBRILE ON DIALYSIS ABSCESS ON THE BACK WBC 21K GEN. SURGERY CONSULTED Objective - Vital Signs/Intake and Output Vital Signs (last 24 hours): Temp Pulse Resp BP Pulse Ox 98.8 F 92 H 16 139/87 100 12/20/17 12:00 12/19/17 17:24 12/19/17 17:24 12/19/17 17:25 12/19/17 16:40 Intake and Output: 12/20/17 12/20/17 11:59 23:59 Intake Total 0 350 Output Total 0 Balance 0 350 - Medications Medications: Current Medications Dextrose (Dextrose 50% Inj) 25 ml IV Q3H PRN PRN Reason: Hypoglycemia Epoetin Landon (Procrit) 10,000 unit IV MWF [facility] Heparin Sodium (Porcine) (Heparin) 5,000 units SC Q12H [facility] Last Admin: 12/20/17 09:06 Dose: Not Given Cefepime HCl (Maxipime Iv 1 Gm Premix) 1 gm in 50 mls @ 100 mls/hr IVPB Q12H [facility] PRN Reason: Protocol Last Admin: 12/20/17 12:26 Dose: 100 mls/hr Daptomycin 310 mg/ Sodium (Chloride) 100 mls @ 100 mls/hr IV Q48H [facility] Stop: 12/27/17 20:31 Last Admin: 12/19/17 20:30 Dose: 100 mls/hr Insulin Aspart (Novolog) 0 unit SC ACHS [facility] PRN Reason: Protocol Last Admin: 12/20/17 12:26 Dose: 2 unit - Labs Labs: 12/19/17 06:25 12/19/17 06:26 PT 14.1 SECONDS (9.7-12.2) H 12/17/17 11:01 INR 1.2 12/17/17 11:01 APTT 32 SECONDS (21-34) 12/18/17 04:59
[2017-12-20 15:46] LABS: ALB/GLOB RATIO 0.6 (1.0-2.1); ALT/SGPT < 6 U/L (9-52); AST/SGOT 16 U/L (14-36); BLOOD UREA NITROGEN 40 mg/dL (7-17); CALCIUM 7.8 mg/dl (8.6-10.4); GFR AFRICAN-AMERICAN 20; GFR NON-AFRICAN AMERICAN 16
[2017-12-20] MEDS ORDERED: Propofol 10 mg/ml Inj (20 ML) ONE (16:18)
[2017-12-20] MEDS ORDERED: Phenylephrine 10 mg/ml Inj ONE (16:57)
--- NOTE | 2017-12-20 22:42 | CP.PCM.PN ---
Subjective - Date & Time of Evaluation Date of Evaluation: 12/20/17 Time of Evaluation: 22:42 - Subjective Subjective: AFEBRILE, s/p or today incision and drainage lumbosacral mass by surgery. Patient tolerated procedure well. labs BUTTOCK CULTURES +VE GRPB BETA HEMOLYTIC STREPT/ & E. COLI -PANSENSITIVE Objective - Vital Signs/Intake and Output Vital Signs (last 24 hours): Temp Pulse Resp BP Pulse Ox 98.7 F 93 H 20 111/80 100 12/20/17 16:00 12/20/17 21:00 12/20/17 21:00 12/20/17 20:28 12/20/17 21:00 Intake and Output: 12/20/17 12/21/17 18:59 06:59 Intake Total 500 Output Total 0 Balance 500 - Medications Medications: Current Medications Dextrose (Dextrose 50% Inj) 25 ml IV Q3H PRN PRN Reason: Hypoglycemia Epoetin Landon (Procrit) 10,000 unit IV MWF [facility] Cefepime HCl (Maxipime Iv 1 Gm Premix) 1 gm in 50 mls @ 100 mls/hr IVPB Q12H [facility] PRN Reason: Protocol Last Admin: 12/20/17 12:26 Dose: 100 mls/hr Daptomycin 310 mg/ Sodium (Chloride) 100 mls @ 100 mls/hr IV Q48H [facility] Stop: 12/27/17 20:31 Last Admin: 12/19/17 20:30 Dose: 100 mls/hr Insulin Aspart (Novolog) 0 unit SC ACHS [facility] PRN Reason: Protocol Last Admin: 12/20/17 22:10 Dose: Not Given - Labs Labs: 12/19/17 06:25 12/20/17 15:14 PT 14.1 SECONDS (9.7-12.2) H 12/17/17 11:01 INR 1.2 12/17/17 11:01 APTT 32 SECONDS (21-34) 12/18/17 04:59 - Constitutional Appears: No Acute Distress, Cachectic, Chronically Ill - Head Exam Head Exam: NORMAL INSPECTION - Eye Exam Eye Exam: EOMI, PERRL - ENT Exam ENT Exam: Normal Oropharynx - Neck Exam Neck Exam: Normal Inspection - Respiratory Exam Respiratory Exam: Clear to Ausculation Bilateral, NORMAL BREATHING PATTERN - Cardiovascular Exam Cardiovascular Exam: REGULAR RHYTHM, +S1, +S2 - Extremities Exam Extremities Exam: Normal Capillary Refill. absent: Calf Tenderness - Back Exam Back Exam: paraspinal tenderness - Neurological Exam Neurological Exam: Awake, CN II-XII Intact - Skin Skin Exam: Normal Color, Warm Assessment and Plan (1) Sepsis Assessment & Plan: DECUBITUS WOUND CULTURES NOTED. CONTINUE iv CEFEPIME 1 G EVERY 12 HOURLY. 12/17/17 CONTINUE iv DAPTOMYCIN 4 BETA-HEMOLYTIC GROUP B STREPTOCOCCUS.12/17/17 LOCAL WOUND CARE Status: Acute (2) Decubitus ulcers Assessment & Plan: S/P INCISION AND DRAINAGE OF THE LUMBOSACRAL ULCER. PATIENT ON ANTIBIOTICS. AWAIT REPEAT DEEP CULTURES. tHREE-PHASE BONE SCAN LUMBOSACRAL SPINE TO RULE OUT UNDERLYING OSTEOMYELITIS IN PROGRESS. Status: Acute (3) Metabolic acidosis Status: Acute (4) ESRD (end stage renal disease) Assessment & Plan: ON HEMODIALYSIS AND MWF. pATIENT FOR AV -FISTULA PER VASCULAR SURGERY. Status: Acute (5) Type 2 diabetes mellitus with diabetic nephropathy Status: Acute (6) PVD (peripheral vascular disease) Status: Acute
--- NOTE | 2017-12-21 04:28 | OP ---
PROCEDURE DATE: 12/20/2017 PREOPERATIVE DIAGNOSIS: Infected sacral mass, underlying abscess. POSTOPERATIVE DIAGNOSIS: Infected sacral mass, underlying abscess. PROCEDURE PERFORMED: Drainage of infected sacral mass and drainage of underlying retroperitoneal abscess. SURGEON: Bora Alejo MD ANESTHESIA: General. BLOOD LOSS: 30 mL. POSTOPERATIVE CONDITION: Stable. INDICATIONS FOR SURGERY: This is a 37-year-old female with an infected sacral mass and an underlying abscess, taken to the OR for definitive therapy. DESCRIPTION OF PROCEDURE: The patient was taken to the operating room, general anesthesia was administered. She was placed in left lateral decubitus position. The sacral area and buttocks were prepped and draped. Generous elliptical incision was made surrounding the mass. It was dissected into the presacral space, completely removed. Bleeding was controlled using a Bovie. A large underlying abscess was drained. Multiple cultures were taken. The wound was irrigated with saline and packed with wet saline gauze. The patient tolerated the procedure well. Returned to recovery room in stable condition. Bora Alejo MD
[2017-12-21] MEDS: (Novolog) Insulin Aspart, Recombinant 100 u/ml 10 ml vial SC SCH ×4 (07:48→22:00)
[2017-12-21] MEDS ORDERED: EPOETIN ALFA 10,000 UNIT/ML ML IV SCH (09:00)
[2017-12-21] MEDS: Cefepime IV 1 gm in Dextrose 1 GM/50 ML BAG IVPB SCH (10:53)
[2017-12-21] MEDS ORDERED: Papaverine Hydrochloride 30 mg/ml (2ml) ONE (11:20)
[2017-12-21] MEDS ORDERED: HEPARIN-NS 5,000 UNITS/500 ML 5,000 UNIT/500 ML BAG IV ONE (11:21)
[2017-12-21] MEDS ORDERED: Lidocaine Hydrochloride 0 ML INJ ONE (11:21)
[2017-12-21] MEDS ORDERED: Midazolam 2 MG/2 ML VIAL ONE (12:02)
[2017-12-21] MEDS ORDERED: Propofol 10 mg/ml Inj (20 ML) ONE (12:02)
--- NOTE | 2017-12-21 13:31 | VASCLAB ---
PROCEDURE: Upper Extremity Venous Duplex Exam HISTORY: AVF creation on Sunday PRIORS: None. TECHNIQUE: Bilateral upper extremity, internal jugular, subclavian, axillary, brachial, ulnar, radial, basilic and upper cephalic veins were evaluated. Flow was assessed with color Doppler, compressibility, assessment of phasic flow and augmentation response. Report prepared by development technologist. FINDINGS: RIGHT: 1. Internal Jugular Vein: Compressibility - Fully compressible: Thrombus - None : Flow - Phasic 2. Subclavian Vein:Compressibility - Fully compressible: Thrombus - None : Flow - Phasic 3. Axillary Vein: Compressibility - Fully compressible: Thrombus - None 4. Brachial Vein: Compressibility - Fully compressible: Thrombus - None 5. Ulnar Vein:Compressibility - Fully compressible: Thrombus - None 6. Radial Vein:Compressibility - Fully compressible: Thrombus - None 7. Cephalic Vein: Compressibility - Fully compressible: thrombus - None 7.1. Upper Arm: Proximal Diameter: 0.27cm. Mid Diameter: 0.20cm. Distal Diameter: 0.19cm. 7.2. Forearm: Proximal Diameter: 0.18cm. Mid Diameter:0.13cm. Distal Diameter: 0.12cm 8. Basilic Vein:Compressibility - Fully compressible: thrombus - None 8.1. Upper Arm:Proximal Diameter: 0.41cm. Mid Diameter: 0.35cm. Distal Diameter: 0.40cm. Antecubital Fossa Diameter: 0.45cm 8.2. Forearm: Proximal Diameter: 0.23cm. Mid Diameter:0.21cm. Distal Diameter: 0.13cm. LEFT: 1. Internal Jugular Vein: Compressibility - Fully compressible: Thrombus - None : Flow - Phasic 2. Subclavian Vein:Compressibility - Fully compressible: Thrombus - None : Flow - Phasic 3. Axillary Vein: Compressibility - Fully compressible: Thrombus - None 4. Brachial Vein: Compressibility - Fully compressible: Thrombus - None 5. Ulnar Vein:Compressibility - Fully compressible: Thrombus - None 6. Radial Vein:Compressibility - Fully compressible: Thrombus - None 7. Cephalic Vein: Compressibility - Fully compressible: thrombus - None 7.1. Upper Arm: Proximal Diameter: 0.28cm. Mid Diameter: 0.11cm. Distal Diameter: 0.14cm. Antecubital Fossa Diameter: 0.18cm 7.2. Forearm: Proximal Diameter: 0.16cm. Mid Diameter:0.17cm. Distal Diameter: 0.19cm 8. Basilic Vein:Compressibility - Fully compressible: thrombus - None 8.1. Upper Arm:Proximal Diameter: 0.50cm. Mid Diameter: 0.61cm. Distal Diameter: 0.50cm. Antecubital Fossa Diameter: 0.50cm 8.2. Forearm: Proximal Diameter: 0.30cm. Mid Diameter:0.31cm. Distal Diameter: 0.28cm. OTHER FINDINGS: Right: None. Left: None. IMPRESSION: Right: Diameter measurements of the right cephalic vein is measured between 0.12 cm and 0.19 cm and basilic vein is measured between 0.13 cm and 0.45 cm. Left: Diameter measurements of the left cephalic vein is measured between 0.11 cm and 0.19 cm and basilic vein is measured between 0.28cm and 0.61cm.
[2017-12-21] MEDS ORDERED: Oxycodone/Acetaminophen 5/325 mg Tab PO PRN (13:48)
--- NOTE | 2017-12-21 13:48 | PCM.SURG1 ---
Surgeon's Initial Post Op Note - Surgeon's Notes Surgeon: Dr. Villalba Client Specialist: Dr. Mooney PGY3 Type of Anesthesia: General LMA Pre-Operative Diagnosis: ESRD Operative Findings: good hemostasis, patent AVF Post-Operative Diagnosis: ESRD Operation Performed: left arm brachio-basilic AVF creation Specimen/Specimens Removed: none Estimated Blood Loss: EBL {In ML}: 10 Blood Products Given: N/A Drains Used: No Drains Post-Op Condition: Good Date of Surgery/Procedure: 12/21/17 Time of Surgery/Procedure: 13:47
--- NOTE | 2017-12-21 13:58 | CP.PCM.PN ---
Subjective - Date & Time of Evaluation Date of Evaluation: 12/21/17 Time of Evaluation: 13:55 - Subjective Subjective: s/p AV fistula placememt Previously s/p I and D of buttocks abscess For dialysis soon BP stable Iron stores adequate- on EPO On IV ABs Objective - Vital Signs/Intake and Output Vital Signs (last 24 hours): Temp Pulse Resp BP Pulse Ox 98.3 F 92 H 18 112/79 99 12/21/17 08:00 12/21/17 09:00 12/21/17 11:30 12/21/17 08:28 12/21/17 11:30 Intake and Output: 12/21/17 12/21/17 06:59 18:59 Intake Total 0 50 Output Total 0 Balance 0 50 - Medications Medications: Current Medications Dextrose (Dextrose 50% Inj) 25 ml IV Q3H PRN PRN Reason: Hypoglycemia Epoetin Landon (Procrit) 10,000 unit IV MWF [facility] Cefepime HCl (Maxipime Iv 1 Gm Premix) 1 gm in 50 mls @ 100 mls/hr IVPB Q12H [facility] PRN Reason: Protocol Daptomycin 310 mg/ Sodium (Chloride) 100 mls @ 100 mls/hr IV Q48H [facility] Stop: 12/27/17 20:31 Insulin Aspart (Novolog) 0 unit SC ACHS [facility] PRN Reason: Protocol Last Admin: 12/21/17 11:37 Dose: Not Given Oxycodone/Acetaminophen (Percocet 5/325 Mg Tab) 1 tab PO Q4H PRN PRN Reason: Pain, moderate (4-7) Stop: 12/24/17 13:49 - Labs Labs: 12/19/17 06:25 12/20/17 15:14 PT 14.1 SECONDS (9.7-12.2) H 12/17/17 11:01 INR 1.2 12/17/17 11:01 APTT 32 SECONDS (21-34) 12/18/17 04:59 - Constitutional Appears: No Acute Distress, Chronically Ill - Head Exam Head Exam: ATRAUMATIC, NORMAL INSPECTION - Eye Exam Eye Exam: EOMI, Normal appearance - Neck Exam Neck Exam: Normal Inspection. absent: Tenderness - Cardiovascular Exam Cardiovascular Exam: REGULAR RHYTHM, +S1 - GI/Abdominal Exam GI & Abdominal Exam: Soft. absent: Tenderness - Extremities Exam Extremities Exam: Normal Inspection. absent: Tenderness - Neurological Exam Neurological Exam: Awake, CN II-XII Intact - Skin Skin Exam: Dry, Warm Assessment and Plan (1) Type 2 diabetes mellitus with diabetic nephropathy Status: Acute (2) ESRD (end stage renal disease) Status: Acute (3) Metabolic acidosis Status: Acute (4) Sepsis associated with vascular access catheter Status: Acute (5) Decubitus ulcers Status: Acute - Assessment and Plan (Free Text) Plan: dialysis now, then MWF IV ABs Will need outpt dialysis placement
--- NOTE | 2017-12-21 23:27 | CP.PCM.PN ---
Subjective - Date & Time of Evaluation Date of Evaluation: 12/21/17 Time of Evaluation: 23:27 - Subjective Subjective: AFEBRILE VS NOTED. S/P AV FISTULA TODAY. PT FOR HD TODAY. C/O SORENESS BACK. Objective - Vital Signs/Intake and Output Vital Signs (last 24 hours): Temp Pulse Resp BP Pulse Ox 97.5 F L 87 18 121/81 98 12/21/17 20:00 12/21/17 20:00 12/21/17 20:00 12/21/17 18:45 12/21/17 20:00 Intake and Output: 12/21/17 12/22/17 18:59 06:59 Intake Total 500 Output Total 0 Balance 500 - Medications Medications: Current Medications Dextrose (Dextrose 50% Inj) 25 ml IV Q3H PRN PRN Reason: Hypoglycemia Epoetin Landon (Procrit) 10,000 unit IV MWF [facility] Last Admin: 12/21/17 15:40 Dose: 10,000 unit Cefepime HCl (Maxipime Iv 1 Gm Premix) 1 gm in 50 mls @ 100 mls/hr IVPB Q12H [facility] PRN Reason: Protocol Daptomycin 310 mg/ Sodium (Chloride) 100 mls @ 100 mls/hr IV Q48H [facility] Stop: 12/27/17 20:31 Insulin Aspart (Novolog) 0 unit SC ACHS [facility] PRN Reason: Protocol Last Admin: 12/21/17 16:44 Dose: 2 unit Oxycodone/Acetaminophen (Percocet 5/325 Mg Tab) 1 tab PO Q4H PRN PRN Reason: Pain, moderate (4-7) Stop: 12/24/17 13:49 - Labs Labs: 12/19/17 06:25 12/20/17 15:14 PT 14.1 SECONDS (9.7-12.2) H 12/17/17 11:01 INR 1.2 12/17/17 11:01 APTT 32 SECONDS (21-34) 12/18/17 04:59 - Constitutional Appears: No Acute Distress, Cachectic, Chronically Ill - Head Exam Head Exam: NORMAL INSPECTION - Eye Exam Eye Exam: EOMI, PERRL - ENT Exam ENT Exam: Normal Oropharynx - Neck Exam Neck Exam: Normal Inspection - Respiratory Exam Respiratory Exam: Decreased Breath Sounds - Cardiovascular Exam Cardiovascular Exam: REGULAR RHYTHM, +S1, +S2 - GI/Abdominal Exam GI & Abdominal Exam: Soft, Normal Bowel Sounds - Extremities Exam Extremities Exam: absent: Calf Tenderness, Pedal Edema - Neurological Exam Neurological Exam: Awake - Psychiatric Exam Psychiatric exam: Normal Mood - Skin Skin Exam: Warm (SACRAL WOUND IN DRESSING.) Assessment and Plan (1) Sepsis Status: Acute (2) Decubitus ulcers Assessment & Plan: BUTTOCK CULTURES +VE GRP B BETA HEMOLYTIC STREP & E. COLI -PANSENSITIVE CONTINUE iv CEFEPIME 1 G EVERY 12 HOURLY. 12/17/17 CONTINUE iv DAPTOMYCIN 4 BETA-HEMOLYTIC GROUP B STREPTOCOCCUS.12/17/17 LOCAL WOUND CARE PER SURGERY. Status: Acute (3) Metabolic acidosis Status: Acute (4) ESRD (end stage renal disease) Assessment & Plan: ON HEMODIALYSIS AND MWF. pATIENT FOR AV -FISTULA TODAY 12/21/17 PER VASCULAR SURGERY. Status: Acute (5) Type 2 diabetes mellitus with diabetic nephropathy Status: Acute (6) PVD (peripheral vascular disease) Status: Acute
--- NOTE | 2017-12-21 23:30 | OP ---
PROCEDURE DATE: 12/21/2017 PREOPERATIVE DIAGNOSIS: Renal failure. POSTOPERATIVE DIAGNOSIS: Renal failure. PROCEDURE: Brachiobasilic fistula, left elbow. SURGEON: Devang Villalba Jr., MD RN HOUSE SUPERVISOR: Dr. Rodriguez. ANESTHESIOLOGIST: . TYPE OF ANESTHESIA: General anesthesia LMA. ESTIMATED BLOOD LOSS: Less than 20 mL. INDICATIONS: The patient is a young woman with renal insufficiency, presently on dialysis by means of catheter. OPERATIVE FINDINGS: We created a brachiobasilic fistula at the elbow. There is a palpable pulse at the wrist. There was excellent flow through the fistula at the end of the procedure. PROCEDURE: Vein mapping was carried out preoperatively and only showed a cephalic vein, although somewhat thick walled that was present. We then created a end-to-side fistula using the side of the brachial artery to anastomose to the end of the basilic vein. This was done using loop magnification, heparin anticoagulation and loop control. After completion of the anastomosis, there was satisfactory hemostasis. We then closed the wound with 5-0 nylon sutures and closed the skin with 5-0 nylon sutures too. Blood loss was less than 20 mL. Operation carried out; brachiobasilic fistula, left elbow. Most likely, this will require mobilization in the future. Devang Villalba Jr., MD
--- NOTE | 2017-12-21 23:57 | CP.PCM.PN ---
Subjective - Date & Time of Evaluation Date of Evaluation: 12/22/17 Time of Evaluation: 14:50 - Subjective Subjective: Patient currently is afebrile mostly bedbound and answers only a few questions. Patient is on IV antibiotics for decubital ulcer and abscess. Patient is for IV shunt. Objective - Vital Signs/Intake and Output Vital Signs (last 24 hours): Temp Pulse Resp BP Pulse Ox 97.5 F L 87 18 121/81 98 12/21/17 20:00 12/21/17 20:00 12/21/17 20:00 12/21/17 18:45 12/21/17 20:00 Intake and Output: 12/21/17 12/21/17 11:59 23:59 Intake Total 450 50 Output Total 0 Balance 450 50 - Medications Medications: Current Medications Dextrose (Dextrose 50% Inj) 25 ml IV Q3H PRN PRN Reason: Hypoglycemia Epoetin Landon (Procrit) 10,000 unit IV MWF [facility] Last Admin: 12/21/17 15:40 Dose: 10,000 unit Cefepime HCl (Maxipime Iv 1 Gm Premix) 1 gm in 50 mls @ 100 mls/hr IVPB Q12H [facility] PRN Reason: Protocol Daptomycin 310 mg/ Sodium (Chloride) 100 mls @ 100 mls/hr IV Q48H [facility] Stop: 12/27/17 20:31 Insulin Aspart (Novolog) 0 unit SC ACHS [facility] PRN Reason: Protocol Last Admin: 12/21/17 16:44 Dose: 2 unit Oxycodone/Acetaminophen (Percocet 5/325 Mg Tab) 1 tab PO Q4H PRN PRN Reason: Pain, moderate (4-7) Stop: 12/24/17 13:49 - Labs Labs: 12/19/17 06:25 12/20/17 15:14 PT 14.1 SECONDS (9.7-12.2) H 12/17/17 11:01 INR 1.2 12/17/17 11:01 APTT 32 SECONDS (21-34) 12/18/17 04:59
[2017-12-22 06:44] LABS: HEMOGLOBIN 8.1 g/dL (11.0-16.0); MEAN CELL VOLUME 83.7 fL (81.0-99.0); MEAN CORPUSCULAR HEMOGLOBIN 27.4 pg (27.0-31.0); MEAN CORPUSCULAR HGB CONC 32.7 g/dL (33.0-37.0); MEAN PLATELET VOLUME 7.8 fL (7.2-11.7); RBC 2.95 Mil/uL (3.80-5.20); RED CELL DISTRIBUTION WIDTH 16.4 % (11.5-14.5)
--- NOTE | 2017-12-22 07:09 | CP.PCM.PN ---
Subjective - Date & Time of Evaluation Date of Evaluation: 12/22/17 Time of Evaluation: 07:07 - Subjective Subjective: Vascular surgery progress note for Dr. Sony Madsen, PGY-1 Pt S & E at bedside at 0700 Pt without complaints overnight. Denies N & V, F & C, numbness or tingling of hand. Tolerating diet. Objective - Vital Signs/Intake and Output Vital Signs (last 24 hours): Temp Pulse Resp BP Pulse Ox 97.8 F 98 H 18 127/84 98 12/22/17 04:00 12/22/17 04:00 12/22/17 04:00 12/22/17 00:00 12/22/17 04:00 Intake and Output: 12/22/17 12/22/17 06:59 18:59 Intake Total 250 Output Total 1 Balance 249 - Medications Medications: Current Medications Dextrose (Dextrose 50% Inj) 25 ml IV Q3H PRN PRN Reason: Hypoglycemia Epoetin Landon (Procrit) 10,000 unit IV MWF [facility] Last Admin: 12/21/17 15:40 Dose: 10,000 unit Cefepime HCl (Maxipime Iv 1 Gm Premix) 1 gm in 50 mls @ 100 mls/hr IVPB Q12H [facility] PRN Reason: Protocol Daptomycin 310 mg/ Sodium (Chloride) 100 mls @ 100 mls/hr IV Q48H [facility] Stop: 12/27/17 20:31 Insulin Aspart (Novolog) 0 unit SC ACHS [facility] PRN Reason: Protocol Last Admin: 12/21/17 22:00 Dose: Not Given Oxycodone/Acetaminophen (Percocet 5/325 Mg Tab) 1 tab PO Q4H PRN PRN Reason: Pain, moderate (4-7) Stop: 12/24/17 13:49 Last Admin: 12/22/17 00:47 Dose: 1 tab - Labs Labs: 12/22/17 06:39 12/20/17 15:14 PT 14.1 SECONDS (9.7-12.2) H 12/17/17 11:01 INR 1.2 12/17/17 11:01 APTT 32 SECONDS (21-34) 12/18/17 04:59 - Constitutional Appears: Non-toxic, No Acute Distress - Head Exam Head Exam: ATRAUMATIC, NORMAL INSPECTION, NORMOCEPHALIC - Eye Exam Eye Exam: EOMI, Normal appearance - ENT Exam ENT Exam: Mucous Membranes Moist, Normal Exam - Neck Exam Neck Exam: Full ROM, Normal Inspection - Respiratory Exam Respiratory Exam: NORMAL BREATHING PATTERN - Cardiovascular Exam Cardiovascular Exam: REGULAR RHYTHM, +S1, +S2 - GI/Abdominal Exam GI & Abdominal Exam: Soft. absent: Tenderness - Extremities Exam Additional comments: LUE w/dressing in place over antecubital fossa- clean/dry/intact - Neurological Exam Neurological Exam: Alert, Awake, CN II-XII Intact, Oriented x3 - Psychiatric Exam Psychiatric exam: Normal Affect, Normal Mood - Skin Skin Exam: Dry, Intact, Normal Color, Warm Assessment and Plan - Assessment and Plan (Free Text) Assessment: 37F POD#1 s/p LUE AVF creation Plan: Cont HD via permacath Awaiting AVF maturation prior to use No further vascular surgical intervention required Please re-consult as needed Further care as per primary team LEATHA attending Tena, PGY-1
[2017-12-22 07:22] LABS: ALB/GLOB RATIO 0.6 (1.0-2.1); ALBUMIN 2.9 g/dL (3.5-5.0); ALT/SGPT < 6 U/L (9-52); AST/SGOT 13 U/L (14-36); BLOOD UREA NITROGEN 27 mg/dL (7-17); CALCIUM 7.6 mg/dl (8.6-10.4); GFR AFRICAN-AMERICAN 25; GFR NON-AFRICAN AMERICAN 21
[2017-12-22] MEDS: (Novolog) Insulin Aspart, Recombinant 100 u/ml 10 ml vial SC SCH ×4 (07:45→21:53)
[2017-12-22] MEDS: (Lantus) Insulin Glargine, Recombinant SC SCH ×2 (08:45→22:31)
--- NOTE | 2017-12-22 10:20 | CP.PCM.PN ---
Subjective - Date & Time of Evaluation Date of Evaluation: 12/22/17 Time of Evaluation: 10:17 - Subjective Subjective: Notes reviewed Care reviewed with patient and icu nurse at bedside No overnight events No new complaints No pain Tolerating diet Reports no events with HD 12/21 Does not elaborate history - answers with minimal detail ROS: 10 point negative other than stated above Objective - Vital Signs/Intake and Output Vital Signs (last 24 hours): Temp Pulse Resp BP Pulse Ox 97.8 F 100 H 18 106/62 98 12/22/17 04:00 12/22/17 04:00 12/22/17 04:00 12/22/17 04:00 12/22/17 04:00 Intake and Output: 12/22/17 12/22/17 06:59 18:59 Intake Total 250 Output Total 1 Balance 249 - Medications Medications: Current Medications Dextrose (Dextrose 50% Inj) 25 ml IV Q3H PRN PRN Reason: Hypoglycemia Epoetin L[facility] (Procrit) 10,000 unit IV MWF [facility] Last Admin: 12/21/17 15:40 Dose: 10,000 unit Cefepime HCl (Maxipime Iv 1 Gm Premix) 1 gm in 50 mls @ 100 mls/hr IVPB Q12H [facility] PRN Reason: Protocol Daptomycin 310 mg/ Sodium (Chloride) 100 mls @ 100 mls/hr IV Q48H [facility] Stop: 12/27/17 20:31 Insulin Aspart (Novolog) 0 unit SC ACHS [facility] PRN Reason: Protocol Last Admin: 12/22/17 07:45 Dose: 12 unit Insulin Glargine (Lantus) 20 unit SC HS [facility] Last Admin: 12/22/17 08:45 Dose: 20 u Oxycodone/Acetaminophen (Percocet 5/325 Mg Tab) 1 tab PO Q4H PRN PRN Reason: Pain, moderate (4-7) Stop: 12/24/17 13:49 Last Admin: 12/22/17 00:47 Dose: 1 tab - Labs Labs: 12/22/17 06:39 12/22/17 06:38 PT 14.1 SECONDS (9.7-12.2) H 12/17/17 11:01 INR 1.2 12/17/17 11:01 APTT 32 SECONDS (21-34) 12/18/17 04:59 - Constitutional Appears: Non-toxic, No Acute Distress - Head Exam Head Exam: ATRAUMATIC, NORMAL INSPECTION - Eye Exam Eye Exam: EOMI, Normal appearance - ENT Exam ENT Exam: Mucous Membranes Moist, Normal Oropharynx - Respiratory Exam Respiratory Exam: Clear to Ausculation Bilateral. absent: Rales, Rhonchi - Cardiovascular Exam Cardiovascular Exam: +S1, +S2. absent: Rubs - GI/Abdominal Exam GI & Abdominal Exam: Soft, Normal Bowel Sounds - Extremities Exam Extremities Exam: absent: Joint Swelling, Pedal Edema, Tenderness - Neurological Exam Neurological Exam: Alert, Awake - Psychiatric Exam Psychiatric exam: Depressed, Flat Affect - Skin Skin Exam: Dry, Intact Assessment and Plan (1) ESRD (end stage renal disease) Status: Acute (2) Metabolic acidosis Status: Acute (3) Type 2 diabetes mellitus with diabetic nephropathy Status: Acute (4) Anemia Status: Acute (5) Sepsis Status: Acute - Assessment and Plan (Free Text) Plan: Maintain dialysis schedule, next treatment 5/5 Monitor hypotension Abx as ordered Continue current care
--- NOTE | 2017-12-22 12:24 | CP.PCM.PN ---
Subjective - Date & Time of Evaluation Date of Evaluation: 12/22/17 Time of Evaluation: 12:22 - Subjective Subjective: PATIENT IS NOT ANSWERING TO THE QUESTIONS. oVERNIGHT BLOOD SUGAR HAS GONE UP PATIENT CURRENTLY NOW IS ON lANTUS. oN iv ANTIBIOTICS FOR SACRAL WOUND ABSCESS. av SHUNT PLACED. cONTINUE PRESENT MANAGEMENT. Objective - Vital Signs/Intake and Output Vital Signs (last 24 hours): Temp Pulse Resp BP Pulse Ox 97.8 F 100 H 18 106/62 98 12/22/17 04:00 12/22/17 04:00 12/22/17 04:00 12/22/17 04:00 12/22/17 04:00 Intake and Output: 12/22/17 12/22/17 11:59 23:59 Intake Total 250 Output Total 1 Balance 249 - Medications Medications: Current Medications Dextrose (Dextrose 50% Inj) 25 ml IV Q3H PRN PRN Reason: Hypoglycemia Epoetin Landon (Procrit) 10,000 unit IV MWF [facility] Last Admin: 12/21/17 15:40 Dose: 10,000 unit Cefepime HCl (Maxipime Iv 1 Gm Premix) 1 gm in 50 mls @ 100 mls/hr IVPB Q12H [facility] PRN Reason: Protocol Daptomycin 310 mg/ Sodium (Chloride) 100 mls @ 100 mls/hr IV Q48H [facility] Stop: 12/27/17 20:31 Insulin Aspart (Novolog) 0 unit SC ACHS [facility] PRN Reason: Protocol Last Admin: 12/22/17 07:45 Dose: 12 unit Insulin Glargine (Lantus) 20 unit SC HS [facility] Last Admin: 12/22/17 08:45 Dose: 20 u Oxycodone/Acetaminophen (Percocet 5/325 Mg Tab) 1 tab PO Q4H PRN PRN Reason: Pain, moderate (4-7) Stop: 12/24/17 13:49 Last Admin: 12/22/17 00:47 Dose: 1 tab - Labs Labs: 12/22/17 06:39 12/22/17 06:38 PT 14.1 SECONDS (9.7-12.2) H 12/17/17 11:01 INR 1.2 12/17/17 11:01 APTT 32 SECONDS (21-34) 12/18/17 04:59
[2017-12-22] MEDS: Dextrose 50% SYRINGE Inj (50 ml) IV PRN (21:52)
[2017-12-22] MEDS: Cefepime IV 1 gm in Dextrose 1 GM/50 ML BAG IVPB SCH (22:34)
[2017-12-23] MEDS: Dextrose 50% SYRINGE Inj (50 ml) IV PRN (07:44)
[2017-12-23] MEDS: (Novolog) Insulin Aspart, Recombinant 100 u/ml 10 ml vial SC SCH ×4 (08:04→21:22)
[2017-12-23] MEDS: Cefepime IV 1 gm in Dextrose 1 GM/50 ML BAG IVPB SCH ×2 (10:03→23:00)
--- NOTE | 2017-12-23 15:09 | CP.PCM.PN ---
Subjective - Date & Time of Evaluation Date of Evaluation: 12/23/17 Time of Evaluation: 15:07 - Subjective Subjective: patient's blood sugar is falling, in the 40s requiring dextrose IV. Patient has received Lantus yesterday, his Lantus is discontinued. The wound is growing E. coli and Enterobacter faecalis. Continue IV antibiotics and dialysis. Objective - Vital Signs/Intake and Output Vital Signs (last 24 hours): Temp Pulse Resp BP Pulse Ox 98.1 F 88 20 121/73 100 12/23/17 07:25 12/23/17 07:25 12/23/17 07:25 12/23/17 07:25 12/23/17 07:25 Intake and Output: 12/23/17 12/23/17 11:59 23:59 Intake Total 400 Balance 400 - Medications Medications: Current Medications Dextrose (Dextrose 50% Inj) 25 ml IV Q3H PRN PRN Reason: Hypoglycemia Last Admin: 12/23/17 07:44 Dose: 25 ml Epoetin L[facility] (Procrit) 10,000 unit IV MWF [facility] Last Admin: 12/21/17 15:40 Dose: 10,000 unit Cefepime HCl (Maxipime Iv 1 Gm Premix) 1 gm in 50 mls @ 100 mls/hr IVPB Q12H [facility] PRN Reason: Protocol Last Admin: 12/23/17 10:03 Dose: 100 mls/hr Daptomycin 310 mg/ Sodium (Chloride) 100 mls @ 100 mls/hr IV Q48H [facility] Stop: 12/27/17 20:31 Last Admin: 12/22/17 19:34 Dose: 100 mls/hr Dextrose (Dextrose 5% In Water) 250 mls @ 100 mls/hr IV .Q2H30M [facility] Stop: 12/23/17 19:59 Insulin Aspart (Novolog) 0 unit SC ACHS [facility] PRN Reason: Protocol Last Admin: 12/23/17 12:13 Dose: Not Given Oxycodone/Acetaminophen (Percocet 5/325 Mg Tab) 1 tab PO Q4H PRN PRN Reason: Pain, moderate (4-7) Stop: 12/24/17 13:49 Last Admin: 12/22/17 00:47 Dose: 1 tab - Labs Labs: 12/22/17 06:39 12/22/17 06:38 PT 14.1 SECONDS (9.7-12.2) H 12/17/17 11:01 INR 1.2 12/17/17 11:01 APTT 32 SECONDS (21-34) 12/18/17 04:59
[2017-12-24] MEDS: (Novolog) Insulin Aspart, Recombinant 100 u/ml 10 ml vial SC SCH ×4 (08:04→21:27)
--- NOTE | 2017-12-24 08:20 | NM ---
PROCEDURE: Three-phase Bone Scan HISTORY: R/O osteo lumbosacral spine COMPARISON: 12/18/2017 lumbar spine radiographs TECHNIQUE: Following administration of 24.2 miCu of Tc MDP multiplanar whole body images were obtained. FINDINGS: Flow component: Normal Blood pool component: Unremarkable Delayed images at 3:00: No focal abnormalities Other findings: None. IMPRESSION: Normal three-phase bone scan
[2017-12-24 09:17] LABS: BASO # 0.1 K/uL (0.0-0.2); BASO % 0.5 % (0.0-2.0); EOS # 0.2 K/uL (0.0-0.7); EOS % 1.3 % (0.0-4.0); HEMOGLOBIN 7.5 g/dL (11.0-16.0); LYMPH # 1.4 K/uL (1.0-4.3); LYMPH % 7.7 % (20.0-40.0); MEAN CELL VOLUME 82.8 fL (81.0-99.0); MEAN CORPUSCULAR HEMOGLOBIN 27.1 pg (27.0-31.0); MEAN CORPUSCULAR HGB CONC 32.7 g/dL (33.0-37.0); MEAN PLATELET VOLUME 7.2 fL (7.2-11.7); MONO # 1.4 K/uL (0.0-0.8); MONO % 7.5 % (0.0-10.0); NEUT # 15.6 K/uL (1.8-7.0); NRBC % 0.1 % (0.0-2.0); PLATELET COUNT 232 K/uL (130-400); RBC 2.79 Mil/uL (3.80-5.20); RED CELL DISTRIBUTION WIDTH 16.6 % (11.5-14.5); WHITE BLOOD COUNT 18.8 K/uL (4.8-10.8)
[2017-12-24 09:32] LABS: CALCIUM 7.5 mg/dl (8.6-10.4)
[2017-12-24 09:39] LABS: ANISOCYTOSIS SLIGHT; HYPOCHROMIC SLIGHT; LYMPHOCYTE 8 % (20-40); MONOCYTE 9 % (0-10); NEUTROPHIL 83 % (50-75); PLATELET ESTIMATE NORMAL (NORMAL); POIKILOCYTOSIS SLIGHT; TOTAL CELLS COUNTED 100
[2017-12-24 09:40] LABS: LARGE PLATELETS PRESENT; TARGET CELLS SLIGHT; TEARDROP CELLS SLIGHT
--- NOTE | 2017-12-24 12:11 | CP.PCM.PN ---
Subjective - Date & Time of Evaluation Date of Evaluation: 12/24/17 Time of Evaluation: 12:08 - Subjective Subjective: seen at dialysis to receive 1 unit prbc blood transfusion now UF 1000ml- tolerating ok no n,v f, diarrhea AV f with bruit dialysis outpt arrangements being made Objective - Vital Signs/Intake and Output Vital Signs (last 24 hours): Temp Pulse Resp BP Pulse Ox 97.5 F L 89 18 140/93 H 100 12/24/17 11:39 12/24/17 11:39 12/24/17 11:39 12/24/17 11:50 12/24/17 09:05 Intake and Output: 12/24/17 12/24/17 06:59 18:59 Intake Total 630 0 Balance 630 0 - Medications Medications: Current Medications Dextrose (Dextrose 50% Inj) 25 ml IV Q3H PRN PRN Reason: Hypoglycemia Last Admin: 12/23/17 07:44 Dose: 25 ml Epoetin [facility] (Procrit) 10,000 unit IV MWF [facility] Heparin Sodium (Porcine) (Heparin) 3,700 units IVP MWF [facility] Stop: 12/28/17 09:01 Cefepime HCl (Maxipime Iv 1 Gm Premix) 1 gm in 50 mls @ 100 mls/hr IVPB Q12H [facility] PRN Reason: Protocol Last Admin: 12/23/17 23:00 Dose: 100 mls/hr Daptomycin 310 mg/ Sodium (Chloride) 100 mls @ 100 mls/hr IV Q48H [facility] Stop: 12/27/17 20:31 Last Admin: 12/22/17 19:34 Dose: 100 mls/hr Insulin Aspart (Novolog) 0 unit SC ACHS [facility] PRN Reason: Protocol Last Admin: 12/24/17 11:41 Dose: Not Given Oxycodone/Acetaminophen (Percocet 5/325 Mg Tab) 1 tab PO Q4H PRN PRN Reason: Pain, moderate (4-7) Stop: 12/24/17 13:49 Last Admin: 12/22/17 00:47 Dose: 1 tab - Labs Labs: 12/24/17 09:09 12/24/17 09:09 PT 14.1 SECONDS (9.7-12.2) H 12/17/17 11:01 INR 1.2 12/17/17 11:01 APTT 32 SECONDS (21-34) 12/18/17 04:59 - Constitutional Appears: No Acute Distress, Chronically Ill - Head Exam Head Exam: ATRAUMATIC, NORMAL INSPECTION - Eye Exam Eye Exam: EOMI. absent: Normal appearance - Neck Exam Neck Exam: Tenderness. absent: Normal Inspection - Respiratory Exam Respiratory Exam: Clear to Ausculation Bilateral, NORMAL BREATHING PATTERN - Cardiovascular Exam Cardiovascular Exam: REGULAR RHYTHM, +S1 - GI/Abdominal Exam GI & Abdominal Exam: Soft. absent: Tenderness - Extremities Exam Extremities Exam: Normal Inspection. absent: Tenderness - Neurological Exam Neurological Exam: Alert, CN II-XII Intact - Skin Skin Exam: Dry, Warm Assessment and Plan (1) Type 2 diabetes mellitus with diabetic nephropathy Status: Acute (2) ESRD (end stage renal disease) Status: Acute (3) Metabolic acidosis Status: Acute (4) Sepsis associated with vascular access catheter Status: Acute (5) Decubitus ulcers Status: Acute - Assessment and Plan (Free Text) Plan: continue IV ABs dialysis MWF await maturation AV access referral for outpt HD being made
[2017-12-24] MEDS: Epoetin Alfa 10,000 unit/ml Dialysis IV SCH (12:12)
[2017-12-24] MEDS: Cefepime IV 1 gm in Dextrose 1 GM/50 ML BAG IVPB SCH ×2 (12:56→13:25)
--- NOTE | 2017-12-24 13:50 | CP.PCM.PN ---
<Ching Arreguin N - Last Filed: 12/24/17 13:48> Subjective - Date & Time of Evaluation Date of Evaluation: 12/24/17 Time of Evaluation: 13:48 - Subjective Subjective: Patient's hemoglobin dropped to 7.5 g. 2 units of packed cells ordered patient has received 1 unit of packed cells. Patient is afebrile with WBC is 18.3. Decubitus ulcer with absc I&D on IV antibiotics. Objective - Vital Signs/Intake and Output Vital Signs (last 24 hours): Temp Pulse Resp BP Pulse Ox 97.6 F 88 18 139/91 H 100 12/24/17 12:15 12/24/17 12:15 12/24/17 12:15 12/24/17 12:15 12/24/17 12:15 Intake and Output: 12/24/17 12/24/17 11:59 23:59 Intake Total 480 355 Balance 480 355 - Medications Medications: Current Medications Dextrose (Dextrose 50% Inj) 25 ml IV Q3H PRN PRN Reason: Hypoglycemia Last Admin: 12/23/17 07:44 Dose: 25 ml Epoetin [facility] (Procrit) 10,000 unit IV [facility] Last Admin: 12/24/17 12:12 Dose: 10,000 unit Heparin Sodium (Porcine) (Heparin) 3,700 units IVP [facility] Stop: 12/28/17 09:01 Last Admin: 12/24/17 12:23 Dose: 3,700 units Cefepime HCl (Maxipime Iv 1 Gm Premix) 1 gm in 50 mls @ 100 mls/hr IVPB Q24H [facility] PRN Reason: Protocol Last Admin: 12/24/17 13:25 Dose: Not Given Ampicillin 1 gm/ Sodium (Chloride) 100 mls @ 200 mls/hr IVPB Q12H [facility] Insulin Aspart (Novolog) 0 unit SC ACHS [facility] PRN Reason: Protocol Last Admin: 12/24/17 11:41 Dose: Not Given Oxycodone/Acetaminophen (Percocet 5/325 Mg Tab) 1 tab PO Q4H PRN PRN Reason: Pain, moderate (4-7) Stop: 12/24/17 13:49 Last Admin: 12/22/17 00:47 Dose: 1 tab - Labs Labs: 12/24/17 09:09 12/24/17 09:09 PT 14.1 SECONDS (9.7-12.2) H 12/17/17 11:01 INR 1.2 12/17/17 11:01 APTT 32 SECONDS (21-34) 12/18/17 04:59 <Radha San - Last Filed: 12/24/17 22:36> Objective - Vital Signs/Intake and Output Vital Signs (last 24 hours): Temp Pulse Resp BP Pulse Ox 98.8 F 100 H 20 128/79 100 12/24/17 16:00 12/24/17 16:00 12/24/17 16:00 12/24/17 16:00 12/24/17 16:00 Intake and Output: 12/24/17 12/25/17 18:59 06:59 Intake Total 945 Balance 945 - Medications Medications: Current Medications Dextrose (Dextrose 50% Inj) 25 ml IV Q3H PRN PRN Reason: Hypoglycemia Last Admin: 12/23/17 07:44 Dose: 25 ml Epoetin [facility] (Procrit) 10,000 unit IV [facility] Last Admin: 12/24/17 12:12 Dose: 10,000 unit Heparin Sodium (Porcine) (Heparin) 3,700 units IVP [facility] Stop: 12/28/17 09:01 Last Admin: 12/24/17 12:23 Dose: 3,700 units Cefepime HCl (Maxipime Iv 1 Gm Premix) 1 gm in 50 mls @ 100 mls/hr IVPB Q24H [facility] PRN Reason: Protocol Last Admin: 12/24/17 13:25 Dose: Not Given Ampicillin 1 gm/ Sodium (Chloride) 100 mls @ 200 mls/hr IVPB Q12H [facility] Last Admin: 12/24/17 13:52 Dose: 200 mls/hr Insulin Aspart (Novolog) 0 unit SC ACHS [facility] PRN Reason: Protocol Last Admin: 12/24/17 21:27 Dose: Not Given - Labs Labs: 12/24/17 09:09 12/24/17 09:09 PT 14.1 SECONDS (9.7-12.2) H 12/17/17 11:01 INR 1.2 12/17/17 11:01 APTT 32 SECONDS (21-34) 12/18/17 04:59 Assessment and Plan (1) Sepsis Status: Acute (2) Decubitus ulcers Status: Acute (3) Metabolic acidosis Status: Acute (4) ESRD (end stage renal disease) Status: Acute (5) Type 2 diabetes mellitus with diabetic nephropathy Status: Acute (6) PVD (peripheral vascular disease) Status: Acute
[2017-12-24] MEDS: AMPicillin 1 GM in Sodium Chloride 0.9% 100 ML IVPB SCH (13:52)
--- NOTE | 2017-12-24 16:40 | CP.PCM.PN ---
Subjective - Date & Time of Evaluation Date of Evaluation: 12/24/17 Time of Evaluation: 16:40 - Subjective Subjective: CHIEF COMPLAINTS TODAY : afebrile c/o soreness in the back postoperative site. H/H DROPPED TO 7.5. Patient received 1 unit PRBC TODAY. Wants to know if she has lupus ? ROS. HEENT : N. Resp : No SOB wheezing, cough Cardio : No CP, PND orthopnea GI : No abd. 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 Musculoskel : N Ext. : Pedal pulses intact, no edema or calf pain ,LISETTE AV FISTULA Derm : SACRAL DECUBITUS ULCER ON THE LUMBAR SPINE . POSITIVE DRESSING IN PLACE. Psych : N. PE. Pt. is alert awake in no distress. V.S As noted in the chart Head ,ear nose,throat and eyes : Normal. Neck : Supple with normal carotids. Lungs: Clear air entry. Heart : S1 & S2 normal . . No murmur. S4 + Abd : Soft non tender with normal bowel sounds. Neuro : Moves all ext. with no localized deficit. Ext : No edema with intact pulses. Neg. calf tenderness LISETTE AV FISTULA. Derm : SACRAL DECUBITUS ULCER ON THE LUMBAR SPINE . POSITIVE DRESSING IN PLACE. Radiology/Labs . SACRAL WOUND CULTURE +VE Escherichia coli-pansensitive +ve Enterococcus faecalis s-ampicillin. 3- PHASE BONE SCAN -VE FOR OSTEOMYELITIS. Asssessment : SEPSIS. SACRAL DECUBITUS ULCERS S/P I & D. ESRD ON HD MWF LISETTE AVF 12/21/17. ANEMIA. DIABETIC NEPHROPATHY. PVD. Plan : DC/IV DAPTOMYCIN START iv AMPICILLIN 1 G EVERY 12 HOURLY.12/24/17. CONTINUE iv CEFEPIME DECREASE DOSE TO 1 G EVERY 24 HOURLY.12/17 LWC PER SURGERY. blood transfusion as per renal. Objective - Vital Signs/Intake and Output Vital Signs (last 24 hours): Temp Pulse Resp BP Pulse Ox 98.8 F 100 H 20 128/79 100 12/24/17 16:00 12/24/17 16:00 12/24/17 16:00 12/24/17 16:00 12/24/17 16:00 Intake and Output: 12/24/17 12/24/17 06:59 18:59 Intake Total 630 945 Balance 630 945 - Medications Medications: Current Medications Dextrose (Dextrose 50% Inj) 25 ml IV Q3H PRN PRN Reason: Hypoglycemia Last Admin: 12/23/17 07:44 Dose: 25 ml Epoetin Landon (Procrit) 10,000 unit IV [place] Last Admin: 12/24/17 12:12 Dose: 10,000 unit Heparin Sodium (Porcine) (Heparin) 3,700 units IVP [place] Stop: 12/28/17 09:01 Last Admin: 12/24/17 12:23 Dose: 3,700 units Cefepime HCl (Maxipime Iv 1 Gm Premix) 1 gm in 50 mls @ 100 mls/hr IVPB Q24H [facility] PRN Reason: Protocol Last Admin: 12/24/17 13:25 Dose: Not Given Ampicillin 1 gm/ Sodium (Chloride) 100 mls @ 200 mls/hr IVPB Q12H [facility] Last Admin: 12/24/17 13:52 Dose: 200 mls/hr Insulin Aspart (Novolog) 0 unit SC ACHS [facility] PRN Reason: Protocol Last Admin: 12/24/17 11:41 Dose: Not Given - Labs Labs: 12/24/17 09:09 12/24/17 09:09 PT 14.1 SECONDS (9.7-12.2) H 12/17/17 11:01 INR 1.2 12/17/17 11:01 APTT 32 SECONDS (21-34) 12/18/17 04:59 Assessment and Plan (1) Sepsis Status: Acute (2) Decubitus ulcers Status: Acute (3) Metabolic acidosis Status: Acute (4) ESRD (end stage renal disease) Status: Acute (5) Type 2 diabetes mellitus with diabetic nephropathy Status: Acute (6) PVD (peripheral vascular disease) Status: Acute
[2017-12-25] MEDS: AMPicillin 1 GM in Sodium Chloride 0.9% 100 ML IVPB SCH ×2 (02:12→14:39)
[2017-12-25] MEDS: (Novolog) Insulin Aspart, Recombinant 100 u/ml 10 ml vial SC SCH ×4 (07:31→21:39)
--- NOTE | 2017-12-25 12:36 | CP.PCM.PN ---
Subjective - Date & Time of Evaluation Date of Evaluation: 12/25/17 Time of Evaluation: 12:34 - Subjective Subjective: seen and examined comfortable in bed denies any f/c/sob/cough/cp/dizziness/headache/n/v/d/rash back pain Objective - Vital Signs/Intake and Output Vital Signs (last 24 hours): Temp Pulse Resp BP Pulse Ox 98.3 F 102 H 20 146/91 H 100 12/25/17 08:19 12/25/17 08:19 12/25/17 08:19 12/25/17 08:19 12/25/17 08:19 - Medications Medications: Current Medications Dextrose (Dextrose 50% Inj) 25 ml IV Q3H PRN PRN Reason: Hypoglycemia Last Admin: 12/23/17 07:44 Dose: 25 ml Epoetin [place]andon (Procrit) 10,000 unit IV [facility] Last Admin: 12/24/17 12:12 Dose: 10,000 unit Heparin Sodium (Porcine) (Heparin) 3,700 units IVP [facility] Stop: 12/28/17 09:01 Last Admin: 12/24/17 12:23 Dose: 3,700 units Cefepime HCl (Maxipime Iv 1 Gm Premix) 1 gm in 50 mls @ 100 mls/hr IVPB Q24H [facility] PRN Reason: Protocol Last Admin: 12/24/17 13:25 Dose: Not Given Ampicillin 1 gm/ Sodium (Chloride) 100 mls @ 200 mls/hr IVPB Q12H [facility] Last Admin: 12/25/17 02:12 Dose: 200 mls/hr Insulin Aspart (Novolog) 0 unit SC ACHS [facility] PRN Reason: Protocol Last Admin: 12/25/17 12:13 Dose: Not Given - Labs Labs: 12/24/17 09:09 12/24/17 09:09 PT 14.1 SECONDS (9.7-12.2) H 12/17/17 11:01 INR 1.2 12/17/17 11:01 APTT 32 SECONDS (21-34) 12/18/17 04:59 - Constitutional Appears: No Acute Distress, Older Than Stated Age, Chronically Ill - Head Exam Head Exam: NORMAL INSPECTION, NORMOCEPHALIC - Eye Exam Eye Exam: Normal appearance, PERRL - ENT Exam ENT Exam: Mucous Membranes Moist, Normal Exam - Respiratory Exam Respiratory Exam: Clear to Ausculation Bilateral, NORMAL BREATHING PATTERN - Cardiovascular Exam Cardiovascular Exam: REGULAR RHYTHM, RRR - GI/Abdominal Exam GI & Abdominal Exam: Distended, Soft - Extremities Exam Extremities Exam: Normal Inspection (lue avf no thrill) - Neurological Exam Neurological Exam: Alert, Awake, Oriented x3 - Psychiatric Exam Psychiatric exam: Normal Affect, Normal Mood - Skin Skin Exam: Dry, Warm Assessment and Plan (1) Decubitus ulcers Status: Acute (2) ESRD (end stage renal disease) Status: Acute (3) Metabolic acidosis Status: Acute (4) Type 2 diabetes mellitus with diabetic nephropathy Status: Acute - Assessment and Plan (Free Text) Assessment: maintain hd mwf jayashree w/ hd monitor hgb antibiotics supportive care
[2017-12-25] MEDS: Cefepime IV 1 gm in Dextrose 1 GM/50 ML BAG IVPB SCH (13:18)
--- NOTE | 2017-12-25 14:03 | CP.PCM.PN ---
Subjective - Date & Time of Evaluation Date of Evaluation: 12/25/17 Time of Evaluation: 14:01 - Subjective Subjective: patient is afebrile with vital signs stable. Check H&H in a.m. IV antibiotics as per ID Wound on the back is healing well. Objective - Vital Signs/Intake and Output Vital Signs (last 24 hours): Temp Pulse Resp BP Pulse Ox 98.3 F 102 H 20 146/91 H 100 12/25/17 08:19 12/25/17 08:19 12/25/17 08:19 12/25/17 08:19 12/25/17 08:19 - Medications Medications: Current Medications Dextrose (Dextrose 50% Inj) 25 ml IV Q3H PRN PRN Reason: Hypoglycemia Last Admin: 12/23/17 07:44 Dose: 25 ml Epoetin Landon (Procrit) 10,000 unit IV [facility] [place] Last Admin: 12/24/17 12:12 Dose: 10,000 unit Heparin Sodium (Porcine) (Heparin) 3,700 units IVP [facility] [place] Stop: 12/28/17 09:01 Last Admin: 12/24/17 12:23 Dose: 3,700 units Cefepime HCl (Maxipime Iv 1 Gm Premix) 1 gm in 50 mls @ 100 mls/hr IVPB Q24H [facility] PRN Reason: Protocol Last Admin: 12/25/17 13:18 Dose: 100 mls/hr Ampicillin 1 gm/ Sodium (Chloride) 100 mls @ 200 mls/hr IVPB Q12H [facility] Last Admin: 12/25/17 02:12 Dose: 200 mls/hr Insulin Aspart (Novolog) 0 unit SC ACHS [facility] PRN Reason: Protocol Last Admin: 12/25/17 12:13 Dose: Not Given - Labs Labs: 12/24/17 09:09 12/24/17 09:09 PT 14.1 SECONDS (9.7-12.2) H 12/17/17 11:01 INR 1.2 12/17/17 11:01 APTT 32 SECONDS (21-34) 12/18/17 04:59
[2017-12-26] MEDS: AMPicillin 1 GM in Sodium Chloride 0.9% 100 ML IVPB SCH ×2 (02:06→14:00)
[2017-12-26] MEDS: (Novolog) Insulin Aspart, Recombinant 100 u/ml 10 ml vial SC SCH ×4 (07:57→22:13)
[2017-12-26 08:07] LABS: BASO # 0.1 K/uL (0.0-0.2); BASO % 0.3 % (0.0-2.0); EOS # 0.2 K/uL (0.0-0.7); EOS % 0.8 % (0.0-4.0); HEMOGLOBIN 8.4 g/dL (11.0-16.0); LYMPH # 1.5 K/uL (1.0-4.3); LYMPH % 7.9 % (20.0-40.0); MEAN CELL VOLUME 81.7 fL (81.0-99.0); MEAN CORPUSCULAR HEMOGLOBIN 27.1 pg (27.0-31.0); MEAN CORPUSCULAR HGB CONC 33.2 g/dL (33.0-37.0); MEAN PLATELET VOLUME 7.6 fL (7.2-11.7); MONO # 1.5 K/uL (0.0-0.8); MONO % 8.2 % (0.0-10.0); NEUT # 15.5 K/uL (1.8-7.0); NEUT % 82.8 % (50.0-75.0); PLATELET COUNT 268 K/uL (130-400); RBC 3.11 Mil/uL (3.80-5.20); WHITE BLOOD COUNT 18.7 K/uL (4.8-10.8)
[2017-12-26 08:13] LABS: ALB/GLOB RATIO 0.6 (1.0-2.1); ALBUMIN 2.7 g/dL (3.5-5.0); ALT/SGPT < 6 U/L (9-52); AST/SGOT 19 U/L (14-36); BLOOD UREA NITROGEN 40 mg/dL (7-17); CALCIUM 7.6 mg/dl (8.6-10.4); GFR AFRICAN-AMERICAN 17; GFR NON-AFRICAN AMERICAN 14
--- NOTE | 2017-12-26 09:01 | CP.PCM.PN ---
Subjective - Date & Time of Evaluation Date of Evaluation: 12/26/17 Time of Evaluation: 08:58 - Subjective Subjective: HD today noted low Na MARYAM with good bruit BP better wound care to sacral decubitus no urinary complaints appetite good no fever or chills no rash no headache -cough no arthralgias no sinus pain Objective - Vital Signs/Intake and Output Vital Signs (last 24 hours): Temp Pulse Resp BP Pulse Ox 98.8 F 97 H 20 142/87 98 12/26/17 08:33 12/26/17 08:33 12/26/17 08:33 12/26/17 08:33 12/26/17 08:33 - Medications Medications: Current Medications Dextrose (Dextrose 50% Inj) 25 ml IV Q3H PRN PRN Reason: Hypoglycemia Last Admin: 12/23/17 07:44 Dose: 25 ml Epoetin [place] (Procrit) 10,000 unit [place] [facility] Last Admin: 12/24/17 12:12 Dose: 10,000 unit Heparin Sodium (Porcine) (Heparin) 3,700 units IVP [facility] Stop: 12/28/17 09:01 Last Admin: 12/24/17 12:23 Dose: 3,700 units Cefepime HCl (Maxipime Iv 1 Gm Premix) 1 gm in 50 mls @ 100 mls/hr IVPB Q24H [facility] PRN Reason: Protocol Last Admin: 12/25/17 13:18 Dose: 100 mls/hr Ampicillin 1 gm/ Sodium (Chloride) 100 mls @ 200 mls/hr IVPB Q12H [facility] Last Admin: 12/26/17 02:06 Dose: 200 mls/hr Insulin Aspart (Novolog) 0 unit SC ACHS [facility] PRN Reason: Protocol Last Admin: 12/26/17 07:57 Dose: 4 unit - Labs Labs: 12/26/17 07:43 12/26/17 07:43 PT 14.1 SECONDS (9.7-12.2) H 12/17/17 11:01 INR 1.2 12/17/17 11:01 APTT 32 SECONDS (21-34) 12/18/17 04:59 - Constitutional Appears: Cachectic, Chronically Ill - Head Exam Head Exam: ATRAUMATIC, NORMAL INSPECTION - Eye Exam Eye Exam: EOMI - ENT Exam ENT Exam: Mucous Membranes Moist - Neck Exam Neck Exam: Full ROM. absent: Lymphadenopathy - Respiratory Exam Respiratory Exam: Decreased Breath Sounds. absent: Accessory Muscle Use - Cardiovascular Exam Cardiovascular Exam: REGULAR RHYTHM. absent: Rubs - GI/Abdominal Exam GI & Abdominal Exam: Distended. absent: Guarding - Extremities Exam Extremities Exam: Pedal Edema - Neurological Exam Neurological Exam: Alert, Awake Assessment and Plan - Assessment and Plan (Free Text) Plan: esrd noncompliant anemia sacral decub MARYAM just inserted hyponatremia, likely dilutional dm hypotension, chronic discharge planning HD today fluid restriction reviewed
[2017-12-26 09:49] LABS: ANISOCYTOSIS SLIGHT; EOSINOPHIL 2 % (0-4); HYPOCHROMIC SLIGHT; LYMPHOCYTE 9 % (20-40); MONOCYTE 6 % (0-10); NEUTROPHIL 83 % (50-75); PLATELET ESTIMATE NORMAL (NORMAL); POIKILOCYTOSIS SLIGHT; TOTAL CELLS COUNTED 100
[2017-12-26 09:50] LABS: LARGE PLATELETS PRESENT; MICROCYTOSIS SLIGHT
[2017-12-26 09:51] LABS: TARGET CELLS SLIGHT
[2017-12-26] MEDS: Cefepime IV 1 gm in Dextrose 1 GM/50 ML BAG IVPB SCH (13:15)
--- NOTE | 2017-12-26 13:32 | CP.PCM.PN ---
Subjective - Date & Time of Evaluation Date of Evaluation: 12/26/17 Time of Evaluation: 13:31 - Subjective Subjective: PATIENT IS AFEBRILE. WOUND ON THE SACRAL AREA IS HEALING WITH GRANULATION. HEMOGLOBIN IS 8.4 GRAMS, WHICH WAS SUPPOSED TO RECEIVE A SECOND UNIT DURING DIALYSIS TODAY. CONTINUE IV ANTIBIOTICS. LOW SODIUM NOTED. Objective - Vital Signs/Intake and Output Vital Signs (last 24 hours): Temp Pulse Resp BP Pulse Ox 98.8 F 97 H 20 142/87 98 12/26/17 08:33 12/26/17 08:33 12/26/17 08:33 12/26/17 08:33 12/26/17 08:33 - Medications Medications: Current Medications Dextrose (Dextrose 50% Inj) 25 ml IV Q3H PRN PRN Reason: Hypoglycemia Last Admin: 12/23/17 07:44 Dose: 25 ml Epoetin [place] (Procrit) 10,000 unit IV [facility] Last Admin: 12/24/17 12:12 Dose: 10,000 unit Heparin Sodium (Porcine) (Heparin) 3,700 units IVP [facility] Stop: 12/28/17 09:01 Last Admin: 12/24/17 12:23 Dose: 3,700 units Cefepime HCl (Maxipime Iv 1 Gm Premix) 1 gm in 50 mls @ 100 mls/hr IVPB Q24H [facility] PRN Reason: Protocol Last Admin: 12/25/17 13:18 Dose: 100 mls/hr Ampicillin 1 gm/ Sodium (Chloride) 100 mls @ 200 mls/hr IVPB Q12H [facility] Last Admin: 12/26/17 02:06 Dose: 200 mls/hr Insulin Aspart (Novolog) 0 unit SC ACHS [facility] PRN Reason: Protocol Last Admin: 12/26/17 11:37 Dose: Not Given - Labs Labs: 12/26/17 07:43 12/26/17 07:43 PT 14.1 SECONDS (9.7-12.2) H 12/17/17 11:01 INR 1.2 12/17/17 11:01 APTT 32 SECONDS (21-34) 12/18/17 04:59
[2017-12-26] MEDS: Epoetin Alfa 10,000 unit/ml Dialysis IV SCH (15:04)
--- NOTE | 2017-12-26 23:37 | CP.PCM.PN ---
Subjective - Date & Time of Evaluation Date of Evaluation: 12/26/17 Time of Evaluation: 23:37 - Subjective Subjective: CHIEF COMPLAINTS TODAY : afebrile c/o soreness in the back postoperative site. ROS. HEENT : N. Resp : No SOB wheezing, cough Cardio : No CP, PND orthopnea GI : No abd. 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 Musculoskel : N Ext. : Pedal pulses intact, no edema or calf pain ,LISETTE AV FISTULA Derm : SACRAL DECUBITUS ULCER ON THE LUMBAR SPINE . POSITIVE DRESSING IN PLACE. Psych : N. PE. Pt. is alert awake in no distress. V.S As noted in the chart Head ,ear nose,throat and eyes : Normal. Neck : Supple with normal carotids. Lungs: Clear air entry. Heart : S1 & S2 normal . . No murmur. S4 + Abd : Soft non tender with normal bowel sounds. Neuro : Moves all ext. with no localized deficit. Ext : No edema with intact pulses. Neg. calf tenderness LISETTE AV FISTULA. Derm : SACRAL DECUBITUS ULCER ON THE LUMBAR SPINE . POSITIVE DRESSING IN PLACE. Radiology/Labs . SACRAL WOUND CULTURE +VE Escherichia coli-pansensitive +ve Enterococcus faecalis s-ampicillin. 3- PHASE BONE SCAN -VE FOR OSTEOMYELITIS. Asssessment : SEPSIS. SACRAL DECUBITUS ULCERS S/P I & D. ESRD ON HD MWF LISETTE AVF 12/21/17. ANEMIA. DIABETIC NEPHROPATHY. PVD. Plan : CONTINUE iv AMPICILLIN 1 G EVERY 12 HOURLY.12/24/17. CONTINUE iv CEFEPIME DECREASE DOSE TO 1 G EVERY 24 HOURLY.12/17 LWC PER SURGERY. F/U JACK Objective - Vital Signs/Intake and Output Vital Signs (last 24 hours): Temp Pulse Resp BP Pulse Ox 99.8 F H 92 H 20 152/87 H 100 12/26/17 23:26 12/26/17 23:26 12/26/17 23:26 12/26/17 23:26 12/26/17 23:26 Intake and Output: 12/26/17 12/27/17 18:59 06:59 Intake Total 325 Balance 325 - Medications Medications: Current Medications Dextrose (Dextrose 50% Inj) 25 ml IV Q3H PRN PRN Reason: Hypoglycemia Last Admin: 12/23/17 07:44 Dose: 25 ml Epoetin [place] (Procrit) 10,000 unit IV [facility] [place] Last Admin: 12/26/17 15:04 Dose: 10,000 unit Heparin Sodium (Porcine) (Heparin) 3,700 units IVP [facility] [place] Stop: 12/28/17 09:01 Last Admin: 12/26/17 17:27 Dose: Not Given Cefepime HCl (Maxipime Iv 1 Gm Premix) 1 gm in 50 mls @ 100 mls/hr IVPB Q24H [facility] PRN Reason: Protocol Last Admin: 12/26/17 13:15 Dose: Not Given Ampicillin 1 gm/ Sodium (Chloride) 100 mls @ 200 mls/hr IVPB Q12H [facility] Last Admin: 12/26/17 14:00 Dose: Not Given Insulin Aspart (Novolog) 0 unit SC ACHS [facility] PRN Reason: Protocol Last Admin: 12/26/17 22:13 Dose: Not Given - Labs Labs: 12/26/17 07:43 12/26/17 07:43 PT 14.1 SECONDS (9.7-12.2) H 12/17/17 11:01 INR 1.2 12/17/17 11:01 APTT 32 SECONDS (21-34) 12/18/17 04:59 Assessment and Plan (1) Sepsis Status: Acute (2) Decubitus ulcers Status: Acute (3) Metabolic acidosis Status: Acute (4) ESRD (end stage renal disease) Status: Acute (5) Type 2 diabetes mellitus with diabetic nephropathy Status: Acute (6) PVD (peripheral vascular disease) Status: Acute
[2017-12-27] MEDS: AMPicillin 1 GM in Sodium Chloride 0.9% 100 ML IVPB SCH ×2 (01:32→13:58)
[2017-12-27 07:24] LABS: BASO # 0.1 K/uL (0.0-0.2); BASO % 0.5 % (0.0-2.0); EOS # 0.2 K/uL (0.0-0.7); EOS % 0.8 % (0.0-4.0); HEMOGLOBIN 9.1 g/dL (11.0-16.0); LYMPH # 1.1 K/uL (1.0-4.3); LYMPH % 5.5 % (20.0-40.0); MEAN CELL VOLUME 83.1 fL (81.0-99.0); MEAN CORPUSCULAR HEMOGLOBIN 27.5 pg (27.0-31.0); MEAN PLATELET VOLUME 7.3 fL (7.2-11.7); MONO % 9.9 % (0.0-10.0); NEUT # 16.9 K/uL (1.8-7.0); NEUT % 83.3 % (50.0-75.0); PLATELET COUNT 254 K/uL (130-400); RED CELL DISTRIBUTION WIDTH 15.7 % (11.5-14.5); WHITE BLOOD COUNT 20.3 K/uL (4.8-10.8)
[2017-12-27 07:42] LABS: ALB/GLOB RATIO 0.6 (1.0-2.1); ALBUMIN 2.8 g/dL (3.5-5.0); CALCIUM 7.9 mg/dl (8.6-10.4)
[2017-12-27] MEDS: (Novolog) Insulin Aspart, Recombinant 100 u/ml 10 ml vial SC SCH ×4 (08:43→21:36)
[2017-12-27 08:45] LABS: BANDS 1 % (0-2); LYMPHOCYTE 6 % (20-40); MONOCYTE 6 % (0-10); NEUTROPHIL 87 % (50-75); TOTAL CELLS COUNTED 100
[2017-12-27 08:46] LABS: ANISOCYTOSIS SLIGHT; PLATELET ESTIMATE NORMAL (NORMAL)
--- NOTE | 2017-12-27 10:02 | CP.PCM.PN ---
Subjective - Date & Time of Evaluation Date of Evaluation: 12/27/17 Time of Evaluation: 10:00 - Subjective Subjective: s/p dialysis 12/26 decubitii care ongoing 'AV access with bruit feels ok otherwise Objective - Vital Signs/Intake and Output Vital Signs (last 24 hours): Temp Pulse Resp BP Pulse Ox 98.2 F 99 H 20 128/78 96 12/27/17 07:49 12/27/17 07:49 12/27/17 07:49 12/27/17 07:49 12/27/17 07:49 - Medications Medications: Current Medications Dextrose (Dextrose 50% Inj) 25 ml IV Q3H PRN PRN Reason: Hypoglycemia Last Admin: 12/23/17 07:44 Dose: 25 ml Epoetin [place] (Procrit) 10,000 unit IV [facility] [place] Last Admin: 12/26/17 15:04 Dose: 10,000 unit Heparin Sodium (Porcine) (Heparin) 3,700 units IVP [facility] Stop: 12/28/17 09:01 Last Admin: 12/26/17 17:27 Dose: Not Given Cefepime HCl (Maxipime Iv 1 Gm Premix) 1 gm in 50 mls @ 100 mls/hr IVPB Q24H [facility] PRN Reason: Protocol Last Admin: 12/26/17 13:15 Dose: Not Given Ampicillin 1 gm/ Sodium (Chloride) 100 mls @ 200 mls/hr IVPB Q12H [facility] Last Admin: 12/27/17 01:32 Dose: 200 mls/hr Insulin Aspart (Novolog) 0 unit SC ACHS [facility] PRN Reason: Protocol Last Admin: 12/27/17 08:43 Dose: Not Given - Labs Labs: 12/27/17 07:14 12/27/17 07:14 PT 14.1 SECONDS (9.7-12.2) H 12/17/17 11:01 INR 1.2 12/17/17 11:01 APTT 32 SECONDS (21-34) 12/18/17 04:59 - Constitutional Appears: No Acute Distress, Chronically Ill - Head Exam Head Exam: ATRAUMATIC, NORMAL INSPECTION - Eye Exam Eye Exam: EOMI, Normal appearance - Respiratory Exam Respiratory Exam: Clear to Ausculation Bilateral, NORMAL BREATHING PATTERN - Cardiovascular Exam Cardiovascular Exam: REGULAR RHYTHM, +S1 - GI/Abdominal Exam GI & Abdominal Exam: Soft. absent: Tenderness - Extremities Exam Extremities Exam: Normal Inspection. absent: Tenderness - Neurological Exam Neurological Exam: Alert, CN II-XII Intact - Skin Skin Exam: Dry, Warm Assessment and Plan (1) Type 2 diabetes mellitus with diabetic nephropathy Status: Acute (2) ESRD (end stage renal disease) Status: Acute (3) Metabolic acidosis Status: Acute (4) Sepsis associated with vascular access catheter Status: Acute (5) Decubitus ulcers Status: Acute - Assessment and Plan (Free Text) Plan: same dialysis MWF wound care
--- NOTE | 2017-12-27 13:27 | CP.PCM.PN ---
Subjective - Date & Time of Evaluation Date of Evaluation: 12/27/17 Time of Evaluation: 13:26 - Subjective Subjective: PATIENT IS AFEBRILE. WOUND ON THE SACRAL AREA IS HEALING WITH GRANULATION. HEMOGLOBIN IS 9.1GRAMS, CONTINUE IV ANTIBIOTICS.WBC 20 K LOW SODIUM NOTED. Objective - Vital Signs/Intake and Output Vital Signs (last 24 hours): Temp Pulse Resp BP Pulse Ox 98.2 F 99 H 20 128/78 96 12/27/17 07:49 12/27/17 07:49 12/27/17 07:49 12/27/17 07:49 12/27/17 07:49 - Medications Medications: Current Medications Dextrose (Dextrose 50% Inj) 25 ml IV Q3H PRN PRN Reason: Hypoglycemia Last Admin: 12/23/17 07:44 Dose: 25 ml Epoetin Landon (Procrit) 10,000 unit IV MWF [facility] Last Admin: 12/26/17 15:04 Dose: 10,000 unit Cefepime HCl (Maxipime Iv 1 Gm Premix) 1 gm in 50 mls @ 100 mls/hr IVPB Q24H [facility] PRN Reason: Protocol Last Admin: 12/26/17 13:15 Dose: Not Given Ampicillin 1 gm/ Sodium (Chloride) 100 mls @ 200 mls/hr IVPB Q12H [facility] Last Admin: 12/27/17 01:32 Dose: 200 mls/hr Insulin Aspart (Novolog) 0 unit SC ACHS [facility] PRN Reason: Protocol Last Admin: 12/27/17 08:43 Dose: Not Given - Labs Labs: 12/27/17 07:14 12/27/17 07:14 PT 14.1 SECONDS (9.7-12.2) H 12/17/17 11:01 INR 1.2 12/17/17 11:01 APTT 32 SECONDS (21-34) 12/18/17 04:59
[2017-12-27] MEDS: Cefepime IV 1 gm in Dextrose 1 GM/50 ML BAG IVPB SCH (13:29)
--- NOTE | 2017-12-27 18:35 | CP.PCM.PN ---
Subjective - Date & Time of Evaluation Date of Evaluation: 12/27/17 Time of Evaluation: 11:00 - Subjective Subjective: Alert, awake, no sob or distress. Objective - Vital Signs/Intake and Output Vital Signs (last 24 hours): Temp Pulse Resp BP Pulse Ox 98.3 F 97 H 20 150/81 100 12/27/17 15:00 12/27/17 15:00 12/27/17 15:00 12/27/17 15:00 12/27/17 15:00 - Medications Medications: Current Medications Acetaminophen (Tylenol 325mg Tab) 650 mg PO Q6 PRN PRN Reason: Headache Last Admin: 12/27/17 17:38 Dose: 650 mg Dextrose (Dextrose 50% Inj) 25 ml IV Q3H PRN PRN Reason: Hypoglycemia Last Admin: 12/23/17 07:44 Dose: 25 ml Epoetin Landon (Procrit) 10,000 unit IV MWF [facility] Last Admin: 12/26/17 15:04 Dose: 10,000 unit Cefepime HCl (Maxipime Iv 1 Gm Premix) 1 gm in 50 mls @ 100 mls/hr IVPB Q24H [facility] PRN Reason: Protocol Last Admin: 12/27/17 13:29 Dose: 100 mls/hr Ampicillin 1 gm/ Sodium (Chloride) 100 mls @ 200 mls/hr IVPB Q12H [facility] Last Admin: 12/27/17 13:58 Dose: 200 mls/hr Insulin Aspart (Novolog) 0 unit SC ACHS [facility] PRN Reason: Protocol Last Admin: 12/27/17 17:17 Dose: Not Given - Labs Labs: 12/27/17 07:14 12/27/17 07:14 PT 14.1 SECONDS (9.7-12.2) H 12/17/17 11:01 INR 1.2 12/17/17 11:01 APTT 32 SECONDS (21-34) 12/18/17 04:59 Assessment and Plan - Assessment and Plan (Free Text) Assessment: Patient is alert and orientedx3, denies acute pain or distress. Discussed with DR San and DR Arreguin, plan to discharge home in the morning after HD, on po cipro for the wound sepsis. Home care, home PT and wound care arranged. Advised to follow up with PMD in 1 week.
--- NOTE | 2017-12-27 23:23 | CP.PCM.PN ---
Subjective - Date & Time of Evaluation Date of Evaluation: 12/27/17 Time of Evaluation: 23:23 - Subjective Subjective: CHIEF COMPLAINTS TODAY : afebrile c/o SOME SORENESS IN BACK. AVF - NEW +VE BRUIT ROS. HEENT : N. Resp : No SOB wheezing, cough Cardio : No CP, PND orthopnea GI : No abd. 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 Musculoskel : N Ext. : Pedal pulses intact, no edema or calf pain ,LISETTE AV FISTULA Derm : SACRAL DECUBITUS ULCER ON THE LUMBAR SPINE . POSITIVE DRESSING IN PLACE. Psych : N. PE. Pt. is alert awake in no distress. V.S As noted in the chart Head ,ear nose,throat and eyes : Normal. Neck : Supple with normal carotids. Lungs: Clear air entry. Heart : S1 & S2 normal . . No murmur. S4 + Abd : Soft non tender with normal bowel sounds. Neuro : Moves all ext. with no localized deficit. Ext : No edema with intact pulses. Neg. calf tenderness LISETTE AV FISTULA. Derm : SACRAL DECUBITUS ULCER ON THE LUMBAR SPINE . POSITIVE DRESSING IN PLACE. Radiology/Labs . JACK-VE SACRAL WOUND CULTURE +VE Escherichia coli-pansensitive +ve Enterococcus faecalis s-ampicillin. 3- PHASE BONE SCAN -VE FOR OSTEOMYELITIS. Asssessment : SEPSIS. SACRAL DECUBITUS ULCERS S/P I & D. ESRD ON HD MWF LISETTE AVF 12/21/17. ANEMIA. DIABETIC NEPHROPATHY. PVD. Plan : CASE DISCUSSED WITH TALENT DEVELOPMENT ANALYST MS CAMPOVERDE. 12/27/17 PT TO BE SWITCHED TO PO CIPRO 500MG OD DAILY X 14 DAYS ON DISCHARGE. CONTINUE iv AMPICILLIN 1 G EVERY 12 HOURLY.12/24/17. CONTINUE iv CEFEPIME DECREASE DOSE TO 1 G EVERY 24 HOURLY.12/17 LWC PER SURGERY. Objective - Vital Signs/Intake and Output Vital Signs (last 24 hours): Temp Pulse Resp BP Pulse Ox 98.3 F 97 H 20 150/81 100 12/27/17 15:00 12/27/17 15:00 12/27/17 15:00 12/27/17 15:00 12/27/17 15:00 - Medications Medications: Current Medications Acetaminophen (Tylenol 325mg Tab) 650 mg PO Q6 PRN PRN Reason: Headache Last Admin: 12/27/17 17:38 Dose: 650 mg Dextrose (Dextrose 50% Inj) 25 ml IV Q3H PRN PRN Reason: Hypoglycemia Last Admin: 12/23/17 07:44 Dose: 25 ml Epoetin Landon (Procrit) 10,000 unit IV MWF [facility] Last Admin: 12/26/17 15:04 Dose: 10,000 unit Cefepime HCl (Maxipime Iv 1 Gm Premix) 1 gm in 50 mls @ 100 mls/hr IVPB Q24H [facility] PRN Reason: Protocol Last Admin: 12/27/17 13:29 Dose: 100 mls/hr Ampicillin 1 gm/ Sodium (Chloride) 100 mls @ 200 mls/hr IVPB Q12H [facility] Last Admin: 12/27/17 13:58 Dose: 200 mls/hr Insulin Aspart (Novolog) 0 unit SC ACHS [facility] PRN Reason: Protocol Last Admin: 12/27/17 21:36 Dose: Not Given - Labs Labs: 12/27/17 07:14 12/27/17 07:14 PT 14.1 SECONDS (9.7-12.2) H 12/17/17 11:01 INR 1.2 12/17/17 11:01 APTT 32 SECONDS (21-34) 12/18/17 04:59 Assessment and Plan (1) Sepsis Status: Acute (2) Decubitus ulcers Status: Acute (3) Metabolic acidosis Status: Acute (4) ESRD (end stage renal disease) Status: Acute (5) Type 2 diabetes mellitus with diabetic nephropathy Status: Acute (6) PVD (peripheral vascular disease) Status: Acute
[2017-12-28] MEDS: AMPicillin 1 GM in Sodium Chloride 0.9% 100 ML IVPB SCH ×2 (01:53→14:27)
[2017-12-28 07:16] LABS: BASO # 0.1 K/uL (0.0-0.2); BASO % 0.5 % (0.0-2.0); EOS # 0.2 K/uL (0.0-0.7); EOS % 1.1 % (0.0-4.0); HEMOGLOBIN 8.7 g/dL (11.0-16.0); LYMPH # 1.4 K/uL (1.0-4.3); LYMPH % 7.3 % (20.0-40.0); MEAN CORPUSCULAR HEMOGLOBIN 27.4 pg (27.0-31.0); MEAN PLATELET VOLUME 7.6 fL (7.2-11.7); MONO # 1.4 K/uL (0.0-0.8); MONO % 7.6 % (0.0-10.0); NEUT # 15.9 K/uL (1.8-7.0); NEUT % 83.5 % (50.0-75.0); PLATELET COUNT 288 K/uL (130-400); RBC 3.19 Mil/uL (3.80-5.20); RED CELL DISTRIBUTION WIDTH 16.3 % (11.5-14.5); WHITE BLOOD COUNT 19.1 K/uL (4.8-10.8)
[2017-12-28 07:40] LABS: ALB/GLOB RATIO 0.5 (1.0-2.1); ALBUMIN 2.7 g/dL (3.5-5.0); CALCIUM 7.8 mg/dl (8.6-10.4)
[2017-12-28] MEDS: (Novolog) Insulin Aspart, Recombinant 100 u/ml 10 ml vial SC SCH ×4 (08:07→21:47)
[2017-12-28 08:48] LABS: LYMPHOCYTE 6 % (20-40); MONOCYTE 9 % (0-10); NEUTROPHIL 85 % (50-75); PLATELET ESTIMATE NORMAL (NORMAL); TOTAL CELLS COUNTED 100
[2017-12-28 08:49] LABS: ANISOCYTOSIS SLIGHT; LARGE PLATELETS PRESENT; MICROCYTOSIS SLIGHT; POIKILOCYTOSIS SLIGHT
[2017-12-28] MEDS: Epoetin Alfa 10,000 unit/ml Dialysis IV SCH (10:40)
--- NOTE | 2017-12-28 13:58 | CP.PCM.PN ---
Subjective - Date & Time of Evaluation Date of Evaluation: 12/28/17 Time of Evaluation: 13:44 Objective - Vital Signs/Intake and Output Vital Signs (last 24 hours): Temp Pulse Resp BP Pulse Ox 97.8 F 96 H 16 149/106 H 100 12/28/17 12:15 12/28/17 12:15 12/28/17 12:15 12/28/17 12:15 12/28/17 12:15 - Medications Medications: Current Medications Acetaminophen (Tylenol 325mg Tab) 650 mg PO Q6 PRN PRN Reason: Headache Last Admin: 12/27/17 23:33 Dose: 650 mg Dextrose (Dextrose 50% Inj) 25 ml IV Q3H PRN PRN Reason: Hypoglycemia Last Admin: 12/23/17 07:44 Dose: 25 ml Epoetin Landon (Procrit) 10,000 unit IV MWF [facility] Last Admin: 12/28/17 10:40 Dose: 10,000 unit Cefepime HCl (Maxipime Iv 1 Gm Premix) 1 gm in 50 mls @ 100 mls/hr IVPB Q24H [facility] PRN Reason: Protocol Last Admin: 12/27/17 13:29 Dose: 100 mls/hr Ampicillin 1 gm/ Sodium (Chloride) 100 mls @ 200 mls/hr IVPB Q12H [facility] Last Admin: 12/28/17 01:53 Dose: 200 mls/hr Insulin Aspart (Novolog) 0 unit SC ACHS [facility] PRN Reason: Protocol Last Admin: 12/28/17 11:42 Dose: Not Given - Labs Labs: 12/28/17 07:08 12/28/17 07:08 PT 14.1 SECONDS (9.7-12.2) H 12/17/17 11:01 INR 1.2 12/17/17 11:01 APTT 32 SECONDS (21-34) 12/18/17 04:59
--- NOTE | 2017-12-28 14:01 | CP.PCM.DIS ---
Provider - Provider Date of Admission: 12/17/17 11:48 Attending physician: Ching Arreguin MD Time Spent in preparation of Discharge (in minutes): 35 Hospital Course - Lab Results Lab Results: Micro Results 12/22/17 16:33 Naris MRSA Culture - Final MRSA NOT DETECTED 12/20/17 18:41 Sacral Gram Stain - Final 12/20/17 18:41 Sacral Wound Culture - Final Escherichia Coli Enterococcus Faecalis 12/17/17 10:40 Blood Blood Culture - Final NO GROWTH AFTER 5 DAYS 12/17/17 10:40 Blood Gram Stain - Final TEST NOT PERFORMED 12/17/17 11:00 Blood Blood Culture - Final NO GROWTH AFTER 5 DAYS 12/17/17 11:00 Blood Gram Stain - Final TEST NOT PERFORMED 12/20/17 18:00 Sacral Gram Stain - Final 12/20/17 18:00 Sacral Wound Culture - Final Escherichia Coli 12/17/17 12:30 Buttock Gram Stain - Final 12/17/17 12:30 Buttock Wound Culture - Final Escherichia Coli Beta Hemolytic Strep Group B 12/17/17 15:00 Nose MRSA Culture (Admit) - Final MRSA NOT DETECTED Most Recent Lab Values WBC 19.1 K/uL (4.8-10.8) H 12/28/17 07:08 RBC 3.19 Mil/uL (3.80-5.20) L 12/28/17 07:08 Hgb 8.7 g/dL (11.0-16.0) L 12/28/17 07:08 Hct 26.5 % (34.0-47.0) L 12/28/17 07:08 MCV 83.0 fL (81.0-99.0) 12/28/17 07:08 MCH 27.4 pg (27.0-31.0) 12/28/17 07:08 MCHC 33.0 g/dL (33.0-37.0) 12/28/17 07:08 RDW 16.3 % (11.5-14.5) H 12/28/17 07:08 Plt Count 288 K/uL (130-400) 12/28/17 07:08 MPV 7.6 fL (7.2-11.7) 12/28/17 07:08 Neut % (Auto) 83.5 % (50.0-75.0) H 12/28/17 07:08 Lymph % (Auto) 7.3 % (20.0-40.0) L 12/28/17 07:08 [place] % (Auto) 7.6 % (0.0-10.0) 12/28/17 07:08 Eos % (Auto) 1.1 % (0.0-4.0) 12/28/17 07:08 Baso % (Auto) 0.5 % (0.0-2.0) 12/28/17 07:08 Neut # (Auto) 15.9 K/uL (1.8-7.0) H 12/28/17 07:08 Lymph # (Auto) 1.4 K/uL (1.0-4.3) 12/28/17 07:08 [place] # (Auto) 1.4 K/uL (0.0-0.8) H 12/28/17 07:08 Eos # (Auto) 0.2 K/uL (0.0-0.7) 12/28/17 07:08 Baso # (Auto) 0.1 K/uL (0.0-0.2) 12/28/17 07:08 Neutrophils % (Manual) 85 % (50-75) H 12/28/17 07:08 Band Neutrophils % 1 % (0-2) 12/27/17 07:14 Lymphocytes % (Manual) 6 % (20-40) L 12/28/17 07:08 Monocytes % (Manual) 9 % (0-10) 12/28/17 07:08 Eosinophils % (Manual) 2 % (0-4) 12/26/17 07:43 Nucleated RBC % 1 % (0-0) H 12/18/17 04:59 Platelet Estimate Normal (NORMAL) 12/28/17 07:08 Large Platelets Present 12/28/17 07:08 Polychromasia Slight 12/19/17 06:25 Hypochromasia (manual) Slight 12/26/17 07:43 Poikilocytosis (manual Slight 12/28/17 07:08 Basophilic Stippling Slight 12/27/17 07:14 Anisocytosis (manual) Slight 12/28/17 07:08 Microcytosis (manual) Slight 12/28/17 07:08 Macrocytosis (manual) Slight 12/28/17 07:08 Target Cells Slight 12/26/17 07:43 Tear Drop Cells Slight 12/24/17 09:09 PT 14.1 SECONDS (9.7-12.2) H 12/17/17 11:01 INR 1.2 12/17/17 11:01 APTT 32 SECONDS (21-34) 12/18/17 04:59 pO2 75 mm/Hg (30-55) H 12/17/17 11:18 VBG pH 6.98 (7.32-7.43) L* 12/17/17 11:18 VBG pCO2 14 mmHg (40-60) L* 12/17/17 11:18 VBG HCO3 3.8 mmol/L 12/17/17 11:18 VBG Total CO2 3.7 mmol/L (22-28) L 12/17/17 11:18 VBG O2 Sat (Calc) 96.6 % (40-65) H 12/17/17 11:18 VBG Base Excess -26.6 mmol/L (0.0-2.0) L 12/17/17 11:18 VBG Potassium 4.9 mmol/L (3.6-5.2) 12/17/17 11:18 Sodium 136.0 mmol/l (132-148) 12/17/17 11:18 Chloride 109.0 mmol/L (98-107) H 12/17/17 11:18 Glucose 308 mg/dl (65-105) H 12/17/17 11:18 Lactate 1.4 mmol/L (0.7-2.1) 12/17/17 11:18 Crit Value Called To Dr neff 12/17/17 11:18 Crit Value Called By Mamadou arceo crude unit operator 12/17/17 11:18 Crit Value Read Back Y 12/17/17 11:18 Blood Gas Notified Time 1122 12/17/17 11:18 Sodium 132 mmol/L (132-148) 12/28/17 07:08 Potassium 3.7 mmol/L (3.6-5.2) 12/28/17 07:08 Chloride 94 mmol/L (98-107) L 12/28/17 07:08 Carbon Dioxide 24 mmol/L (22-30) 12/28/17 07:08 Anion Gap 17 (10-20) 12/28/17 07:08 BUN 33 mg/dL (7-17) H 12/28/17 07:08 Creatinine 3.3 mg/dL (0.7-1.2) H 12/28/17 07:08 Est GFR ( Amer) 19 12/28/17 07:08 Est GFR (Non-Af Amer) 16 12/28/17 07:08 POC Glucose (mg/dL) 136 mg/dL (65-110) H 12/28/17 11:15 Random Glucose 205 mg/dL (65-105) H 12/28/17 07:08 Calcium 7.8 mg/dl (8.6-10.4) L 12/28/17 07:08 Phosphorus 2.5 mg/dL (2.5-4.5) 12/19/17 15:52 Magnesium 2.2 mg/dL (1.6-2.3) 12/19/17 06:26 % Saturation 89 (20-55) H 12/19/17 15:52 Ferritin 3060.0 ng/mL 12/19/17 15:52 Total Bilirubin 0.8 mg/dL (0.2-1.3) 12/28/17 07:08 AST 21 U/L (14-36) 12/28/17 07:08 ALT 7 U/L (9-52) L D 12/28/17 07:08 Alkaline Phosphatase 318 U/L (38-126) H 12/28/17 07:08 Total Creatine Kinase 41 U/L (30-135) 12/17/17 11:01 Troponin I 0.0370 ng/mL (0.00-0.120) 12/17/17 11:01 NT-Pro-B Natriuret Pep 66447 pg/mL (0-450) H 12/17/17 11:01 Total Protein 7.7 g/dL (6.3-8.3) 12/28/17 07:08 Albumin 2.7 g/dL (3.5-5.0) L 12/28/17 07:08 Globulin 5.0 gm/dL (2.2-3.9) H 12/28/17 07:08 Albumin/Globulin Ratio 0.5 (1.0-2.1) L 12/28/17 07:08 Procalcitonin 5.71 NG/ML (0.19-0.49) H 12/18/17 09:57 Beta HCG, Quant < 2.39 mIU/ML 12/20/17 15:14 PTH Intact Whole Molec 53 pg/mL (14-64) 12/19/17 15:52 Venous Blood Potassium 4.9 mmol/L (3.6-5.2) 12/17/17 11:18 Serum Ketones Negative (NEGATIVE) 12/17/17 11:01 JACK 6 Profile Negative (NEGATIVE) 12/25/17 10:14 C. difficile Ag & Toxin Negative (NEGATIVE) 12/18/17 11:06 Hep Bs Antigen Negative (NEGATIVE) 12/17/17 18:53 Blood Type B POSITIVE 12/24/17 10:02 Antibody Screen Negative 12/24/17 10:02 - Hospital Course Hospital Course: admitted to icu in severe metabolic acidosis with sepsis PT WAS ADMITTED IN [facility] IN 2017. HAD RENAL FAILURE ON PERMA CATH , AND FUNGAL INFECTION IN KIDNEY BY BIOPSY. SHE WAS ON IV MICAFUNGIN . SHE LEFT HOSPITAL AMA CURRENTLY ON DIALYSIS VIA SAME CATHER NOT GONE FOR DIALYSIS FOR 1 WEEK HAS VASCULAR SURGERY IN LEG RASH WITH IV VANCO NO SMOKING ILLICIT DRUGS Patient was admitted on the floor and underwent a dialysis to [facility]. Patient tolerated the dialysis there was a large ulcer in the sacral decubitus. The cultures showed E. coli and Enterobacter faecalis. ID consult was obtained and appropriate antibiotics was given. General surgical consult was obtained and patient underwent debridement of the wound. Post debridement patient's wound was improving and healing. Patient also underwent a AV shunt placement. Post shunt the bruit was felt. Currently patient is stable afebrile white count is 19,000 and patient is now discharged will be followed as an outpatient with by mouth antibiotic. Patient also had some slight elevation of blood pressure during the dialysis which on further review patient had a stable blood pressure in the hospital throughout the course. Discharge Exam - Head Exam Head Exam: ATRAUMATIC, NORMAL INSPECTION Discharge Plan - Discharge Medications Prescriptions: Ciprofloxacin HCl [Cipro] 500 mg PO DAILY #14 tablet - Follow Up Plan Condition: FAIR Disposition: HOME/ ROUTINE Instructions: Pressure Sores (DC), How to Prevent Pressure Sores, Renal Failure Diet (DC), Metabolic Acidosis (GEN) Referrals: Ching Arreguin MD [Staff Provider] -
[2017-12-28] MEDS: Cefepime IV 1 gm in Dextrose 1 GM/50 ML BAG IVPB SCH (14:28)
--- NOTE | 2017-12-28 14:43 | CP.PCM.PN ---
Subjective - Date & Time of Evaluation Date of Evaluation: 12/28/17 Time of Evaluation: 14:41 - Subjective Subjective: stable dialysis now- UF 1000ml BP controlled feels better decubitii care ongoing AV access with bruit no new complaint Objective - Vital Signs/Intake and Output Vital Signs (last 24 hours): Temp Pulse Resp BP Pulse Ox 97.8 F 96 H 16 149/106 H 100 12/28/17 12:15 12/28/17 12:15 12/28/17 12:15 12/28/17 12:15 12/28/17 12:15 - Medications Medications: Current Medications Acetaminophen (Tylenol 325mg Tab) 650 mg PO Q6 PRN PRN Reason: Headache Last Admin: 12/27/17 23:33 Dose: 650 mg Dextrose (Dextrose 50% Inj) 25 ml IV Q3H PRN PRN Reason: Hypoglycemia Last Admin: 12/23/17 07:44 Dose: 25 ml Epoetin Landon (Procrit) 10,000 unit IV MWF [facility] Last Admin: 12/28/17 10:40 Dose: 10,000 unit Cefepime HCl (Maxipime Iv 1 Gm Premix) 1 gm in 50 mls @ 100 mls/hr IVPB Q24H [facility] PRN Reason: Protocol Last Admin: 12/28/17 14:28 Dose: 100 mls/hr Ampicillin 1 gm/ Sodium (Chloride) 100 mls @ 200 mls/hr IVPB Q12H [facility] Last Admin: 12/28/17 14:27 Dose: 200 mls/hr Insulin Aspart (Novolog) 0 unit SC ACHS [facility] PRN Reason: Protocol Last Admin: 12/28/17 11:42 Dose: Not Given - Labs Labs: 12/28/17 07:08 12/28/17 07:08 PT 14.1 SECONDS (9.7-12.2) H 12/17/17 11:01 INR 1.2 12/17/17 11:01 APTT 32 SECONDS (21-34) 12/18/17 04:59 - Constitutional Appears: No Acute Distress, Cachectic, Chronically Ill - Head Exam Head Exam: ATRAUMATIC, NORMAL INSPECTION - Eye Exam Eye Exam: EOMI, Normal appearance - Neck Exam Neck Exam: Normal Inspection. absent: Tenderness - Respiratory Exam Respiratory Exam: Clear to Ausculation Bilateral, NORMAL BREATHING PATTERN - Cardiovascular Exam Cardiovascular Exam: REGULAR RHYTHM, +S1 - GI/Abdominal Exam GI & Abdominal Exam: Soft. absent: Tenderness - Extremities Exam Extremities Exam: Normal Inspection. absent: Tenderness - Neurological Exam Neurological Exam: Alert, CN II-XII Intact - Skin Skin Exam: Dry, Warm Assessment and Plan (1) Type 2 diabetes mellitus with diabetic nephropathy Status: Acute (2) ESRD (end stage renal disease) Status: Acute (3) Metabolic acidosis Status: Acute (4) Sepsis associated with vascular access catheter Status: Acute (5) Decubitus ulcers Status: Acute - Assessment and Plan (Free Text) Plan: Same IV ABs as per ID Await AV access maturation Dialysis MWF
[2017-12-28 16:41] VITALS: RESP 20
--- NOTE | 2017-12-28 20:17 | CP.PCM.PN ---
Subjective - Date & Time of Evaluation Date of Evaluation: 12/28/17 Time of Evaluation: 20:17 - Subjective Subjective: CHIEF COMPLAINTS TODAY : afebrile c/o NAUSEAAND FEELING WEAK DID NOT EAT BREAKFAST OR LUNCH. SEEN POST HD TODAY. AVF - NEW +VE BRUIT ROS. HEENT : N. Resp : No SOB wheezing, cough Cardio : No CP, PND orthopnea GI : No abd. Pain, n/v EXTENSION EDUCATOR : No headache , focal deficit. Musculoskel : N Ext. : Pedal pulses intact, no edema or calf pain ,LISETTE AV FISTULA Derm : SACRAL DECUBITUS ULCER ON THE LUMBAR SPINE . POSITIVE DRESSING IN PLACE. Psych : N. PE. Pt. is alert awake in no distress. V.S As noted in the chart Head ,ear nose,throat and eyes : Normal. Neck : Supple with normal carotids. Lungs: Clear air entry. Heart : S1 & S2 normal . . No murmur. S4 + Abd : Soft non tender with normal bowel sounds. Neuro : Moves all ext. with no localized deficit. Ext : No edema with intact pulses. Neg. calf tenderness LISETTE AV FISTULA. Derm : SACRAL DECUBITUS ULCER ON THE LUMBAR SPINE . POSITIVE DRESSING IN PLACE. Radiology/Labs WBC 19.0 HIGH. JACK-VE SACRAL WOUND CULTURE +VE Escherichia coli-pansensitive +ve Enterococcus faecalis s-ampicillin. 3- PHASE BONE SCAN -VE FOR OSTEOMYELITIS. Asssessment : SEPSIS. SACRAL DECUBITUS ULCERS S/P I & D. ESRD ON HD MWF LISETTE AVF 12/21/17. ANEMIA. DIABETIC NEPHROPATHY. PVD. Plan : CASE DISCUSSED WITH CHRONIC SPECIALIST MS CAMPOVERDE. 12/27/17 PT TO BE SWITCHED TO PO CIPRO 500MG OD DAILY X 14 DAYS ON DISCHARGE. CONTINUE iv AMPICILLIN 1 G EVERY 12 HOURLY.12/24/17. CONTINUE iv CEFEPIME DECREASE DOSE TO 1 G EVERY 24 HOURLY.12/17 LWC PER SURGERY. Objective - Vital Signs/Intake and Output Vital Signs (last 24 hours): Temp Pulse Resp BP Pulse Ox 99.9 F H 110 H 20 131/74 99 12/28/17 16:00 12/28/17 16:00 12/28/17 16:00 12/28/17 16:00 12/28/17 16:00 - Medications Medications: Current Medications Acetaminophen (Tylenol 325mg Tab) 650 mg PO Q6 PRN PRN Reason: Headache Last Admin: 12/27/17 23:33 Dose: 650 mg Dextrose (Dextrose 50% Inj) 25 ml IV Q3H PRN PRN Reason: Hypoglycemia Last Admin: 12/23/17 07:44 Dose: 25 ml Epoetin L[place] (Procrit) 10,000 unit IV MWF [facility] Last Admin: 12/28/17 10:40 Dose: 10,000 unit Cefepime HCl (Maxipime Iv 1 Gm Premix) 1 gm in 50 mls @ 100 mls/hr IVPB Q24H [facility] PRN Reason: Protocol Last Admin: 12/28/17 14:28 Dose: 100 mls/hr Ampicillin 1 gm/ Sodium (Chloride) 100 mls @ 200 mls/hr IVPB Q12H [facility] Last Admin: 12/28/17 14:27 Dose: 200 mls/hr Insulin Aspart (Novolog) 0 unit SC ACHS [facility] PRN Reason: Protocol Last Admin: 12/28/17 17:05 Dose: Not Given - Labs Labs: 12/28/17 07:08 12/28/17 07:08 PT 14.1 SECONDS (9.7-12.2) H 12/17/17 11:01 INR 1.2 12/17/17 11:01 APTT 32 SECONDS (21-34) 12/18/17 04:59 Assessment and Plan (1) Sepsis Status: Acute (2) Decubitus ulcers Status: Acute (3) Metabolic acidosis Status: Acute (4) ESRD (end stage renal disease) Status: Acute (5) Type 2 diabetes mellitus with diabetic nephropathy Status: Acute (6) PVD (peripheral vascular disease) Status: Acute
[2017-12-29] MEDS: AMPicillin 1 GM in Sodium Chloride 0.9% 100 ML IVPB SCH ×2 (02:53→13:14)
[2017-12-29] MEDS: (Novolog) Insulin Aspart, Recombinant 100 u/ml 10 ml vial SC SCH ×3 (08:00→16:50)
[2017-12-29 08:11] LABS: BASO # 0.2 K/uL (0.0-0.2); BASO % 0.9 % (0.0-2.0); EOS # 0.2 K/uL (0.0-0.7); EOS % 0.9 % (0.0-4.0); HEMOGLOBIN 8.4 g/dL (11.0-16.0); LYMPH # 1.7 K/uL (1.0-4.3); LYMPH % 9.9 % (20.0-40.0); MEAN CELL VOLUME 83.2 fL (81.0-99.0); MEAN CORPUSCULAR HGB CONC 33.6 g/dL (33.0-37.0); MEAN PLATELET VOLUME 7.8 fL (7.2-11.7); MONO # 1.7 K/uL (0.0-0.8); MONO % 9.7 % (0.0-10.0); NEUT # 13.8 K/uL (1.8-7.0); NEUT % 78.6 % (50.0-75.0); NRBC % 0.1 % (0.0-2.0); PLATELET COUNT 298 K/uL (130-400); RBC 3.02 Mil/uL (3.80-5.20); RED CELL DISTRIBUTION WIDTH 15.7 % (11.5-14.5); WHITE BLOOD COUNT 17.6 K/uL (4.8-10.8)
[2017-12-29 08:54] LABS: ALB/GLOB RATIO 0.6 (1.0-2.1); ALBUMIN 2.7 g/dL (3.5-5.0); CALCIUM 8.1 mg/dl (8.6-10.4)
--- NOTE | 2017-12-29 08:58 | CP.PCM.PN ---
Subjective - Date & Time of Evaluation Date of Evaluation: 12/29/17 Time of Evaluation: 08:55 - Subjective Subjective: pt seen and examined in bed, comfortable offers no complaints of SOB, CP afebrile had HD yesterday ROS- as per HPI, other than that 10 point ROS negative Objective - Vital Signs/Intake and Output Vital Signs (last 24 hours): Temp Pulse Resp BP Pulse Ox 98.3 F 91 H 20 134/82 96 12/29/17 07:50 12/29/17 07:50 12/29/17 07:50 12/29/17 07:50 12/29/17 07:50 Intake and Output: 12/29/17 12/29/17 06:59 18:59 Intake Total 410 Balance 410 - Medications Medications: Current Medications Acetaminophen (Tylenol 325mg Tab) 650 mg PO Q6 PRN PRN Reason: Headache Last Admin: 12/27/17 23:33 Dose: 650 mg Dextrose (Dextrose 50% Inj) 25 ml IV Q3H PRN PRN Reason: Hypoglycemia Last Admin: 12/23/17 07:44 Dose: 25 ml Epoetin [place] (Procrit) 10,000 unit IV MWF [facility] Last Admin: 12/28/17 10:40 Dose: 10,000 unit Cefepime HCl (Maxipime Iv 1 Gm Premix) 1 gm in 50 mls @ 100 mls/hr IVPB Q24H [facility] PRN Reason: Protocol Last Admin: 12/28/17 14:28 Dose: 100 mls/hr Ampicillin 1 gm/ Sodium (Chloride) 100 mls @ 200 mls/hr IVPB Q12H [facility] Last Admin: 12/29/17 02:53 Dose: 200 mls/hr Insulin Aspart (Novolog) 0 unit SC ACHS [facility] PRN Reason: Protocol Last Admin: 12/29/17 08:00 Dose: Not Given - Labs Labs: 12/29/17 08:03 12/29/17 08:03 PT 14.1 SECONDS (9.7-12.2) H 12/17/17 11:01 INR 1.2 12/17/17 11:01 APTT 32 SECONDS (21-34) 12/18/17 04:59 - Constitutional Appears: Older Than Stated Age, Chronically Ill - Head Exam Head Exam: ATRAUMATIC, NORMOCEPHALIC - Eye Exam Eye Exam: EOMI, PERRL - ENT Exam ENT Exam: Mucous Membranes Moist - Neck Exam Neck Exam: absent: Lymphadenopathy - Respiratory Exam Respiratory Exam: Clear to Ausculation Bilateral. absent: Rhonchi, Wheezes - Cardiovascular Exam Cardiovascular Exam: REGULAR RHYTHM, +S1, +S2 - GI/Abdominal Exam GI & Abdominal Exam: Soft. absent: Distended, Tenderness - Extremities Exam Extremities Exam: absent: Pedal Edema, Tenderness - Neurological Exam Neurological Exam: Alert, Awake, Oriented x3 - Psychiatric Exam Psychiatric exam: Normal Affect, Normal Mood - Skin Skin Exam: Dry, Intact Assessment and Plan (1) Decubitus ulcers Status: Acute (2) ESRD (end stage renal disease) Status: Acute (3) PVD (peripheral vascular disease) Status: Acute (4) Sepsis associated with vascular access catheter Status: Acute (5) Type 2 diabetes mellitus with diabetic nephropathy Status: Acute (6) Anemia Status: Acute - Assessment and Plan (Free Text) Plan: maintain HD MWF Abx for infection stable renal singer
[2017-12-29 11:01] LABS: BANDS 1 % (0-2); EOSINOPHIL 1 % (0-4); TOTAL CELLS COUNTED 100
[2017-12-29 11:02] LABS: ANISOCYTOSIS SLIGHT; LYMPHOCYTE 11 % (20-40); MONOCYTE 10 % (0-10); NEUTROPHIL 77 % (50-75); OVALOCYTES SLIGHT; PLATELET ESTIMATE NORMAL (NORMAL)
[2017-12-29 11:03] LABS: MICROCYTOSIS SLIGHT; POIKILOCYTOSIS SLIGHT; POLYCHROMIC SLIGHT
[2017-12-29] MEDS: Cefepime IV 1 gm in Dextrose 1 GM/50 ML BAG IVPB SCH (12:29)
--- NOTE | 2017-12-29 14:03 | CP.PCM.PN ---
Subjective - Date & Time of Evaluation Date of Evaluation: 12/29/17 Time of Evaluation: 14:03 - Subjective Subjective: patient is stable for discharge. Objective - Vital Signs/Intake and Output Vital Signs (last 24 hours): Temp Pulse Resp BP Pulse Ox 98.3 F 91 H 20 134/82 96 12/29/17 07:50 12/29/17 07:50 12/29/17 07:50 12/29/17 07:50 12/29/17 07:50 Intake and Output: 12/29/17 12/29/17 11:59 23:59 Intake Total 250 Balance 250 - Medications Medications: Current Medications Acetaminophen (Tylenol 325mg Tab) 650 mg PO Q6 PRN PRN Reason: Headache Last Admin: 12/27/17 23:33 Dose: 650 mg Dextrose (Dextrose 50% Inj) 25 ml IV Q3H PRN PRN Reason: Hypoglycemia Last Admin: 12/23/17 07:44 Dose: 25 ml Epoetin L[place] (Procrit) 10,000 unit IV MWF [facility] Last Admin: 12/28/17 10:40 Dose: 10,000 unit Cefepime HCl (Maxipime Iv 1 Gm Premix) 1 gm in 50 mls @ 100 mls/hr IVPB Q24H [facility] PRN Reason: Protocol Last Admin: 12/29/17 12:29 Dose: 100 mls/hr Ampicillin 1 gm/ Sodium (Chloride) 100 mls @ 200 mls/hr IVPB Q12H [facility] Last Admin: 12/29/17 13:14 Dose: 200 mls/hr Insulin Aspart (Novolog) 0 unit SC ACHS [facility] PRN Reason: Protocol Last Admin: 12/29/17 12:20 Dose: Not Given - Labs Labs: 12/29/17 08:03 12/29/17 08:03 PT 14.1 SECONDS (9.7-12.2) H 12/17/17 11:01 INR 1.2 12/17/17 11:01 APTT 32 SECONDS (21-34) 12/18/17 04:59
[2017-12-29 17:16] VITALS: BP 158/92; PULSE 95; TEMP 99; O2SAT 99
== END 2017-12-29 18:30 | disposition home or self-care (01) | DRG 550 ==
LOC: C.ER 09:56 → C.9E 11:48 → C.9I 12:39 → C.3T 12-22 17:19
PROVIDERS: ADMIT Internal Medicine Cardiovascular Disease; ATTEND Internal Medicine Cardiovascular Disease
PROC: 5A1D70Z Performance of Urinary Filtration, Intermittent, Less than 6 Hours Per Day (ICD-10-PCS; 2017-12-17)
PROC: 30233N1 Transfusion of Nonautologous Red Blood Cells into Peripheral Vein, Percutaneous Approach (ICD-10-PCS; 2017-12-17)
PROC: 5A1D70Z Performance of Urinary Filtration, Intermittent, Less than 6 Hours Per Day (ICD-10-PCS; 2017-12-19)
PROC: 0W9H3ZX Drainage of Retroperitoneum, Percutaneous Approach, Diagnostic (ICD-10-PCS; 2017-12-20)
PROC: 0JB70ZZ Excision of Back Subcutaneous Tissue and Fascia, Open Approach (ICD-10-PCS; principal; 2017-12-20 14:00)
PROC: 03180ZF Bypass Left Brachial Artery to Lower Arm Vein, Open Approach (ICD-10-PCS; 2017-12-21)
PROC: 5A1D70Z Performance of Urinary Filtration, Intermittent, Less than 6 Hours Per Day (ICD-10-PCS; 2017-12-21)
PROC: 5A1D70Z Performance of Urinary Filtration, Intermittent, Less than 6 Hours Per Day (ICD-10-PCS; 2017-12-24)
PROC: 5A1D70Z Performance of Urinary Filtration, Intermittent, Less than 6 Hours Per Day (ICD-10-PCS; 2017-12-26)
PROC: 5A1D70Z Performance of Urinary Filtration, Intermittent, Less than 6 Hours Per Day (ICD-10-PCS; 2017-12-28)
DX: T80.211A Bloodstream infection due to central venous catheter, initial encounter (principal); A41.9 Sepsis, unspecified organism; R65.21 Severe sepsis with septic shock; L89.159 Pressure ulcer of sacral region, unspecified stage; L89.309 Pressure ulcer of unspecified buttock, unspecified stage; L89.619 Pressure ulcer of right heel, unspecified stage; K68.19 Other retroperitoneal abscess; L97.929 Non-pressure chronic ulcer of unspecified part of left lower leg with unspecified severity; L97.919 Non-pressure chronic ulcer of unspecified part of right lower leg with unspecified severity; L02.212 Cutaneous abscess of back [any part, except buttock and flank]; N18.6 End stage renal disease; R64 Cachexia; I12.0 Hypertensive chronic kidney disease with stage 5 chronic kidney disease or end stage renal disease; E87.2 Acidosis; E10.622 Type 1 diabetes mellitus with other skin ulcer; E10.40 Type 1 diabetes mellitus with diabetic neuropathy, unspecified; E10.21 Type 1 diabetes mellitus with diabetic nephropathy; E10.22 Type 1 diabetes mellitus with diabetic chronic kidney disease; E10.51 Type 1 diabetes mellitus with diabetic peripheral angiopathy without gangrene; E10.65 Type 1 diabetes mellitus with hyperglycemia; D64.9 Anemia, unspecified; Y84.8 Other medical procedures as the cause of abnormal reaction of the patient, or of later complication, without mention of misadventure at the time of the procedure; Z91.15 Patient's noncompliance with renal dialysis; Z99.2 Dependence on renal dialysis; Z79.4 Long term (current) use of insulin; Z86.718 Personal history of other venous thrombosis and embolism; Z88.1 Allergy status to other antibiotic agents; Z89.422 Acquired absence of other left toe(s)